=== PATIENT | female | born 1990 | race African-American/Black ===

== ENCOUNTER 2019-12-07 13:40 | Emergency (ER) | payer BC, SELFPAY ==
--- NOTE | ~2019-12-07 | US_ITS ---
EXAMINATION: US OB <= 14 weeks fetus DATE: 12/07/2019 14:40 INDICATION: Pelvic pain during first trimester TECHNIQUE: Real-time pelvic transabdominal and transvaginal ultrasound was performed. COMPARISON: None. FINDINGS: The uterus measures 11.8 x 8.4 x 8.6 cm. The placenta is fundal and 2.3 cm from the technical internship al cervical os. The fetus is in variable presentation. heart motion is identified measuring 159 beats per minute (bpm) by M-mode Doppler. The following biometric data were obtained: Biparietal diameter (BPD): 2.3 cm; head circumference (HC): 9.1 cm; abdominal circumference (AC): 7.5 cm; femur length (FL): 1.2 cm. These measurements are concordant. Estimated weight is 34 g +/- 12 g, which correlates with the 63rd percentile when 06/06/2020 is used as estimated date of delivery. As single measurements, these parameters are each equal to the following estimated gestational ages w ith ranges of +/- 2 standard deviations: BPD: 14 weeks 0 days +/- 1 weeks 1 days. HC: 14 weeks 1 days +/- 1 weeks 1 days. AC: 14 weeks 0 days +/- 1 weeks 5 days. FL: 13 weeks 4 days +/- 1 weeks 3 days. estimated gestational age based solely on measurements from this exam is 14 weeks 0 days +/- 1 weeks 0 days. IMPRESSION: 1. Single live intrauterine . 2. No sonographic correlate for the patient's symptoms. Reviewed, dictated and finalized at location A.
[2019-12-07 14:19] VITALS: BP 131/85; PULSE 96; RESP 20; TEMP 36.6; O2SAT 100
[2019-12-07] MEDS: PROCHLORPERAZINE EDISYLATE 10 MG/2 ML VIAL IV PUSH (14:48)
[2019-12-07] MEDS: FAMOTIDINE 20 MG/2 ML VIAL IV PUSH (14:48)
[2019-12-07] MEDS: DEXTROSE 5%/LACTATED RINGERS 1,000 ML 999 ML IV CONT ×2 (14:48→16:24)
--- NOTE | 2019-12-07 14:50 | ED.GENADULT ---
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 Bear. Patient has been having vomiting for the last 3 days has not taken anything for her symptoms notes multiple episodes of emesis. Patient notes aching pain of the abdomen from vomiting denies any vaginal bleeding or discharge. Patient denies sick contacts or recent URI symptoms. Patient notes G3, P2. Patient has had an ultrasound in this with no complications <Vince Beckham PA-C - Last Filed: 12/07/19 16:19> Related Data Allergies/adverse reactions: Allergies Allergy/AdvReac Type Severity Reaction Status Date / Time No Known Allergies Allergy Verified 12/07/19 14:21 <Vince Beckham PA-C - Last Filed: 12/07/19 16:19> Review of Systems Review of Systems: All systems reviewed & are unremarkable except as noted in HPI and below <Vince Beckham PA-C - Last Filed: 12/07/19 16:19> PMFSH Social History Social History: Social History (Updated 12/07/19 @ 15:08 by Vince Beckham PA-C) Smoking status: Never smoker <Vince Beckham PA-C - Last Filed: 12/07/19 16:19> Exam Narrative: Exam Narrative: GENERAL: Well-appearing, well-nourished, and in no acute distress. HEAD: Normocephalic, atraumatic. EYES: PERRLA and EOMI. ENT: Nares clear, no rhinorrhea or epistaxis. Mucous membranes moist. CHEST: Clear to auscultation. No respiratory distress. No wheezes rales or rhonchi HEART: Regular rate and rhythm. No murmur heard. Normal peripheral pulses. ABDOMEN: Soft, mild discomfort of the abdomen on palpation, distended EXTREMITIES: Normal range of motion. No edema. SKIN: Warm, dry, no rash. NEURO: No focal deficits. Alert and oriented x3. PSYCH: Normal mood and affect. <NIKI Jin Last Filed: 12/07/19 16:19> Course Course Emergency Course: Patient in the room in no distress aware of case findings treatment plan and diagnosis agreeing to follow-up with gynecology as instructed <Vince Beckham PA-C - Last Filed: 12/07/19 16:19> Vital Signs Vital signs: Vital Signs Temperature 36.6 C 12/07/19 14:19 Pulse Rate 96 12/07/19 14:19 Respiratory Rate 20 12/07/19 14:19 Blood Pressure 131/85 12/07/19 14:19 Pulse Oximetry 100 12/07/19 14:19 Temperature 36.6 C 12/07/19 14:19 Pulse Rate 80 12/07/19 16:25 Respiratory Rate 20 12/07/19 16:25 Blood Pressure 118/80 12/07/19 16:25 Pulse Oximetry 99 12/07/19 16:25 <Vince Beckham PA-C - Last Filed: 12/07/19 16:19> Vital Signs Temperature 36.6 C 12/07/19 14:19 Pulse Rate 96 12/07/19 14:19 Respiratory Rate 20 12/07/19 14:19 Blood Pressure 131/85 12/07/19 14:19 Pulse Oximetry 100 12/07/19 14:19 Temperature 36.6 C 12/07/19 14:19 Pulse Rate 80 12/07/19 16:25 Respiratory Rate 20 12/07/19 16:25 Blood Pressure 118/80 12/07/19 16:25 Pulse Oximetry 99 12/07/19 16:25 <Liset Taylor MD - Last Filed: 12/07/19 17:23> Medical Decision Making MDM Narrative Medical decision making narrative: Patient was hydrated in the emergency department with likely emesis secondary to her was given medications 2 L of fluid and is feeling much better at this time tolerating p.o. intake denying any current pain agreeing to follow-up as directed provided with reasons to return <NIKI Jin Last Filed: 12/07/19 16:19> Vital Signs Vital Signs: Vital Signs Temperature 36.6 C 12/07/19 14:19 Pulse Rate 96 12/07/19 14:19 Respiratory Rate 20
[2019-12-07 15:06] LABS: Add Urine Microscopic? YES; Appearance Urine Cloudy (Clear); Bacteria Urine Trace /hpf; Bilirubin Urine Negative (Negative); Blood Urine Negative (Negative); Color Urine Yellow (Yellow); Glucose Urine UA Negative (Negative); Ketones Urine 2+ mg/dL (Negative); Leukocyte Esterase Ur Negative LEU/UL (Negative); Mucus Urine Heavy /lpf; Nitrate Urine Negative (Negative); Protein Urine 1+ mg/dL (Negative); Specific Grav Ur 1.024 (1.001-1.035); Squamous Epithelial Cell Urine Many /hpf (Few)
[2019-12-07 15:10] LABS: Basophils Percent Auto 0.2 % (0.2-1.2); Eosinophils Percent Auto 0.4 % (0-4.4); Hematocrit 35.5 % (37.0-47.0); Hemoglobin 12.3 g/dL (12.0-15.0); Immature Granulocyte Absolute 0.03 K/mm3 (0.00-0.031); Immature Granulocyte Percent A 0.3 % (0-0.5); Lymphocytes Absolute Auto 1.85 K/mm3 (0.9-3.2); Lymphocytes Percent Auto 20.6 % (18.3-44.2); Mean Corpuscular HGB Conc 34.6 g/dl (32-36); Mean Corpuscular Hemoglobin 27.2 pg (26-34); Mean Corpuscular Volume 78.4 fl (80-100); Mean Platelet Volume 11.2 fl (7.4-10.4); Monocytes Absolute Auto 0.7 K/mm3 (0.1-0.6); Monocytes Percent Auto 7.9 % (2.6-8.5); Neutrophils Absolute Auto 6.3 K/mm3 (1.3-6.7); Neutrophils Percent Auto 70.6 % (45.5-73.1); Platelet Count Result 207 k/mm3 (150-375); Red Blood Count 4.53 M/mm3 (4.2-5.4); Red Cell Distribution Width 13.2 % (11.5-14.5)
[2019-12-07 15:21] LABS: Alanine Aminotransferase 9 U/L (4-35); Albumin Level 3.9 g/dL (3.5-5.1); Alkaline Phosphatase 43 U/L (38-126); Aspartate Amino Transferase 18 U/L (14-36); Bilirubin,Total 0.6 mg/dL (0.2-1.3); Blood Urea Nitrogen 3 mg/dL (7-17); Calcium 8.9 mg/dL (8.4-10.2); Carbon Dioxide 21 mmol/L (22-30); Chloride 106 mmol/L (98-107); Estimated Glomerular Filt Rate > 60; Glucose 94 mg/dL (65-105); Lipase 100 U/L (23-300); Potassium 3.7 mmol/L (3.4-5.0); Sodium 133 mmol/L (137-145)
[2019-12-07] MEDS: DEXTROSE 5%/LACTATED RINGERS 1,000 ML 1000 ML IV CONT (15:35)
[2019-12-07 16:25] VITALS: BP 118/80; PULSE 80; RESP 20; O2SAT 99
== END 2019-12-07 16:27 | disposition home or self-care (01) ==
PROVIDERS: Emergency Medicine Emergency Medical Services; Emergency Provider Emergency Medicine; PCP Obstetrics & Gynecology
DX: O21.9 Vomiting of pregnancy, unspecified (principal); Z3A.13 13 weeks gestation of pregnancy
CPT/HCPCS: 36415; 76801; 80053; 81001; 81025; 83690; 85025; 96361; 96374; 96375; 99284; J0780; J7121

== ENCOUNTER 2020-04-17 13:39 | Outpatient (CLI) | payer BC, SELFPAY ==
--- NOTE | ~2020-04-17 | US_ITS ---
EXAMINATION: US OB follow up DATE: 04/17/2020 14:15 INDICATION: Routine care during third trimester TECHNIQUE: Real-time ultrasound of the pelvis was performed. The interpreting radiologist was not pre sent for the study. COMPARISON: None. FINDINGS: There is a single living fetus in vertex presentation. The placenta is posterior. car diac activity and movement are noted. heart rate is 155 beats per minute (bpm). The amnio tic fluid index is 9.1 cm which is normal. The following biometric data were obtained: Biparietal diameter (BPD): 8.0 cm; head circumference (HC): 28.9 cm; abdominal circumference (AC): 27 .3 cm; femur length (FL): 6.2 cm. These measurements are concordant. Estimated weight is 1854 g +/- 278 g, which correlates with the 27th percentile when 06/10/2020 is used as estimated date of delivery. As single measurements, these parameters are each equal to the following estimated gestational ages w ith ranges of +/- 2 standard deviations: BPD: 32 weeks 2 days +/- 3 weeks 1 days. HC: 31 weeks 6 days +/- 3 weeks 0 days. AC: 31 weeks 3 days +/- 3 weeks 0 days. FL: 32 weeks 4 days +/- 3 weeks 0 days. estimated gestational age based solely on measurements from this exam is 32 weeks 0 days +/- 2 weeks 2 days. IMPRESSION: 1. Single living fetus in vertex presentation. 2. Normal amniotic fluid index. 3. Estimated weight is 1854 g +/- 278 g, which correlates with the 27th percentile when 020 is used as estimated date of delivery. Reviewed, dictated and finalized at location A. IMPRESSION: 1. Single living fetus in vertex presentation. 2. Normal amniotic fluid index. 3. Estimated weight is 1854 g +/- 278 g, which correlates with the 27th p ercentile when 06/10/2020 is used as estimated date of delivery.
== END 2020-04-17 13:40 | disposition home or self-care (01) ==
PROVIDERS: PCP Obstetrics & Gynecology; Visit Provider Obstetrics & Gynecology
DX: Z36.9 Encounter for antenatal screening, unspecified (principal)
CPT/HCPCS: 76816

== ENCOUNTER 2020-05-30 14:24 | Observation (INO) | payer BC, SELFPAY ==
[2020-05-30 15:00] VITALS: BP 113/68; PULSE 88
[2020-05-30 15:15] VITALS: BP 116/65; PULSE 89
[2020-05-30 15:30] VITALS: TEMP 36.6
[2020-05-30 15:31] VITALS: BP 119/73; PULSE 84
[2020-05-30 15:47] VITALS: BP 101/63; PULSE 125
[2020-05-30 16:00] VITALS: BP 93/65; PULSE 98
--- NOTE | 2020-05-30 17:10 | OBADM ---
This patient, Tasha Schmitt, admitted to the OB room Labor/Delivery/Recovery 119 for observation. Patient/family oriented to hospital policies and general routines including ID bracelet, bed and alarms, visiting hours, pain management, procedures, bathroom and other care routines, personal items, smoking policy, room service/diet, and visiting hours. Patient/Family are encouraged to report perceived risks to care and to ask questions if they do not understand what they are told or what they should do.
--- NOTE | 2020-05-31 06:56 | PM.OBTRLD ---
OB - Triage/Final Diagnosis Visit Information Date of evaluation: 05/29/20 Reason for evaluation: threatened labor Evaluation Variability: Average (6-10) monitor accelerations: Present monitor decelerations: None Cervical dilation (cm): 0 Cervical effacement (%): 0 station: -4 Final Diagnosis (1) Term : Code(s): Z34.90 - Encounter for supervision of normal , unspecified, unspecified trimester Status: Acute (2) False labor after 37 completed weeks of gestation: Code(s): O47.1 - False labor at or after 37 completed weeks of gestation Status: Acute
== END 2020-05-30 17:00 | disposition home or self-care (01) ==
PROVIDERS: Admitting Provider Obstetrics & Gynecology; Visit Provider Obstetrics & Gynecology
DX: O47.9 False labor, unspecified (principal); Z3A.00 Weeks of gestation of pregnancy not specified
CPT/HCPCS: G0378; G0379

== ENCOUNTER 2020-06-03 13:09 | Inpatient (IN) | payer BC, SELFPAY ==
[2020-05-30 16:25] VITALS: BMI 30.7
[2020-06-03] VITALS (43 sets, daily range): BP systolic 118–176; BP diastolic 65–132; PULSE 69–240; RESP 14–18; TEMP 36.3–37.1; O2SAT 95–100
--- NOTE | 2020-06-03 13:09 | LDADM ---
This patient, Tasha Schmitt, was admitted to OB Post 116 on 06/03/20 at 13:10. Plans for labor, pain management and were discussed with patient. Patient/family oriented to hospital policies and general routines including ID bracelet, bed and alarms, visiting hours, pain management, procedures, bathroom and other care routines, personal items, smoking policy, room service/diet and guest tray routines, security routines, and visiting hours. Patient/Family are encouraged to report perceived risks to care and to ask questions if they do not understand what they are told or what they should do. See OBIX for further documentation.
[2020-06-03] MEDS: LACTATED RINGERS 1,000 ML 999 ML IV CONT ×3 (15:05→18:25)
[2020-06-03 16:10] LABS: Basophils Percent Auto 0.2 % (0.2-1.2); Eosinophils Percent Auto 0.2 % (0-4.4); Hematocrit 32.4 % (37.0-47.0); Hemoglobin 10.7 g/dL (12.0-15.0); Immature Granulocyte Absolute 0.06 K/mm3 (0.00-0.031); Immature Granulocyte Percent A 0.7 % (0-0.5); Lymphocytes Absolute Auto 1.58 K/mm3 (0.9-3.2); Lymphocytes Percent Auto 17.2 % (18.3-44.2); Mean Corpuscular Hemoglobin 26.7 pg (26-34); Mean Corpuscular Volume 80.8 fl (80-100); Mean Platelet Volume 12.2 fl (7.4-10.4); Monocytes Absolute Auto 0.5 K/mm3 (0.1-0.6); Monocytes Percent Auto 5.8 % (2.6-8.5); Neutrophils Percent Auto 75.9 % (45.5-73.1); Platelet Count Result 181 k/mm3 (150-375); Red Blood Count 4.01 M/mm3 (4.2-5.4); Red Cell Distribution Width 14.2 % (11.5-14.5); White Blood Count 9.2 K/mm3 (4.5-10.0)
--- NOTE | 2020-06-03 17:12 | WPDANESEPPF ---
Anes - Initial Pre Proc Eval Procedure: Operation Date: 06/03/20 17:00 Proposed Procedures p Section - Francisco Bear MD Operation Date: 06/07/20 10:30 Proposed Procedures p Repeat Low Transverse Section - Francisco Bear MD Date/Time: 06/03/20 17:12 Surgeon: Francisco Bear MD Pre Op Diagnosis: contractions Patient Data Age: 29 Gender: F Height: 1.6 m Weight: 78.5 kg Last Vital Signs Temp 37.1 C 06/03/20 16:30 Allergies Allergy/AdvReac Type Severity Reaction Status Date / Time No Known Allergies Allergy Verified 12/07/19 14:21 Home Medications Medication Instructions Recorded Confirmed Type [id number] fumarate-FA 1 tablet PO DAILY 05/30/20 06/03/20 History [] acyclovir 800 mg PO DAILY 05/30/20 06/03/20 History ferrous gluconate 324 mg PO DAILY 05/30/20 06/03/20 History Laboratory Tests 06/03/20 06/03/20 06/03/20 15:59 15:59 15:59 WBC 9.2 K/mm3 K/mm3 (4.5-10.0) RBC 4.01 M/mm3 L M/mm3 (4.2-5.4) Hgb 10.7 g/dL L g/dL (12.0-15.0) Hct 32.4 % L % (37.0-47.0) MCV 80.8 fl fl (80-100) MCH 26.7 pg pg (26-34) MCHC 33.0 g/dl g/dl (32-36) RDW 14.2 % % (11.5-14.5) Plt Count 181 k/mm3 k/mm3 (150-375) MPV 12.2 fl H fl (7.4-10.4) Immature Gran % (Auto) 0.7 % H % (0-0.5) Neut % (Auto) 75.9 % H % (45.5-73.1) Lymph % (Auto) 17.2 % L % (18.3-44.2) [place] % (Auto) 5.8 % % (2.6-8.5) Eos % (Auto) 0.2 % % (0-4.4) Baso % (Auto) 0.2 % % (0.2-1.2) Lymph # (Auto) 1.58 K/mm3 K/mm3 (0.9-3.2) [place] # (Auto) 0.5 K/mm3 K/mm3 (0.1-0.6) Eos # (Auto) 0.0 K/mm3 K/mm3 (0-0.3) Baso # (Auto) 0.0 K/mm3 K/mm3 (0.0-0.1) Abs Immat Gran (auto) 0.06 K/mm3 H K/mm3 (0.00-0.031) Absolute Neuts (auto) 7.0 K/mm3 H K/mm3 (1.3-6.7) Absolute Nucleated RBC 0.0 K/mm3 K/mm3 (0.0-0.012) Nucleated RBC % 0.0 % % (0.0-0.2) RPR Pending Blood Type A Positive Antibody Screen Negative Patient hx anesthesia problems: none Family hx anesthesia problems: none PMFSH Past Medical History Medical History (Updated 06/03/20 @ 16:01 by Francisco Bear MD) Anemia affecting Delivered by delivery following previous delivery 01-22-2015, 39 wks 1. M, 6lbs 7oz, repeat Genital herpes GERD (gastroesophageal reflux disease) Group B streptococcal carriage complicating Sickle cell trait Surgical History Surgical History (Updated 06/03/20 @ 16:02 by Francisco Bear MD) Delivery by section 05-21-2013, 40 wks 1. F, 7lbs 1oz, Primary Delivery by section 01-22-2015, 39 wks 1. M, 6lbs 7oz, Family History Family History Grandparent Diabetes mellitus Congestive heart failure Social History Social History (Updated 06/03/20 @ 16:03 by Francisco Bear MD) Smoking status: Former smoker Second hand tobacco smoke exposure: No Alcohol intake: never Substance use: never Substance use type: does not use Last use: October 2019 Living arrangements: with family Occupation/Education: unemployed Gender identity (if verbalized by the patient): Female Sexual Orientation (if Verbalized by the Patient): Straight or Heterosexual Spiritual care concerns: No Agree to blood products: Yes Anes - Evdannielle Final PreProcedure Day of Procedure 06/03/20 17:12 Patient weight: overweight Heart: regular rate and rhythm Lungs: clear to auscultation and normal air movement Airway: Mallampati scale class II Neurological: alert and oriented Last oral intake: >/= 8 hours ASA classification: II Emergent: no Anesthetic plan: proceed Anesthesia
--- NOTE | 2020-06-03 17:23 | P.OP_ITS ---
Procedure Note - Detailed Date of procedure: 06/03/20 Pre-op diagnosis: contractions Term Previous desires repeat section GBS HSV Sickle cell trait Anemia GERD Post-op diagnosis: same (Delivered viable FEMALE infant and placenta) Procedure performed: Repeat low-transverse section with delivery of viable FEMALE infant and placenta Description of procedure: Informed consent was obtained the patient was taken to the operating room where spinal anesthetic was administered. Her abdomen was prepped and draped after a Choi catheter was inserted. A time-out was performed. An elliptical incision was made around the old scar and the old scar was excised using electrocautery. The fascia was entered with electrocautery and extended bilaterally then undermined inferior and superior after this the rectus muscles were in the midline and the peritoneum was entered with electrocautery and the omentum was freed up from the lower uterine segment. The lower in uterine segment appeared to be appearing occult dehiscence by the thin membrane protruding through the lower segment and then rupture of membranes revealed clear fluid. The incision was extended bilaterally the vertex was then delivered via the abdominal incision with nose and throat being bulb suction the cord was clamped and cut and the infant was handed to the nursery nurse in attendance. scores given were 8 and 9 at 1 and 5 minutes baby born at 5:45 p.m. weighing 6 lb 5 oz 18 in long taken to the nursery in stable condition had a normal transition. Cord gases and cord blood were then obtained from the placenta and the placenta was delivered intact with three- vessel cord a very short cord. The uterus contracted well with Pitocin given intravenously and 10 units into the myometrium with the uterus externalized blood clots and membranes removed from the intrauterine cavity and then the uterine incision was repaired in 2 layers with 0 Vicryl in a running interlocking fashion the 2nd being an imbricating stitch adhesiolysis of the omentum from the anterior abdominal wall was then followed by replacing the uterus to the anterior abdominal cavity and irrigation sponge needle and instrument counts were correct the anterior peritoneum and rectus muscles were then reapproximated in the midline in a running fashion with 0 Vicryl suture. Quill SIRS system 2. Was then used to close the fascia in a bilateral fashion. Subcutaneous tissues reapproximated with 3 0 plain suture interrupted fashion skin closed with absorbable staple device INSORB. DERMABOND APPLIED TO THE INCISION AND THEN A MEPILEX DRESSING APPLIED patient was taken to the recovery room stable condition tolerated the procedure well she is breast and bottle feeding blood loss 930 mL Anesthesia: spinal Surgeon: Francisco Bear MD Briquetter Operator: satellite dish technician x2 Estimated blood loss (mL): 930 IV fluids (mL): 2,000 Urine output (mL): 200 Drains: Yes (Choi) Packing: No Pathology: yes (Placenta, cord gases, cord blood) Complications: None Condition: stable Disposition: PACU Findings: Viable FEMALE infant (Jacob Vaz) delivered at 1745 scores 8 + 9 weight 6 lb 5 oz 2860 g length 19 inches SPONTANEOUS RESPIRATIONS AND CRY BULB SUCTION WITH DELIVERY normal exam taken to nursery stable condition normal transition breast and bottle feeding Placenta delivered intact three-vessel cord sent to pathology after cord gases and cord blood obtained very short cord Uterus tubes ovaries normal adhesions omentum anterior abdominal wall Counts correct Complications none Antibiotic prophylaxis Ancef 2 g VTE prevention SCDs To recovery room stable
--- NOTE | 2020-06-03 17:26 | P.PCNOB_ITS ---
OB - Delivery Note Procedure Delivery date: 06/03/20 Procedure: Procedures Operation Date: 06/03/20 17:00 Repeat low-transverse section with delivery of viable and placenta Operation Date: 06/07/20 10:30 None events: Previous Intrapartal events: None Induction method: none Delivery monitor: external FHT and external uterine Route of delivery: (Repeat low-transverse) Episiotomy description: None Laceration Description: None Specimen: Yes Anesthesia type: Spinal Disposition: floor Complications: None Narrative: See dictated report [place] Baby Date of : 06/03/20 Time of : 17:45 Weeks of gestation at delivery: 39 Infant gender: Female (Jacob Vaz) Weight (pounds): 6 Weight (ounces): 5 presentation: vertex position: Left Occiput Anterior Placenta delivery description: Manual Removal and Normal Configuration cord vessel description: 3 Vessels (Short cord) and Clamped/Cut score one minute: 8 score five minutes: 9
[2020-06-03] MEDS: ceFAZolin 2 GM/D5W 50 ML 2 GM/50 ML BAG IVPB (17:28)
[2020-06-03] MEDS: OXYTOCIN 10 UNITS/ML VIAL XX (17:47)
[2020-06-03] MEDS: LORATADINE 10 MG TABLET PO (18:48)
--- NOTE | 2020-06-03 19:25 | PM.OBDSVD ---
DS: Admitting Diagnosis Admitting Diagnosis Admitting Diagnosis: contractions Term Spontaneous onset of labor Previous desires repeat section HSV GBS Sickle cell trait Anemia GERD DS: Discharge Diagnosis Discharge Diagnosis (1) Term delivered: Code(s): O80 - Encounter for full-term uncomplicated delivery Status: Acute (2) S/P repeat low transverse : Code(s): Z98.891 - History of uterine scar from previous surgery Status: Acute (3) Sickle cell trait: Code(s): D57.3 - Sickle-cell trait Status: Acute (4) Group B streptococcal carriage complicating : Code(s): O99.820 - Streptococcus B carrier state complicating Status: Acute (5) Delivery by section: Status: Acute (6) Genital herpes: Code(s): A60.00 - Herpesviral infection of urogenital system, unspecified Status: Acute (7) Anemia affecting : Code(s): O99.019 - Anemia complicating , unspecified trimester Status: Acute OB - DS: Summary Hospital Course Time spent discussing smoking cessation with patient: 3 to 10 minutes OB Procedures : Ultrasound OB Procedures Intrapartum: (Repeat) low cervical, transverse OB Procedures: : None Peripartum Data Infant Delivery Method: Section (Repeat) Laceration Description: None Episiotomy description: None Procedures: Procedures Operation Date: 06/03/20 17:00 Actual Procedures Side Surgeon p Section Francisco Bear MD Operation Date: 06/07/20 10:30 <No data on this case meets the specified criteria> complications: none [place] 1: Gender: Female Disposition of : home Status at Discharge Functional status at discharge: independent ambulation Overall status at discharge: patient is back to baseline Time Spent with Patient Time attestation: Total time spent providing and/or coordinating discharge services: Time spent: Less than 30 minutes Exam Const: General: cooperative Nutritional Appearance: average body habitus Limitations: no limitations HENMT: Head: normal to inspection Eyes: General: appearance normal, both eyes and all related structures Neck: Neck: normal visual inspection and full ROM Chest: Chest palpation & inspection: normal inspection of the chest Breast/axilla inspection: normal inspection of the breasts Breast/axilla palpation: normal palpation of the breasts Resp: Effort & Inspection: normal respiratory effort Auscultation: clear to auscultation bilaterally Cardio: Rate: regular rate Rhythm: regular rhythm Heart sounds: S1 normal heart sound present and S2 normal heart sound present GI: Inspection: normal to inspection and incision (Clean dry intact dressing) GI Palp: Yes Soft to palpation Percussion: Yes normal to percussion Auscultation: normal bowel sounds : External Female Exam: normal external appearance Bimanual exam- vagina & uterus: non-tender Back/Spine/Pelvis: Back: no CVA tenderness Skin: General skin exam: normal color Neuro: General: patient oriented x3, gait normal, tone normal and moves all extremities Extrem: General: normal to inspection and full ROM Psych: Appearance: grossly normal Mental Status: mental status grossly normal Speech and movement: Normal speech and movement present Affect: normal affect Attitude: cooperative Thought process: Normal thought process present Thought content: Yes Normal thought content present Insight: Good insight present (Psych) Judgement: Good judgement present (Psych) DS: Data Data Completed and Pending Pending studies at discharge: Pending at discharge 06/03/20 17:47 Surgical [PTH] Routine Labs on day of discharge: Labs from last 24 hours 06/03/20 06/03/20 06/03/20 15:59 15:59 15:59 WBC 9.2 RBC 4.01 L Hgb 10.7 L Hct 32.4 L MCV 80.8 MCH
[2020-06-03] MEDS: KETOROLAC 30 MG/ML VIAL (*BKC) IV PUSH (20:23)
--- NOTE | 2020-06-03 20:42 | OBPPTRN ---
Patient transferred to post room #282 via stretcher. Support person present. Oriented to unit, room, information board, rooming in, admission packet and security measures. Patient verbalizes understanding.
[2020-06-03] MEDS: OXYTOCIN 30 UNITS/NS 500 ML 30 UNITS/500 ML BAG 125 UNITS IV CONT (20:54)
[2020-06-04] VITALS: BP 135/83; PULSE 75; RESP 16; TEMP 36.9; O2SAT 100
[2020-06-04] MEDS: DEXTROSE 5%/0.45% SOD CHL 1,000 ML 125 ML IV CONT (00:52)
[2020-06-04] MEDS: KETOROLAC 30 MG/ML VIAL (*BKC) IV PUSH (02:03)
[2020-06-04 04:00] VITALS: BP 113/75; PULSE 71; RESP 16; TEMP 36.7; O2SAT 100
[2020-06-04 05:30] LABS: Basophils Percent Auto 0.2 % (0.2-1.2); Eosinophils Absolute Auto 0.1 K/mm3 (0-0.3); Eosinophils Percent Auto 0.5 % (0-4.4); Hematocrit 31.2 % (37.0-47.0); Hemoglobin 10.3 g/dL (12.0-15.0); Immature Granulocyte Absolute 0.06 K/mm3 (0.00-0.031); Immature Granulocyte Percent A 0.5 % (0-0.5); Lymphocytes Absolute Auto 2.05 K/mm3 (0.9-3.2); Lymphocytes Percent Auto 16.6 % (18.3-44.2); Mean Corpuscular Hemoglobin 25.9 pg (26-34); Mean Corpuscular Volume 78.6 fl (80-100); Mean Platelet Volume 12.3 fl (7.4-10.4); Monocytes Percent Auto 8.1 % (2.6-8.5); Neutrophils Absolute Auto 9.1 K/mm3 (1.3-6.7); Neutrophils Percent Auto 74.1 % (45.5-73.1); Platelet Count Result 200 k/mm3 (150-375); Red Blood Count 3.97 M/mm3 (4.2-5.4); Red Cell Distribution Width 13.7 % (11.5-14.5); White Blood Count 12.3 K/mm3 (4.5-10.0)
[2020-06-04 07:50] VITALS: BP 126/88; PULSE 82; RESP 18; TEMP 37.7; O2SAT 100
--- NOTE | 2020-06-04 08:59 | PM.OBPNVD ---
OB - PN: Subj Subjective Date/time seen: 06/04/20 08:59 Patient comments: no complaints, pain well controlled, tolerating diet and flatus present baby status: doing well and bottle feeding well feeding status: exclusively bottle feeding OB - PN: Obj Data Labs CBC & Chem 7: 06/04/20 03:56 Labs: Laboratory Results - last 24 hr 06/03/20 06/03/20 06/04/20 15:59 15:59 03:56 WBC 9.2 12.3 H RBC 4.01 L 3.97 L Hgb 10.7 L 10.3 L Hct 32.4 L 31.2 L MCV 80.8 78.6 L MCH 26.7 25.9 L MCHC 33.0 33.0 RDW 14.2 13.7 Plt Count 181 200 MPV 12.2 H 12.3 H Immature Gran % (Auto) 0.7 H 0.5 Neut % (Auto) 75.9 H 74.1 H Lymph % (Auto) 17.2 L 16.6 L [place] % (Auto) 5.8 8.1 Eos % (Auto) 0.2 0.5 Baso % (Auto) 0.2 0.2 Lymph # (Auto) 1.58 2.05 [place] # (Auto) 0.5 1.0 H Eos # (Auto) 0.0 0.1 Baso # (Auto) 0.0 0.0 Abs Immat Gran (auto) 0.06 H 0.06 H Absolute Neuts (auto) 7.0 H 9.1 H Absolute Nucleated RBC 0.0 0.0 Nucleated RBC % 0.0 0.0 Blood Type A Positive Antibody Screen Negative OB - PN A/P Assessment and Plan (1) S/P repeat low transverse : Code(s): Z98.891 - History of uterine scar from previous surgery Status: Acute (2) Term delivered: Code(s): O80 - Encounter for full-term uncomplicated delivery Status: Acute (3) Sickle cell trait: Code(s): D57.3 - Sickle-cell trait Status: Acute (4) Anemia affecting : Code(s): O99.019 - Anemia complicating , unspecified trimester Status: Acute Plan day: 1 Plan: routine care, discharge home (Tomorrow) and follow up 6 weeks (3 weeks) Time Spent With Patient Time: Total time spent is greater than 50% in coordination of care (as documented) at patient's floor/unit and/or counseling patient: Time with patient: less than 15 minutes Review of Systems Review of Systems: All systems reviewed & are unremarkable except as noted in HPI and below Exam Const: General: cooperative, healthy appearing, comfortable, no acute distress, well developed, alert, awake and Physically active Nutritional Appearance: average body habitus and well nourished Orientation/consciousness: patient oriented x3 Limitations: no limitations HENMT: Head: normal to inspection Eyes: General: appearance normal, both eyes and all related structures Neck: Neck: normal visual inspection and full ROM Chest: Chest palpation & inspection: normal inspection of the chest Resp: Effort & Inspection: normal respiratory effort Cardio: Rate: regular rate Rhythm: regular rhythm GI: Inspection: normal to inspection GI Palp: Yes Soft to palpation Auscultation: normal bowel sounds : External Female Exam: normal external appearance Urinary Catheter: Urinary Catheter: patent and draining and urine clear Back/Spine/Pelvis: Back: no CVA tenderness Skin: General skin exam: normal color Neuro: General: patient oriented x3, tone normal and moves all extremities Extrem: General: normal to inspection, full ROM and no calf tenderness Psych: Appearance: grossly normal Mental Status: mental status grossly normal Speech and movement: Normal speech and movement present Affect: normal affect Attitude: cooperative Thought process: Normal thought process present Thought content: Yes Normal thought content present Insight: Good insight present (Psych) Judgement: Good judgement present (Psych)
--- NOTE | 2020-06-04 09:05 | PC.NURSE ---
consult with pt., mother reports is latching without issues. Mother chooses to breast and supplement, as she did with other children. Requested mother call out next feeding to review . Reviewed infant feeding cues, frequencies, duration of feedings, feeding elimination flow sheet, and signs of adequate intake.
[2020-06-04] MEDS: MULTIVIT/MIN/PREN/FOL AC/IRON TABLET 1 TAB PO (10:47)
[2020-06-04] MEDS: HYDROcodone/acetaminophen (*CRX) 10-325 MG TABLET 1 TAB PO ×3 (10:47→21:00)
[2020-06-04] MEDS: DOCUSATE SODIUM 100 MG CAPSULE PO ×2 (10:47→17:44)
[2020-06-04] MEDS: ACYCLOVIR 400 MG TABLET 800 MG PO (10:47)
[2020-06-04] MEDS: FERROUS GLUCONATE 324 MG TABLET PO (10:53)
[2020-06-04 11:01] LABS: Rapid Plasma Reagin Non-Reactive (NonReactive)
--- NOTE | 2020-06-04 11:04 | WPDANLDPN2 ---
Anes-Prog Note L&D Date/Time: 06/04/20 11:04 Comfortable throughout: section Neuraxial method: spinal Epidural/Spinal procedure site: clean & non-tender Neuro status: Neuro function grossly intact. Cardiovascular status: normal Respiratory status: normal Airway patency: baseline Mental status: baseline Post-Op hydration status: normal Vital Signs: Last Vital Signs Temp 37.7 C H 06/04/20 07:50 Pulse 82 06/04/20 07:50 Resp 18 06/04/20 07:50 BP 126/88 06/04/20 07:50 Pulse Ox 100 06/04/20 07:50 Pain score (VAS): 5 I/O: Intake & Output 06/03/20 06/04/20 06/04/20 23:59 07:59 15:59 Intake Total 3100 1590 Output Total 1430 1100 Balance 1670 490 Post-procedural complaints: none Patient feedback: Patient satisfied with anesthetic care.
--- NOTE | 2020-06-04 11:05 | WPDANLDNPN2 ---
Anes-Prog Note L&D-Neuraxial Date/Time: 06/04/20 11:05 Neuraxial medications: intrathecal PF morphine Opiod-related complaints: none Patient feedback: Patient satisfied with post-operative pain management.
[2020-06-04 11:35] VITALS: BP 131/87; PULSE 75; RESP 18; TEMP 37.4; O2SAT 100
[2020-06-04] MEDS: IBUPROFEN 600 MG TABLET PO (17:45)
[2020-06-04 20:00] VITALS: BP 132/94; PULSE 86; RESP 16; TEMP 36.7; O2SAT 100
[2020-06-04] MEDS: diphenhydrAMINE HCl CAP 25 MG CAPSULE 50 MG PO (22:00)
[2020-06-05] MEDS: HYDROcodone/acetaminophen (*CRX) 10-325 MG TABLET 1 TAB PO ×3 (02:20→15:23)
[2020-06-05] MEDS: IBUPROFEN 600 MG TABLET PO ×2 (02:20→15:24)
[2020-06-05] MEDS: MULTIVIT/MIN/PREN/FOL AC/IRON TABLET 1 TAB PO (06:49)
[2020-06-05] MEDS: DOCUSATE SODIUM 100 MG CAPSULE PO (06:49)
[2020-06-05 08:40] VITALS: BP 112/63; PULSE 92; RESP 18; TEMP 36.7; O2SAT 100
[2020-06-05] MEDS: HYDROcodone/acetaminophen (*CRX) 5-325 MG TABLET 1 TAB PO (11:36)
--- NOTE | 2020-06-05 14:27 | PC.NURSE ---
Attempt to consult 2 times this day, patient is sleeping requesting a later visit.
[2020-06-05] MEDS: SIMETHICONE 80 MG TAB.CHEW PO (15:23)
[2020-06-05 19:03] VITALS: BP 117/90; PULSE 81; RESP 16; TEMP 36.7; O2SAT 100
[2020-06-06] MEDS: IBUPROFEN 600 MG TABLET PO ×2 (04:39→13:44)
[2020-06-06] MEDS: HYDROcodone/acetaminophen (*CRX) 5-325 MG TABLET 1 TAB PO (04:39)
[2020-06-06 08:05] VITALS: BP 158/99; PULSE 81; RESP 16; TEMP 37.3; O2SAT 98
--- NOTE | 2020-06-06 08:30 | P.PNOB_ITS ---
OB - PN: Subj Subjective Date/time seen: 06/05/20 08:30 Interval history: s/p rcs pod2 stable Patient comments: no complaints, pain well controlled and tolerating diet baby status: doing well and bottle feeding well feeding status: exclusively bottle feeding OB - PN: Obj Data Labs CBC & Chem 7: 06/04/20 03:56 OB - PN A/P Assessment and Plan (1) S/P repeat low transverse : Code(s): Z98.891 - History of uterine scar from previous surgery Status: Acute Plan day: 2 Plan: routine care, discharge home (In the morning) and follow up 6 weeks (3 week) Time Spent With Patient Time: Total time spent is greater than 50% in coordination of care (as document ed) at patient's floor/unit and/or counseling patient: Time with patient: less than 15 minutes Review of Systems Review of Systems: All systems reviewed & are unremarkable except as noted in HPI and below Exam Const: General: cooperative, healthy appearing, comfortable, no acute distress, alert, awake and Physically active Nutritional Appearance: average body habitus and well nourished Orientation/consciousness: patient oriented x3 Limitations: no limitations HENMT: Head: normal to inspection Eyes: General: appearance normal, both eyes and all related structures Neck: Neck: normal visual inspection Chest: Chest palpation & inspection: normal inspection of the chest Resp: Effort & Inspection: normal respiratory effort Auscultation: clear to auscultation bilaterally Cardio: Rate: regular rate Rhythm: regular rhythm GI: Inspection: normal to inspection and incision (Dressing dry and intact) GI Palp: Yes Soft to palpation Auscultation: normal bowel sounds : External Female Exam: normal external appearance Bimanual exam- vagina & uterus: non-tender Back/Spine/Pelvis: Back: no CVA tenderness Skin: General skin exam: normal color Neuro: General: patient oriented x3, gait normal, tone normal and moves all extremities Extrem: General: normal to inspection, full ROM and no calf tenderness Psych: Appearance: grossly normal Mental Status: mental status grossly normal Speech and movement: Normal speech and movement present Affect: normal affect Attitude: cooperative Thought process: Normal thought process present Thought content: Yes Normal thought content present Insight: Good insight present (Psych) Judgement: Good judgement present (Psych)
[2020-06-06] MEDS: MULTIVIT/MIN/PREN/FOL AC/IRON TABLET 1 TAB PO (08:52)
[2020-06-06] MEDS: HYDROcodone/acetaminophen (*CRX) 10-325 MG TABLET 1 TAB PO ×2 (08:52→13:45)
[2020-06-06] MEDS: DOCUSATE SODIUM 100 MG CAPSULE PO (08:52)
[2020-06-06] MEDS: FERROUS GLUCONATE 324 MG TABLET PO (08:53)
[2020-06-06] MEDS: ACYCLOVIR 400 MG TABLET 800 MG PO (08:53)
[2020-06-06 11:00] VITALS: BP 125/68
== END 2020-06-06 14:46 | disposition home or self-care (01) | DRG 540 ==
LOC: ANHOBPP 19:33 → ANHOB2 20:48
PROVIDERS: Admitting Provider Obstetrics & Gynecology; Visit Provider Obstetrics & Gynecology
PROC: 10D00Z1 Extraction of Products of Conception, Low, Open Approach (ICD-10-PCS; CPT 59514; principal; 2020-06-03 17:00)
DX: O99.824 Streptococcus B carrier state complicating childbirth (principal); O69.3XX0 Labor and delivery complicated by short cord, not applicable or unspecified; O98.52 Other viral diseases complicating childbirth; B00.9 Herpesviral infection, unspecified; O99.02 Anemia complicating childbirth; D64.9 Anemia, unspecified; D57.3 Sickle-cell trait; O99.62 Diseases of the digestive system complicating childbirth; K66.0 Peritoneal adhesions (postprocedural) (postinfection); Z3A.39 39 weeks gestation of pregnancy; Z37.0 Single live birth; O34.211 Maternal care for low transverse scar from previous cesarean delivery
CPT/HCPCS: 36415; 85025; 86592; 86850; 86900; 86901; 88307; A9270; J0131; J0690; J1885; J2274; J2370; J2405; J2590; J3010; J7120

== ENCOUNTER 2021-12-15 09:13 | Emergency (ER) | payer OTHER, BC, SELFPAY ==
[2021-12-15] VITALS (24 sets, daily range): BP systolic 128–164; BP diastolic 87–111; PULSE 72–117; RESP 8–32; TEMP 37.2; O2SAT 96–100
--- NOTE | ~2021-12-15 | XR_ITS ---
EXAMINATION: XR chest 2V 12/15/2021 10:48 INDICATION: Chest pain PROCEDURE: 2 view chest COMPARISON: No prior studies for comparison. FINDINGS: The lungs are clear. The cardiomediastinal silhouette is within normal limits. There are no pleural effusions. There is no pneumothorax suspected. IMPRESSION: 1: NO ACUTE CARDIOPULMONARY DISEASE. Reviewed, dictated and finalized at location B.
--- NOTE | 2021-12-15 09:42 | ECG_ITS ---
Measurements Intervals [place] Rate: 97 P: 71 TX: 127 QRS: 68 QRSD: 91 T: 51 QT: 335 QTc: 426 Interpretive Statements SINUS RHYTHM NORMAL ECG NO PREVIOUS ECG AVAILABLE FOR COMPARISON Electronically Signed On 12-15-2021 10:27:59 CDT by Bobby Bryan M.D.
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
[2021-12-15] MEDS: HYDROmorphone HCL INJ (*CRX) 1 MG/ML SYR 0.5 MG IV PUSH (10:39)
[2021-12-15] MEDS: SODIUM CHLORIDE 0.9% IV 1,000 ML 999 ML IV CONT (10:39)
[2021-12-15 10:41] LABS: Basophils Percent Auto 0.3 % (0.2-1.2); Eosinophils Percent Auto 0.2 % (0-4.4); Hematocrit 37.7 % (37.0-47.0); Hemoglobin 12.8 g/dL (12.0-15.0); Immature Granulocyte Absolute 0.03 K/mm3 (0.00-0.031); Immature Granulocyte Percent A 0.3 % (0-0.5); Lymphocytes Absolute Auto 1.84 K/mm3 (0.9-3.2); Lymphocytes Percent Auto 17.8 % (18.3-44.2); Mean Corpuscular Hemoglobin 26.7 pg (26-34); Mean Corpuscular Volume 78.7 fl (80-100); Mean Platelet Volume 11.1 fl (7.4-10.4); Monocytes Absolute Auto 0.8 K/mm3 (0.1-0.6); Monocytes Percent Auto 7.7 % (2.6-8.5); Neutrophils Absolute Auto 7.6 K/mm3 (1.3-6.7); Neutrophils Percent Auto 73.7 % (45.5-73.1); Platelet Count Result 238 k/mm3 (150-375); Red Blood Count 4.79 M/mm3 (4.2-5.4); Red Cell Distribution Width 13.9 % (11.5-14.5); White Blood Count 10.3 K/mm3 (4.5-10.0)
[2021-12-15 10:44] LABS: Alanine Aminotransferase 17 U/L (6-35); Albumin Level 4.4 g/dL (3.5-5.1); Alkaline Phosphatase 61 U/L (38-126); Anion Gap 5 mmol/L (8-16); Aspartate Amino Transferase 25 U/L (14-36); Bilirubin,Total 0.2 mg/dL (0.2-1.3); Blood Urea Nitrogen 13 mg/dL (7-17); Calcium 8.9 mg/dL (8.4-10.2); Carbon Dioxide 27 mmol/L (22-30); Chloride 109 mmol/L (98-107); Estimated CRCL calculation 83 ml/min; Estimated Glomerular Filt Rate > 60; Glucose 97 mg/dL (65-110); Lactic Acid Reflex 0.9 mmol/L (0.7-2.0); Lipase 117 U/L (23-300); Sodium 141 mmol/L (137-145)
[2021-12-15 10:56] LABS: Troponin I < 0.012 ng/mL (0.000-0.034)
[2021-12-15 10:57] LABS: Atypical Lymphocytes Present; Hypochromasia 1+ (NORMAL); Platelet Estimate Adequate (Adequate)
--- NOTE | 2021-12-15 11:25 | PC.NURSE ---
vorb for zofran [address] sanchez d/t nausea/vomiting after Dilaudid
[2021-12-15] MEDS: ONDANSETRON INJ 4 MG/2 ML VIAL (11:26)
== END 2021-12-15 12:31 | disposition home or self-care (01) ==
PROVIDERS: Emergency Provider Emergency Medicine
DX: R07.9 Chest pain, unspecified (principal); R07.89 Other chest pain; K21.9 Gastro-esophageal reflux disease without esophagitis; V89.2XXA Person injured in unspecified motor-vehicle accident, traffic, initial encounter
CPT/HCPCS: 36415; 71046; 80053; 81025; 83605; 83690; 84484; 85025; 93005; 96361; 96374; 96375; 99284; J1170; J2405; J7030

== ENCOUNTER 2022-09-07 11:07 | Observation (INO) | payer BC, SELFPAY ==
[2022-09-07] VITALS (12 sets, daily range): BP systolic 122–157; BP diastolic 83–104; PULSE 67–130; RESP 16–20; TEMP 36.4–36.8; O2SAT 98–100; BMI 26.4
--- NOTE | ~2022-09-07 | XR_ITS ---
Clinical Indication: Chest pain PA and lateral views of the chest: Comparison: 12/15/2021 Findings: The lungs are clear, without evidence of focal consolidation or pleural effusion. Cardiome diastinal silhouette is within normal limits. Bones and soft tissues are unremarkable. Impression: Normal chest. Reviewed, dictated and finalized at [facility]. ERIZER Impression: Normal chest.
--- NOTE | ~2022-09-07 | XR_ITS ---
EXAMINATION: XR abdomen obstructive series DATE: 09/10/2022 12:55 INDICATION: Constipation. Abdomen pain. TECHNIQUE: Supine and upright views of the abdomen. FINDINGS: No prior studies for comparison. The visualized lung parenchyma is normal.. There is a nonobstructive bowel gas pattern. Gas and stool are seen throughout the colon to the level of the rectum. There is no free air. Prominent right nip ple shadow. IMPRESSION: 1. No acute abdominal abnormality. Reviewed, dictated and finalized at location L. H TENDER
--- NOTE | ~2022-09-07 | CT_ITS ---
EXAMINATION: CT abdomen pelvis w con DATE: 09/07/2022 14:48 INDICATION: Right lower quadrant pain TECHNIQUE: Computed tomography (CT) of the abdomen and pelvis was performed with 100 cc Omnipaque 350 intravenous contrast. The dose-length product was 310.18 mGy-cm. Automated exposure control and iterative reconstruction technique were employed. COMPARISON: None. FINDINGS: Lung bases are unremarkable. Heart size is normal. No significant pleural or pericardial ef fusion. Fatty infiltration of the liver. Gallbladder is present. The spleen, pancreas, adrenal glands and lef t kidney are unremarkable. There is hypoperfusion of the right renal cortex superiorly, suspicious fo r pyelonephritis. No hydronephrosis. There is endometrial thickening measuring 1.5 cm. There is a 2.1 cm right adnexal cyst, most likely ovarian. Trace free fluid in the pelvis. Nonobstructive bowel gas pattern. No significant vascular abnormality. Retroaortic left renal vein. No free air. Bladder wall is mildly prominent, likely due to underdistention. The appendix is not positively visualized. Ther e is no pericecal inflammatory change to suggest appendicitis. IMPRESSION: 1. Focal hypoperfusion of the right renal cortex of the upper pole laterally, suspicious for pyelonep hritis. Correlate clinically. 2: Endometrial thickening measuring 1.5 cm. 2: Right adnexal cyst measuring 2.1 cm, likely ovarian. Reviewed, dictated and finalized at location B. CING MANAGER IMPRESSION: 1. Focal hypoperfusion of the right renal cortex of the upper pole laterally, s uspicious for pyelonephritis. Correlate clinically. 2: Endometrial thickening measuring 1.5 cm. 2: Right adnexal cyst measuring 2.1 cm, likely ovarian.
--- NOTE | 2022-09-07 11:21 | ECG_ITS ---
Measurements Intervals [place] Rate: 104 P: 67 ND: 129 QRS: 64 QRSD: 90 T: 49 QT: 309 QTc: 407 Interpretive Statements SINUS TACHYCARDIA POSSIBLE LEFT ATRIAL ENLARGEMENT BORDERLINE ECG COMPARED TO ECG 12/15/2021 09:46:02 HEART RATE HAS INCREASED Electronically Signed On 09-07-2022 14:38:53 JEWELRY MECHANIC by Daniel Teixeira M.D.
--- NOTE | 2022-09-07 11:34 | PC.NURSE ---
Blood not drawn at triage because pt. wants blood and IV at same time; explained I would not be putting in IV and sending her to waiting room with it. Pt. replied that I was rude .
[2022-09-07 12:16] LABS: Basophils Percent Auto 0.3 % (0.2-1.2); Eosinophils Absolute Auto 0.1 K/mm3 (0-0.3); Eosinophils Percent Auto 0.6 % (0-4.4); Hematocrit 37.9 % (37.0-47.0); Hemoglobin 12.4 g/dL (12.0-15.0); Immature Granulocyte Absolute 0.03 K/mm3 (0.00-0.031); Immature Granulocyte Percent A 0.3 % (0-0.5); Lymphocytes Absolute Auto 1.53 K/mm3 (0.9-3.2); Lymphocytes Percent Auto 14.2 % (18.3-44.2); Mean Corpuscular HGB Conc 32.7 g/dl (32-36); Mean Corpuscular Hemoglobin 26.1 pg (26-34); Mean Corpuscular Volume 79.8 fl (80-100); Mean Platelet Volume 10.2 fl (7.4-10.4); Monocytes Absolute Auto 0.9 K/mm3 (0.1-0.6); Monocytes Percent Auto 8.5 % (2.6-8.5); Neutrophils Absolute Auto 8.2 K/mm3 (1.3-6.7); Neutrophils Percent Auto 76.1 % (45.5-73.1); Platelet Count Result 365 k/mm3 (150-375); Red Blood Count 4.75 M/mm3 (4.2-5.4); Red Cell Distribution Width 14.6 % (11.5-14.5); White Blood Count 10.8 K/mm3 (4.5-10.0)
[2022-09-07 12:26] LABS: INR 1.1; Partial Thromboplastin Time 28.9 SECONDS (22.3-36.8); Prothrombin Time 13.3 Seconds (11.1-14.7)
[2022-09-07 12:55] LABS: Alanine Aminotransferase 18 U/L (6-35); Albumin Level 4.5 g/dL (3.5-5.1); Alkaline Phosphatase 72 U/L (38-126); Anion Gap 6 mmol/L (8-16); Aspartate Amino Transferase 28 U/L (14-36); Bilirubin,Total 0.5 mg/dL (0.2-1.3); Blood Urea Nitrogen 7 mg/dL (7-17); Calcium 9.3 mg/dL (8.4-10.2); Carbon Dioxide 26 mmol/L (22-30); Chloride 104 mmol/L (98-107); Estimated CRCL calculation 90 ml/min; Estimated Glomerular Filt Rate > 60; Glucose 93 mg/dL (65-110); Lipase 62 U/L (23-300); Potassium 3.6 mmol/L (3.4-5.0); Sodium 136 mmol/L (137-145)
[2022-09-07 13:15] LABS: Troponin I < 0.012 ng/mL (0.000-0.034)
--- NOTE | 2022-09-07 14:11 | ED.ABDPAIN ---
HPI - Abdominal Pain General Chief Complaint: Abdominal Pain Stated Complaint: right side pain Time Seen by Provider: 09/07/22 13:40 History of Present Illness HPI narrative: Patient is a 32-year-old female presenting with abdominal pain. Patient states that for the last 2 days she has had right-sided abdominal pain that has been worsening. States that she took ibuprofen last night with minimal relief. States that she did have several episodes of vomiting when the pain started. She denies nausea or vomiting today. Reports constipation, no diarrhea. No dysuria or hematuria. LMP was approximately 6 days ago. States that the right-sided abdominal pain also goes into the right side of her chest. No fevers or chills, shortness of breath, cough, leg swelling. No vaginal discharge. Related Data Allergies Allergy/AdvReac Type Severity Reaction Status Date / Time No Known Allergies Allergy Verified 09/07/22 17:09 Review of Systems Review of Systems: All systems reviewed & are unremarkable except as noted in HPI and below PMFSH Past Medical History Medical History Anemia affecting Delivered by delivery following previous delivery 01-22-2015, 39 wks 1. M, 6lbs 7oz, repeat Genital herpes GERD (gastroesophageal reflux disease) Group B streptococcal carriage complicating Sickle cell trait Surgical History Surgical History Delivery by section 05-21-2013, 40 wks 1. F, 7lbs 1oz, Primary Delivery by section 01-22-2015, 39 wks 1. M, 6lbs 7oz, Family History Family History Grandparent No problems noted. Father Heart disease Sibling Diabetes mellitus Mother Liver cirrhosis Social History Social History Smoking status: Current every day smoker Smokeless tobacco user: other Second hand tobacco smoke exposure: No Alcohol intake: current Drinks per week: 10 Substance use: current Substance use type: marijuana Last use: October 2019 Lack of Transportation: No Lack of Food: Never True Current Housing: I Have Housing Concerned About Future Housing: No Difficulty Paying Gas/Electric Bills: No Difficulty Paying for Meds: No Currently Unemployed: YES Education: High School Diploma/GED Difficulty w/ Childcare or Family Care: No Living arrangements: with family Occupation/Education: unemployed Gender identity (if verbalized by the patient): Female Sexual Orientation (if Verbalized by the Patient): Straight or Heterosexual Spiritual care concerns: No Agree to blood products: Yes Exam Narrative: GENERAL: Uncomfortable appearing HEAD: Normocephalic, atraumatic. EYES: PERRLA and EOMI. ENT: Nares clear, no rhinorrhea or epistaxis. Mucous membranes moist. NECK: Supple. CHEST: Clear to auscultation. No respiratory distress. HEART: Regular rate and rhythm. No murmur heard. Normal peripheral pulses. ABDOMEN: + Right lower quadrant tenderness without guarding or rebound. EXTREMITIES: Normal range of motion. No edema. SKIN: Warm, dry, no rash. NEURO: No focal deficits. Alert and oriented x3. PSYCH: Normal mood and affect. Course Vital Signs Vital signs: Vital Signs Temperature 97.7 F 09/07/22 11:16 Pulse Rate 130 H 09/07/22 11:16 Respiratory Rate 18 09/07/22 11:16 Blood Pressure 141/94 H 09/07/22 11:16 Pulse Oximetry 100 09/07/22 11:16 Oxygen Delivery Room Air 09/07/22 11:16 Temperature 98.2 F 09/07/22 16:41 Pulse Rate 79 09/07/22 17:00 Respiratory Rate 16 09/07/22 17:00 Blood Pressure 145/89 H 09/07/22 17:00 Pulse Oximetry 98 09/07/22 17:00 Oxygen Delivery Room Air 09/07/22 16:45 MDM - Abdominal Pain MDM Narrative Medi
[2022-09-07] MEDS: HYDROmorphone HCL INJ (*CRX) 1 MG/ML SYR 0.5 MG IV PUSH (14:28)
[2022-09-07] MEDS: SODIUM CHLORIDE 0.9% IV 1,000 ML 999 ML IV CONT (14:29)
[2022-09-07 15:00] LABS: Appearance Urine Slightly Cloudy (Clear); Bilirubin Urine Negative (Negative); Blood Urine Trace-intact (Negative); Color Urine Yellow (Yellow); Glucose Urine UA Negative (Negative); Ketones Urine Negative (Negative); Leukocyte Esterase Ur 2+ LEU/UL (Negative); Nitrate Urine Negative (Negative); Protein Urine Trace mg/dL (Negative); Specific Grav Ur 1.015 (1.001-1.035); pH Urine 8.5 (5.0-9.0)
[2022-09-07 15:12] LABS: Bacteria Urine Trace /hpf; Mucus Urine Rare /lpf; Squamous Epithelial Cell Urine Rare /hpf (Few); WBC Urine >75 /hpf
[2022-09-07 15:16] LABS: Add Urine Microscopic? YES
[2022-09-07 15:17] LABS: Troponin I < 0.012 ng/mL (0.000-0.034)
--- NOTE | 2022-09-07 15:33 | PM.IMHP ---
H&P: HPI History of Present Illness Date/Time: 09/07/22 15:33 Chief Complaint: flank pain + dysuria Narrative: 32-year-old female with past medical history significant for GERD and sickle cell trait is presenting with right-sided flank pain, nausea and right-sided lower abdominal pain. She states she was recently on vacation to [place] and [place] and ate a lot of shellfish and drank a lot of alcohol. She thinks she is quite dehydrated as well as she did not drink much water. She denies any sick contacts. She states she had nausea and an episode of emesis 2 days ago. Since then, she has had progressively worsening flank and abdominal pain. She denies any dysuria, urinary urgency or frequency. No hematuria. No chest pain or shortness of breath. She has not had a UTI recently or been on antibiotics. She denies any vaginal discharge or suprapubic tenderness. She does admit to having sickle cell trait but has never had a sickle cell crisis. In the ER, she was noted to have abnormal urinalysis as well as focal hypoperfusion of the right renal cortex concerning for pyelonephritis on imaging. She was started on IV fluids and given a dose of Rocephin. Toradol and morphine were given for pain control. Review of Systems Review of Systems: 12 point review of systems was assessed and was negative except as noted in the HPI PMFSH Past Medical History Medical History Anemia affecting Delivered by delivery following previous delivery 01-22-2015, 39 wks 1. M, 6lbs 7oz, repeat Genital herpes GERD (gastroesophageal reflux disease) Group B streptococcal carriage complicating Sickle cell trait Surgical History Surgical History Delivery by section 05-21-2013, 40 wks 1. F, 7lbs 1oz, Primary Delivery by section 01-22-2015, 39 wks 1. M, 6lbs 7oz, Family History Family History Grandparent No problems noted. Father Heart disease Sibling Diabetes mellitus Mother Liver cirrhosis Social History Social History (Reviewed 09/07/22 @ 19:36 by RAUL Lux Smoking status: Current every day smoker Smokeless tobacco user: other Second hand tobacco smoke exposure: No Alcohol intake: current Drinks per week: 10 Substance use: current Substance use type: marijuana Last use: October 2019 Lack of Transportation: No Lack of Food: Never True Current Housing: I Have Housing Concerned About Future Housing: No Difficulty Paying Gas/Electric Bills: No Difficulty Paying for Meds: No Currently Unemployed: YES Education: High School Diploma/GED Difficulty w/ Childcare or Family Care: No Living arrangements: with family Occupation/Education: unemployed Gender identity (if verbalized by the patient): Female Sexual Orientation (if Verbalized by the Patient): Straight or Heterosexual Spiritual care concerns: No Agree to blood products: Yes Meds Home Medications and Allergies Home Medications Medication Instructions Recorded Confirmed Type ibuprofen 600 mg tablet 600 mg PO Q6H #100 tabs 06/03/20 09/07/22 Rx Allergies Allergy/AdvReac Type Severity Reaction Status Date / Time No Known Allergies Allergy Verified 09/07/22 17:09 Vital Signs Vital Signs - 24 hr 09/07/22 11:16 09/07/22 11:28 09/07/22 14:02 Temperature 97.7 F Pulse Rate 130 H 104 H 69 Respiratory Rate 18 18 Blood Pressure 141/94 H 147/102 H Pulse Oximetry 100 100 Oxygen Delivery Room Air 09/07/22 14:32 09/07/22 14:33 09/07/22 15:01 Temperature Pulse Rate 85 77 67 Respiratory Rate 20 18 18 Blood Pressure 157/104 H Pulse Oximetry 100 100 100 Oxygen Delivery Exam Narrative: General: Mild distress secondary to flank
--- NOTE | 2022-09-07 16:30 | PC.NURSE ---
This patient, Tasha Schmitt, was admitted to 3 [facility] Surg Room 312-01. Patient/family oriented to hospital policies and general routines including ID bracelet, bed and alarms, visiting hours, pain management, procedures, bathroom and other care routines, personal items, smoking policy, room service/diet, and visiting hours. Report received from Tonia HUANG Information on how to activate the Rapid Response Team has been discussed. Patient/Family are encouraged to report perceived risks to care and to ask questions if they do not understand what they are told or what they should do.
[2022-09-07] MEDS: SODIUM CHLORIDE 0.9% IV 1,000 ML 125 ML IV CONT (16:42)
[2022-09-07] MEDS: KETOROLAC 30 MG/ML VIAL (*BKC) IV PUSH (16:42)
[2022-09-07 16:44] LABS: Influenza A QL RT-PCR Negative (Negative); Influenza B QL RT-PCR Negative (Negative); SARS-CoV-2 RNA PCR Negative
[2022-09-07] MEDS: ACETAMINOPHEN 325 MG TABLET 650 MG PO (18:37)
[2022-09-07] MEDS: MORPHINE SULFATE (*CRX) 2 MG/ML INJ IV PUSH ×2 (18:55→22:49)
[2022-09-07 19:50] LABS: Troponin I < 0.012 ng/mL (0.000-0.034)
[2022-09-07 22:03] LABS: Pregnancy On Board Control Positive; Urine Pregnancy Test Negative
[2022-09-08] VITALS: BP 137/90; PULSE 84; RESP 20; TEMP 36.5; O2SAT 100
[2022-09-08] MEDS: SODIUM CHLORIDE 0.9% IV 1,000 ML 125 ML IV CONT ×3 (01:38→20:48)
[2022-09-08] MEDS: KETOROLAC 30 MG/ML VIAL (*BKC) IV PUSH ×4 (01:48→23:09)
[2022-09-08 04:00] VITALS: BP 135/99; PULSE 85; RESP 18; TEMP 36.4; O2SAT 100
[2022-09-08 06:30] LABS: Basophils Percent Auto 0.3 % (0.2-1.2); Eosinophils Absolute Auto 0.1 K/mm3 (0-0.3); Eosinophils Percent Auto 1.6 % (0-4.4); Hematocrit 33.1 % (37.0-47.0); Hemoglobin 10.6 g/dL (12.0-15.0); Immature Granulocyte Absolute 0.03 K/mm3 (0.00-0.031); Immature Granulocyte Percent A 0.3 % (0-0.5); Lymphocytes Absolute Auto 1.74 K/mm3 (0.9-3.2); Lymphocytes Percent Auto 19.7 % (18.3-44.2); Mean Corpuscular Hemoglobin 25.7 pg (26-34); Mean Corpuscular Volume 80.3 fl (80-100); Mean Platelet Volume 10.7 fl (7.4-10.4); Monocytes Percent Auto 10.8 % (2.6-8.5); Neutrophils Absolute Auto 5.9 K/mm3 (1.3-6.7); Neutrophils Percent Auto 67.3 % (45.5-73.1); Platelet Count Result 311 k/mm3 (150-375); Red Blood Count 4.12 M/mm3 (4.2-5.4); Red Cell Distribution Width 14.6 % (11.5-14.5); White Blood Count 8.8 K/mm3 (4.5-10.0)
[2022-09-08 06:42] LABS: Alanine Aminotransferase 16 U/L (6-35); Albumin Level 3.3 g/dL (3.5-5.1); Alkaline Phosphatase 54 U/L (38-126); Anion Gap 3 mmol/L (8-16); Aspartate Amino Transferase 21 U/L (14-36); Bilirubin,Total 0.6 mg/dL (0.2-1.3); Blood Urea Nitrogen 4 mg/dL (7-17); Calcium 7.7 mg/dL (8.4-10.2); Carbon Dioxide 21 mmol/L (22-30); Chloride 108 mmol/L (98-107); Estimated CRCL calculation 111 ml/min; Estimated Glomerular Filt Rate > 60; Glucose 96 mg/dL (65-110); Potassium 3.6 mmol/L (3.4-5.0); Sodium 132 mmol/L (137-145)
[2022-09-08] MEDS: MORPHINE SULFATE (*CRX) 2 MG/ML INJ IV PUSH ×2 (06:47→13:52)
[2022-09-08 07:54] VITALS: BP 123/89; PULSE 87; RESP 20; TEMP 36.8; O2SAT 100
--- NOTE | 2022-09-08 11:29 | PM.IMPN ---
Progress Note: A&P Assessment and Plan (1) Pyelonephritis: Code(s): N12 - Tubulo-interstitial nephritis, not specified as acute or chronic Status: Acute Assessment and Plan: IV fluids, Rocephin Toradol and morphine as needed for pain, Tylenol orally available as well Follow-up urine culture test negative (2) GERD (gastroesophageal reflux disease): Code(s): K21.9 - Gastro-esophageal reflux disease without esophagitis Status: Acute Assessment and Plan: Pepcid as needed (3) Sickle cell trait: Code(s): D57.3 - Sickle-cell trait Status: Acute Assessment and Plan: Stable, monitor (4) Fatty liver: Code(s): K76.0 - Fatty (change of) liver, not elsewhere classified Status: Acute Assessment and Plan: Noted on CT scan, appreciate GI consultation, follow-up testing for autoimmune hepatitis (5) Right upper quadrant pain: Code(s): R10.11 - Right upper quadrant pain Status: Acute Assessment and Plan: Unsure of etiology, could be combination of constipation, pyelonephritis, fatty liver disease, follow-up pain after enema given and bowel movement and reassess Plan DVT prophylaxis with SCDs GI prophylaxis with Pepcid Code status full code Subjective Date/time seen: 09/08/22 11:29 Interval history: No overnight events noted. No chest pain or shortness of breath. No nausea, vomiting or diarrhea. No fevers or chills. Patient still with significant abdominal pain. She thinks it is from constipation. Review of Systems Review of Systems: 12 point review of systems was assessed and was negative except as noted in the HPI Exam Narrative: General: Significant distress secondary to abdominal pain, alert and oriented per baseline HEENT: Atraumatic, normocephalic, mucous membranes moist CV: Regular rate and rhythm, S1, S2 Lungs: Clear to auscultation bilaterally, no rales or crackles noted, no wheezes, good air entry Abdomen: Distended abdomen, exquisitely tender to palpation diffusely, especially in the right upper and lower quadrant, no rebounding, no guarding Extremities: Normal to inspection Skin: No rashes noted, no lesions or wounds seen Psych: Euthymic, normal affect Objective Data Vital Signs Vital Signs: Vital Signs - 24 hr 09/07/22 14:02 09/07/22 14:32 09/07/22 14:33 Temperature Pulse Rate 69 85 77 Respiratory Rate 18 20 18 Blood Pressure 147/102 H 157/104 H Pulse Oximetry 100 100 100 Oxygen Delivery 09/07/22 15:01 09/07/22 15:55 09/07/22 16:15 Temperature Pulse Rate 67 84 75 Respiratory Rate 18 18 16 Blood Pressure 124/83 Pulse Oximetry 100 100 99 Oxygen Delivery 09/07/22 16:22 09/07/22 16:41 09/07/22 16:45 Temperature 98.2 F Pulse Rate 84 73 Respiratory Rate 18 18 Blood Pressure 122/83 145/98 H Pulse Oximetry 100 100 Oxygen Delivery Room Air 09/07/22 17:00 09/07/22 20:00 09/07/22 20:00 Temperature 97.6 F Pulse Rate 79 79 71 Respiratory Rate 16 16 18 Blood Pressure 145/89 H 130/88 Pulse Oximetry 98 98 100 Oxygen Delivery Room Air 09/08/22 00:00 09/08/22 04:00 09/08/22 07:54 Temperature 97.7 F 97.6 F 98.2 F Pulse Rate 84 85 87 Respiratory Rate 20 18 20 Blood Pressure 137/90 135/99 H 123/89 Pulse Oximetry 100 100 100 Oxygen Delivery 09/08/22 08:00 Temperature Pulse Rate Respiratory Rate Blood Pressure Pulse Oximetry Oxygen Delivery Room Air Intake/Output Intake/Output: Intake & Output 09/05/22 09/06/22 09/07/22 09/08/22 23:59 23:59 23:59 23:59 Intake Total 1700 2250 Output Total 950 Balance 1700 1300 Meds/Results Medications: Active Medications Generic Name Dose Route Start Last Admin Trade Name Freq PRN Reason Stop Dose Admin Acetaminophen 650 mg 09/07/22 15:38 09/07/22 18:37 Acetaminophen 325 Mg Tablet PO 650 mg Q4H PRN Administration Mild Pain (
[2022-09-08 11:47] VITALS: BP 127/85; PULSE 90; RESP 20; TEMP 36.4; O2SAT 100
[2022-09-08 12:48] VITALS: BMI 26.4
[2022-09-08 15:46] VITALS: BP 123/90; PULSE 85; RESP 20; TEMP 36.5; O2SAT 100
--- NOTE | 2022-09-08 16:27 | WPDGICN ---
Assessment and Plan Assessment and plan (1) Acute right flank pain: Code(s): R10.9 - Unspecified abdominal pain Status: Acute Assessment and Plan: She is felt to have pyelonephritis. She has been started on antibiotics. (2) Pyelonephritis: Code(s): N12 - Tubulo-interstitial nephritis, not specified as acute or chronic Status: Acute Assessment and Plan: Receiving ceftriaxone 1 g Q 24 hours (3) Right upper quadrant pain: Code(s): R10.11 - Right upper quadrant pain Status: Acute Assessment and Plan: She grabs her right upper quadrant with her fingers stating that she hurts there although is not tender on palpation. The discomfort she describes as being deep. There is no tenderness of the liver on palpation (4) Fatty liver: Code(s): K76.0 - Fatty (change of) liver, not elsewhere classified Status: Acute Assessment and Plan: This was seen on CT scan. She has never had liver disease before. Her liver enzymes are okay. She was drinking heavily recently. I am concerned however that her mother develop cirrhosis at age 44 and she was neither diabetic nor alcoholic. I will check for possible autoimmune liver disease. (5) Sickle cell trait: Code(s): D57.3 - Sickle-cell trait Status: Acute GI Consult Note Consult date/time: 09/08/22 16:27 HPI: Tasha Schmitt is a 32 year old female admitted yesterday with severe pain in her right flank, right upper quadrant and pain radiating down the back. He has had no vomiting or nausea. She states that she has not had a bowel movement for couple days and feels that she would feel much better if she could only have a bowel movement. She has requested an enema that has not yet been administered. She has never had anything quite like this before but it is a bit reminiscent of the pain she had when she was in labor. She has no history of liver or gallbladder or pancreatic problems. She has never had ulcer. Her appetite has been good until the last day or so. Last week she was in [place] celebrating a siblings birthday. She admits that she was drinking and eating more than she should. She was at a casino where they were providing free alcohol and she had quite a bit. CT scan findings are: Fatty infiltration of the liver. Gallbladder is present. The spleen, pancreas, adrenal glands and left kidney are unremarkable. There is hypoperfusion of the right renal cortex superiorly, suspicious for pyelonephritis. No hydronephrosis. There is endometrial thickening measuring 1.5 cm. There is a 2.1 cm right adnexal cyst, most likely ovarian. Trace free fluid in the pelvis. Nonobstructive bowel gas pattern. No significant vascular abnormality. Retroaortic left renal vein. No free air. Bladder wall is mildly prominent, likely due to underdistention. The appendix is not positively visualized.? There is no pericecal inflammatory change to suggest appendicitis. Review of Systems Review of Systems: All systems reviewed & are unremarkable except as noted in HPI and below PMFSH Past Medical History Medical History Anemia affecting Delivered by delivery following previous delivery 01-22-2015, 39 wks 1. M, 6lbs 7oz, repeat Genital herpes GERD (gastroesophageal reflux disease) Group B streptococcal carriage complicating Sickle cell trait Surgical History Surgical History Delivery by section 05-21-2013, 40 wks 1. F, 7lbs 1oz, Primary Delivery by section 01-22-2015, 39 wks 1. M, 6lbs 7oz, Family History Family History Grandparent No problems noted. Father Heart disease Sibling Diabetes mellitus Mother Liver cirrhosis Social History Social History (Reviewed 0
[2022-09-08] MEDS: SENNA/DOCUSATE SODIUM TABLET 2 TAB PO (17:46)
[2022-09-08 17:50] LABS: CRP 5.4 mg/dL (<1.0)
[2022-09-08 20:00] VITALS: BP 131/78; PULSE 74; RESP 13; TEMP 36.3; O2SAT 100
[2022-09-08] MEDS: polyethylene glycoL 3350 17 GM POWD.PACK PO (20:48)
[2022-09-09] VITALS: BP 134/92; PULSE 75; RESP 13; TEMP 36.7; O2SAT 100
[2022-09-09 04:00] VITALS: BP 120/89; PULSE 90; RESP 14; TEMP 36.1; O2SAT 100
[2022-09-09] MEDS: IBUPROFEN 400 MG TABLET PO ×2 (04:28→12:00)
[2022-09-09] MEDS: SODIUM CHLORIDE 0.9% IV 1,000 ML 125 ML IV CONT ×2 (04:28→12:00)
[2022-09-09 06:09] LABS: Basophils Percent Auto 0.3 % (0.2-1.2); Eosinophils Absolute Auto 0.2 K/mm3 (0-0.3); Eosinophils Percent Auto 2.9 % (0-4.4); Hematocrit 34.2 % (37.0-47.0); Hemoglobin 11.1 g/dL (12.0-15.0); Immature Granulocyte Absolute 0.01 K/mm3 (0.00-0.031); Immature Granulocyte Percent A 0.2 % (0-0.5); Lymphocytes Absolute Auto 1.77 K/mm3 (0.9-3.2); Lymphocytes Percent Auto 26.9 % (18.3-44.2); Mean Corpuscular HGB Conc 32.5 g/dl (32-36); Mean Corpuscular Hemoglobin 26.3 pg (26-34); Mean Platelet Volume 10.8 fl (7.4-10.4); Monocytes Absolute Auto 0.8 K/mm3 (0.1-0.6); Monocytes Percent Auto 12.6 % (2.6-8.5); Neutrophils Absolute Auto 3.8 K/mm3 (1.3-6.7); Neutrophils Percent Auto 57.1 % (45.5-73.1); Platelet Count Result 328 k/mm3 (150-375); Red Blood Count 4.22 M/mm3 (4.2-5.4); Red Cell Distribution Width 14.6 % (11.5-14.5); White Blood Count 6.6 K/mm3 (4.5-10.0)
[2022-09-09 06:17] LABS: Alanine Aminotransferase 18 U/L (6-35); Albumin Level 3.3 g/dL (3.5-5.1); Alkaline Phosphatase 66 U/L (38-126); Anion Gap 6 mmol/L (8-16); Aspartate Amino Transferase 22 U/L (14-36); Bilirubin,Total 0.4 mg/dL (0.2-1.3); Blood Urea Nitrogen 3 mg/dL (7-17); Calcium 8.1 mg/dL (8.4-10.2); Carbon Dioxide 23 mmol/L (22-30); Chloride 108 mmol/L (98-107); Estimated CRCL calculation 95 ml/min; Estimated Glomerular Filt Rate > 60; Glucose 88 mg/dL (65-110); Potassium 3.8 mmol/L (3.4-5.0); Sodium 137 mmol/L (137-145)
[2022-09-09] MEDS: ACETAMINOPHEN 325 MG TABLET 650 MG PO (07:56)
[2022-09-09 08:00] VITALS: BP 139/94; PULSE 89; RESP 16; TEMP 36.5; O2SAT 100
[2022-09-09] MEDS: SENNA/DOCUSATE SODIUM TABLET 2 TAB PO ×2 (08:42→17:18)
[2022-09-09 11:46] VITALS: BP 138/97; PULSE 71; RESP 14; TEMP 36.2; O2SAT 100
--- NOTE | 2022-09-09 12:43 | PM.IMPN ---
Progress Note: A&P Assessment and Plan (1) Pyelonephritis: Code(s): N12 - Tubulo-interstitial nephritis, not specified as acute or chronic Status: Acute Assessment and Plan: UA noted. UCx growing GNB. CT scan showing focal hypoperfusion of the right renal cortex suspicious for pyelonephritis. UPT negative. Continue Rocephin given that her symptoms have improved. Will stop IV fluids. Follow-up on culture results. Probably home tomorrow with oral antibiotics. (2) Migraine: Code(s): G43.909 - Migraine, unspecified, not intractable, without status migrainosus Status: Acute Assessment and Plan: Patient with complaints of posterior headache which is not uncommon for her. She has pain medciations available. Follow to ensure improvement (3) Fatty liver: Code(s): K76.0 - Fatty (change of) liver, not elsewhere classified Status: Acute Assessment and Plan: Noted on CT scan, appreciate GI consultation, follow-up testing for autoimmune hepatitis underway. (4) Right upper quadrant pain: Code(s): R10.11 - Right upper quadrant pain Status: Acute Assessment and Plan: Unsure of etiology but pain has resolved. Could be combination of constipation, pyelonephritis, and/or fatty liver disease. No BMs listed. follow. (5) Sickle cell trait: Code(s): D57.3 - Sickle-cell trait Status: Acute Assessment and Plan: Stable, monitor (6) GERD (gastroesophageal reflux disease): Code(s): K21.9 - Gastro-esophageal reflux disease without esophagitis Status: Acute Assessment and Plan: Pepcid as needed Plan DVT prophylaxis with SCDs Code status full code Subjective Date/time seen: 09/09/22 12:43 Interval history: 32yo female with sickle cell trait here for dysuria and flank pain. Assuming care. Chart reviewed. Patient is complain of a headache this morning. She has a history of migraines. She normally takes ibuprofen at home with benefit.. She also feels nauseous. She denies any abdominal pain or back pain at this time. Exam Narrative: AF 138/97 71 14 100% ra Gen - NARD Chest - CTA bilaterally, nml RR CV - RRR S1/S2 Abd - Soft, NT/ND, Positive BS back - no CVA tenderness Ext - No pedal edema Psych - Nml mood and affect. Skin - Warm and dry Objective Data Vital Signs Vital Signs: Vital Signs - 24 hr 09/08/22 15:46 09/08/22 20:00 09/09/22 00:00 Temperature 97.7 F 97.4 F L 98.0 F Pulse Rate 85 74 75 Respiratory Rate 20 13 13 Blood Pressure 123/90 131/78 134/92 H Pulse Oximetry 100 100 100 Oxygen Delivery 09/08/22 20:00 09/09/22 04:00 09/09/22 08:00 Temperature 96.9 F L 97.7 F Pulse Rate 90 89 Respiratory Rate 14 16 Blood Pressure 120/89 139/94 H Pulse Oximetry 100 100 Oxygen Delivery Room Air 09/09/22 11:46 Temperature 97.1 F L Pulse Rate 71 Respiratory Rate 14 Blood Pressure 138/97 H Pulse Oximetry 100 Oxygen Delivery Intake/Output Intake/Output: Intake & Output 09/06/22 09/07/22 09/08/22 09/09/22 23:59 23:59 23:59 23:59 Intake Total 1700 3536 2868 Output Total 3050 1100 Balance 3893 710 1236 Meds/Results Medications: Active Medications Generic Name Dose Route Start Last Admin Trade Name Freq PRN Reason Stop Dose Admin Acetaminophen 650 mg 09/07/22 15:38 09/09/22 07:56 Acetaminophen 325 Mg Tablet PO 650 mg Q4H PRN Administration Mild Pain (1-3) or Fever Ceftriaxone Sodium/Dextrose 1 gm in 50 mls @ 100 mls/hr 09/08/22 15:00 09/08/22 15:39 Rocephin 1 Gm/D5w 50 Ml IVPB Infused Q24H MARSHA Infusion Sodium Chloride 1,000 mls @ 125 mls/hr 09/07/22 15:40 09/09/22 12:00 Normal Saline Iv IV CONT 125 mls/hr .Q8H MARSHA Administration Ibuprofen 400 mg 09/07/22 15:38 09/09/22 12:00 Ibuprofen 400 Mg Tablet PO 400 mg Q6H PRN Administration Mild Pain (1-3) or Fever Ketorolac Tromethamine 3
[2022-09-09 16:00] VITALS: BP 142/93; PULSE 103; RESP 24; TEMP 36.6; O2SAT 100
[2022-09-09] MEDS: polyethylene glycoL 3350 17 GM POWD.PACK PO (20:44)
[2022-09-09] MEDS: ONDANSETRON INJ 4 MG/2 ML VIAL IV PUSH (21:26)
[2022-09-09 21:33] VITALS: BP 150/94; PULSE 74; RESP 16; TEMP 36.2; O2SAT 100
[2022-09-10] MEDS: MELATONIN 5 MG TABLET PO (00:10)
[2022-09-10 00:43] VITALS: BP 142/79; PULSE 83; RESP 16; TEMP 36.3; O2SAT 100
[2022-09-10 04:00] VITALS: BP 125/76; PULSE 97; RESP 16; TEMP 36.1; O2SAT 100
[2022-09-10 08:00] VITALS: BP 138/85; PULSE 62; RESP 14; TEMP 36.6; O2SAT 100
[2022-09-10] MEDS: SENNA/DOCUSATE SODIUM TABLET 2 TAB PO (09:30)
[2022-09-10] MEDS: MORPHINE SULFATE (*CRX) 2 MG/ML INJ IV PUSH (11:47)
[2022-09-10 12:00] VITALS: BP 143/103; PULSE 68; RESP 14; TEMP 36.5; O2SAT 100
[2022-09-10 13:21] VITALS: BP 138/100
[2022-09-10 16:00] VITALS: BP 140/97; PULSE 73; RESP 14; TEMP 35.9; O2SAT 100
--- NOTE | 2022-09-10 16:03 | PM.DS ---
DS: Admitting Diagnosis Discharge Date 09/10/22 Admitting Diagnosis Flank pain DS: Discharge Diagnosis Discharge Diagnosis (1) Pyelonephritis: Code(s): N12 - Tubulo-interstitial nephritis, not specified as acute or chronic Status: Acute (2) Migraine: Code(s): G43.909 - Migraine, unspecified, not intractable, without status migrainosus Status: Acute (3) Fatty liver: Code(s): K76.0 - Fatty (change of) liver, not elsewhere classified Status: Acute (4) Right upper quadrant pain: Code(s): R10.11 - Right upper quadrant pain Status: Acute (5) Sickle cell trait: Code(s): D57.3 - Sickle-cell trait Status: Acute (6) GERD (gastroesophageal reflux disease): Code(s): K21.9 - Gastro-esophageal reflux disease without esophagitis Status: Acute DS: Summary Hospital Course Reason for hospitalization: 32yo female with sickle cell trait here for dysuria and flank pain. Please see H&P for details. Hospital Course: CXR was clear. UA concerning for UTI. CT scan showing focal hypoperfusion of the right renal cortex suspicious for pyelonephritis. UPT negative.? Rocephin started. UCx growing relatively downey-sensitive EColi. Her symptoms have improved.? CT scan also showing fatty liver. GI consultation. Concern for autoimmune hepatitis given her age and family history. Testing ordered. She had right upper quadrant pain that improved. She does feel constipated. KUB does not show obstruction but shows gas and stool t/o the colon. Miralax started. She feels much better. She overall did well and was able to be discharged home on 09/10/22. Status at Discharge Cognitive/behavioral status at discharge: Stable Time Spent with Patient Time attestation: Total time spent providing and/or coordinating discharge services:34 minutes Time spent: Greater than 30 minutes Exam Narrative: AF 138/100 68 14 100% ra Gen - NARD Chest - CTA bilaterally, nml RR CV - RRR S1/S2 Abd - Soft, NT/ND, Positive BS Back - no CVA tenderness Ext - No pedal edema Psych - Nml mood and affect. Skin - Warm and dry Discharge Plan Discharge Attending physician on discharge: Russell Sparrow Consulting providers: Amauri Jacinto Discharging Clinician: Russell Sparrow Anticipated Discharge Date/Time: 09/10/22 16:10 Patient Disposition: Home, Self-Care Activity: as tolerated Diet: regular and high fiber Discharge Instructions: Please complete your antibiotic course even if you are starting to feel well. Contact your doctor or call 911 and come to the Emergency Room if you have increasing abdominal pain, fever or other worrisome symptoms. Avoid NSAIDs (ibuprofen, naproxen, Aleve). Tylenol is safe to take. You are going home with Senokot and Miralax. Continue both until bowels return to normal then you can just use the Senokot only. You can resume Miralax as needed for recurrent constipation symptoms. Follow-up with your primary care provider in 1-2 weeks. Please call for appointment. Follow-up with the [facility] in 4-6 weeks. Please call for an appointment. Thank you for using [facility] for your health care needs. Patient Instructions: Antibiotic Form Stand Alone Forms: General Discharge Information Follow-up/Referrals: Amauri Jacinto MD [Physician] - Call for Appointment PHYSICIAN NOT ON STAFF,NONSTAFF [Primary Care Provider] - Call for Appointment Discharge Medications: New polyethylene glycol 3350 [Miralax] 17 gram Powder In Packet 17 g PO QHS Qty: 30 1RF sennosides-docusate sodium [Senokot-S] 8.6-50 mg Tablet 1 tab-cap PO HS Qty: 30 0RF ciprofloxacin HCl [Cipro] 500 mg tablet 500 mg PO Q12H Qty: 6 0RF Discontinued ibuprofen 600 mg Tablet 600 mg PO Q6H Qty: 100 2RF Date of admission: 09/07/22 15:42 Primary Care Provider: PHYSICIAN NOT ON STAFF,NONSTAFF Admitting Provider: Lulu Goodrich
[2022-09-10 21:37] LABS: LKM 1 Antibody <=20.0 U (<=20.0)
== END 2022-09-10 16:50 | disposition home or self-care (01) ==
LOC: ANHED 16:36 → ANH3MEDSUR 09-09 14:23
PROVIDERS: Internal Medicine Gastroenterology; Preventive Medicine Aerospace Medicine; Admitting Provider Student in an Organized Health Care Education/Training Program; Emergency Provider Emergency Medicine; Visit Provider Internal Medicine
DX: N12 Tubulo-interstitial nephritis, not specified as acute or chronic (principal); G43.909 Migraine, unspecified, not intractable, without status migrainosus; K76.0 Fatty (change of) liver, not elsewhere classified; D57.3 Sickle-cell trait; K21.9 Gastro-esophageal reflux disease without esophagitis; Z20.822 Contact with and (suspected) exposure to COVID-19; K59.00 Constipation, unspecified; F10.90 Alcohol use, unspecified, uncomplicated; R00.1 Bradycardia, unspecified; D72.829 Elevated white blood cell count, unspecified; N83.201 Unspecified ovarian cyst, right side; F12.90 Cannabis use, unspecified, uncomplicated; F17.210 Nicotine dependence, cigarettes, uncomplicated; Z79.1 Long term (current) use of non-steroidal anti-inflammatories (NSAID)
CPT/HCPCS: 36415; 71046; 74019; 74177; 80053; 81001; 81025; 83690; 84484; 85025; 85610; 85730; 86140; 86376; 87077; 87086; 87186; 87636; 93005; 96361; 96365; 96367; 96375; 96376; 99285; A9270; G0378; G0379; J0131; J0696; J1170; J1885; J2270; J2405; J7030; Q9967

== ENCOUNTER 2023-12-04 11:50 | Emergency (ER) | payer BC, SELFPAY ==
[2023-12-04 12:06] VITALS: BP 154/102; PULSE 70; RESP 18; TEMP 36.6; O2SAT 100
[2023-12-04 13:09] VITALS: BP 174/100; PULSE 70; RESP 15; O2SAT 100
[2023-12-04 13:47] VITALS: BP 131/88; PULSE 96; RESP 15; O2SAT 100
[2023-12-04 13:47] LABS: Appearance Urine Clear (Clear); Bacteria Urine None Seen /hpf; Bilirubin Urine Negative (Negative); Blood Urine 3+ (Negative); Color Urine Yellow (Yellow); Glucose Urine UA Negative (Negative); Ketones Urine Negative (Negative); Leukocyte Esterase Ur Negative LEU/UL (Negative); Nitrate Urine Negative (Negative); Non Pathogenic Casts 0-2; Protein Urine Negative (Negative); RBC Urine 0-2 /hpf (0-2); Specific Grav Ur 1.009 (1.001-1.035); Squamous Epithelial Cell Urine None Seen /hpf (Few); WBC Urine 0-5 /hpf (0-3)
[2023-12-04 13:48] LABS: Add Urine Microscopic? YES
[2023-12-04 14:23] LABS: Basophils Percent Auto 0.4 % (0.2-1.2); Eosinophils Absolute Auto 0.1 K/mm3 (0-0.3); Eosinophils Percent Auto 2.7 % (0-4.4); Hematocrit 35.2 % (37.0-47.0); Hemoglobin 11.5 g/dL (12.0-15.0); Immature Granulocyte Absolute 0.02 K/mm3 (0.00-0.031); Immature Granulocyte Percent A 0.4 % (0-0.5); Lymphocytes Absolute Auto 1.64 K/mm3 (0.9-3.2); Lymphocytes Percent Auto 34.2 % (18.3-44.2); Mean Corpuscular HGB Conc 32.7 g/dl (32-36); Mean Corpuscular Hemoglobin 26.9 pg (26-34); Mean Corpuscular Volume 82.4 fl (80-100); Monocytes Absolute Auto 0.5 K/mm3 (0.1-0.6); Monocytes Percent Auto 11.3 % (2.6-8.5); Neutrophils Absolute Auto 2.5 K/mm3 (1.3-6.7); Platelet Count Result 328 k/mm3 (150-375); Red Blood Count 4.27 M/mm3 (4.2-5.4); Red Cell Distribution Width 14.3 % (11.5-14.5); White Blood Count 4.8 K/mm3 (4.5-10.0)
[2023-12-04 14:31] LABS: Alanine Aminotransferase 14 U/L (6-35); Albumin Level 3.5 g/dL (3.5-5.1); Alkaline Phosphatase 85 U/L (38-126); Anion Gap 6 mmol/L (4-12); Aspartate Amino Transferase 21 U/L (14-36); Bilirubin,Total 0.4 mg/dL (0.2-1.3); Blood Urea Nitrogen 7 mg/dL (7-17); Calcium 8.6 mg/dL (8.4-10.2); Carbon Dioxide 23 mmol/L (22-30); Chloride 108 mmol/L (98-107); Estimated CRCL calculation 109 ml/min; Estimated Glomerular Filt Rate > 60; Glucose 95 mg/dL (65-110); Lactate Dehydrogenase 210 U/L (120-246); Potassium 4.1 mmol/L (3.4-5.0); Sodium 137 mmol/L (137-145)
[2023-12-04 14:34] LABS: Prothrombin Time 13.1 Seconds (11.1-14.7)
[2023-12-04 14:35] LABS: Partial Thromboplastin Time 29.9 Seconds (22.3-36.8)
[2023-12-04 14:36] LABS: Fibrinogen 394 mg/dl (215-510)
--- NOTE | 2023-12-04 15:32 | ED.RECABL ---
HPI - Recheck/Abnormal Lab/Rx General Chief Complaint: Recheck/Abnormal Lab/Rx Stated Complaint: HTN Time Seen by Provider: 12/04/23 13:56 Source: patient Mode of arrival: ambulatory Limitations: no limitations History of Present Illness HPI narrative: Patient is a 33-year-old female who presents the ED of elevated blood pressures. Patient reports she is 1 week status post . She reports she had issues with her blood pressure being elevated during the , but was not placed on medication for this. Never developed preeclampsia. She has had intermittent elevated blood pressures since her delivery. She denies any other issues with the or delivery. States her blood pressures today have been elevated into the 150s over 100s consistently. She does report intermittent dizziness, intermittent headaches. Denies symptoms currently. Denies upper abdominal pain, swelling, vision changes, nausea, vomiting, chest pain, shortness of breath. Patient was seen at [facility] for her , was involved with several OBGYNs. Related Data Allergies Allergy/AdvReac Type Severity Reaction Status Date / Time No Known Allergies Allergy Verified 12/04/23 12:09 Review of Systems Review of Systems: CONSTITUTIONAL: Denies fever, chills, or sweats. ENT: Denies vision changes. CARDIOVASCULAR: Denies chest pain. RESPIRATORY: Denies dyspnea. GASTROINTESTINAL: Denies abdominal pain, nausea, vomiting. NEUROLOGIC: See HPI. All systems reviewed & are unremarkable except as noted in HPI and below PMFSH Past Medical History Medical History Anemia affecting Delivered by delivery following previous delivery 01-22-2015, 39 wks 1. M, 6lbs 7oz, repeat Genital herpes GERD (gastroesophageal reflux disease) Group B streptococcal carriage complicating Migraine Sickle cell trait Surgical History Surgical History Delivery by section 05-21-2013, 40 wks 1. F, 7lbs 1oz, Primary Delivery by section 01-22-2015, 39 wks 1. M, 6lbs 7oz, Family History Family History Grandparent No problems noted. Father Heart disease Sibling Diabetes mellitus Mother Liver cirrhosis Social History Social History Smoking status: Current every day smoker Smokeless tobacco user: other Second hand tobacco smoke exposure: No Alcohol intake: current Drinks per week: 10 Substance use: current Substance use type: marijuana Last use: October 2019 Lack of Transportation: No Lack of Food: Never True Current Housing: I Have Housing Concerned About Future Housing: No Difficulty Paying Gas/Electric Bills: No Difficulty Paying for Meds: No Currently Unemployed: YES Education: High School Diploma/GED Difficulty w/ Childcare or Family Care: No Living arrangements: with family Occupation/Education: unemployed Gender identity (if verbalized by the patient): Female Sexual Orientation (if Verbalized by the Patient): Straight or Heterosexual Spiritual care concerns: No Agree to blood products: Yes Exam Narrative: GENERAL: Well appearing, well-nourished, non-toxic, in no acute distress. HEAD: Normocephalic, atraumatic. EYES: PERRL/EOMI, conjunctiva clear. No nystagmus. RESPIRATORY: Airway patent, respirations nonlabored. Clear to auscultation bilaterally, no rales, rhonchi, wheezing. CARDIOVASCULAR: Regular rate and rhythm without murmurs, rubs, or gallops. ABDOMINAL: Soft, no significant tenderness, nondistended. Normoactive BS. MUSCULOSKELETAL: Moves all extremities. No gross deformities. SKIN: Warm, dry, normal color. NEURO: A&O X3. Speech clear. Cranial nerves II-XI
[2023-12-04 15:52] VITALS: BP 138/96; PULSE 65; RESP 20; O2SAT 98
[2023-12-04] MEDS: NIFEdipine 30 MG TAB.ER.24 PO (16:08)
[2023-12-04 16:09] VITALS: BP 147/99; PULSE 79; RESP 15; O2SAT 97
== END 2023-12-04 16:10 | disposition home or self-care (01) ==
PROVIDERS: Emergency Medicine; Emergency Provider Physician Assistant
DX: R03.0 Elevated blood-pressure reading, without diagnosis of hypertension (principal); K21.9 Gastro-esophageal reflux disease without esophagitis
CPT/HCPCS: 36415; 80053; 81001; 83615; 85025; 85384; 85610; 85730; 99283; A9270

== ENCOUNTER 2025-03-15 05:02 | Emergency (ER) | payer BC, SELFPAY ==
--- NOTE | ~2025-03-15 | XR_ITS ---
EXAMINATION: XR ankle RT min 3V DATE: 03/15/2025 05:48 INDICATION: Bimalleolar pain at the right ankle TECHNIQUE: Anteroposterior, oblique, mortise, and lateral views of the right ankle were obtained. COMPARISON: None. FINDINGS: Alignment is normal. No fracture. Joint spaces are well maintained. No ankle joint effusion. The soft tissues are unremarkable. IMPRESSION: 1. Negative right ankle radiographs. Reviewed, dictated and finalized at location A.
[2025-03-15 05:14] VITALS: BP 131/89; PULSE 109; RESP 16; TEMP 36.1; O2SAT 100
--- NOTE | 2025-03-15 05:19 | ED.LOWEXIN ---
HPI - Extremity Injury (Lower) General Chief Complaint: Extremity Injury, Lower Stated Complaint: ankle pain Time Seen by Provider: 03/15/25 05:05 History of Present Illness HPI Narrative: 34-year-old female approximately 30 weeks gestation presents to the ED for ankle pain. Patient states that she was walking in her yd yesterday when she stepped in a hole and twisted her right ankle. She was able ambulate after that. She woke up this morning and tried to walk on it but was having significant here to come to the ED. has been otherwise uncomplicated. Related Data Allergies Allergy/AdvReac Type Severity Reaction Status Date / Time No Known Allergies Allergy Verified 12/04/23 12:09 Review of Systems Review of Systems: Gen.: Denies fevers or chills Eyes: Denies eye pain or visual change ENT: Denies congestion Respiratory: Denies shortness of breath or cough CV: Denies chest pain or palpitations GI: Denies abdominal pain nausea, emesis or diarrhea denies burning, urgency, frequency or hematuria Musculoskeletal: Denies back pain or muscle pain Neuro: Denies numbness, tingling, weakness or focal weakness Skin: Denies rash Except as documented, all other systems reviewed and negative PMF Past Medical History Medical History Migraine Delivered by delivery following previous delivery 01-22-2015, 39 wks 1. M, 6lbs 7oz, repeat GERD (gastroesophageal reflux disease) Anemia affecting Sickle cell trait Group B streptococcal carriage complicating Genital herpes Surgical History Surgical History Delivery by section 01-22-2015, 39 wks 1. M, 6lbs 7oz, Delivery by section 05-21-2013, 40 wks 1. F, 7lbs 1oz, Primary Family History Family History Grandparent No problems noted. Father Heart disease Sibling Diabetes mellitus Mother Liver cirrhosis Social History Social History Smoking status: Current every day smoker Smokeless tobacco user: other Second hand tobacco smoke exposure: No Alcohol intake: current Drinks per week: 10 Substance use: current Substance use type: marijuana Last use: October 2019 Lack of Transportation: No Lack of Food: Never True Current Housing: I Have Housing Concerned About Future Housing: No Difficulty Paying Gas/Electric Bills: No Difficulty Paying for Meds: No Currently Unemployed: YES Education: High School Diploma/GED Difficulty w/ Childcare or Family Care: No Living arrangements: with family Occupation/Education: unemployed Gender identity (if verbalized by the patient): Female Sexual Orientation (if Verbalized by the Patient): Straight or Heterosexual Spiritual care concerns: No Agree to blood products: Yes Exam Narrative: APPEARANCE: No acute distress, nontoxic, resting in bed HEENT: Normocephalic, atraumatic, OMM RESPIRATORY: No respiratory distress CARDIOVASCULAR: Appears well perfused ABDOMINAL: Nondistended MUSCULOSKELETAL: Tenderness palpation to the posterior aspect of the bilateral malleoli of the right ankle, no tenderness over the 5th metatarsal. NEURO: Awake and alert. SKIN:: Warm, dry. No rashes lesions or abrasions PSYCHIATRIC: Normal affect/mood, Course Vital Signs Vital signs: Vital Signs Temperature 97 F L 03/15/25 05:14 Pulse Rate 109 H 03/15/25 05:14 Respiratory Rate 16 03/15/25 05:14 Blood Pressure 131/89 03/15/25 05:14 Pulse Oximetry 100 03/15/25 05:14 Oxygen Delivery Room Air 03/15/25 05:14 Temperature 97 F L 03/15/25 05:14 Pulse Rate 88 03/15/25 06:00 Respiratory Rate 16 03/15/25 06:00 Blood Pressure 133/79 03/15/25 06:00 Pulse Oximetry 100 03/15/25 06:00 Oxygen Delivery Room Air 03/15/25 05:14 MDM - Extremity Injury (Lower) MDM Narrative Medical decision making narrative: 34-year-old female that presented to the ED for right ankle pain twisting ankle yesterday. Initial evaluation, additional medications, afebrile, hemodynamically stable. She did have tenderness over the thigh malleoli the right ankle. X-ray right ankle showed no evidence of fractures on my read. The patient was placed in Babatunde wrap and was offered crutches but she politely declined. patient was educated Tylenol use as well as rice therapy. Advised follow-up with her PCP next week for evaluation. Patient agreeable to this plan. Given strict return precautions. Differential Diagnosis Differential diagnosis: Likely ankle sprain and strain and ankle fracture Medical Records Attestation: I reviewed the patient's medical records. Discharge Plan Discharge Clinical Impression: Ankle sprain and strain Patient Disposition: Home Condition: Stable Instructions: Antibiotic Form, Ankle Sprain (ED) Additional Instructions: Apply ice to ankle 50 minutes on 15 minutes off for the swelling. He may take Tylenol for the pain. Follow up with the PCP in the next week for re-evaluation. Return to ED for any new or worsening symptoms. Patient Language: Slovak Prescriptions: No Action nifedipine 30 mg tablet extended release 30 mg PO DAILY Qty: 30 0RF polyethylene glycol 3350 [Miralax] 17 gram Powder In Packet 17 g PO QHS Qty: 30 1RF sennosides-docusate sodium [Senokot-S] 8.6-50 mg Tablet 1 tab-cap PO HS Qty: 30 0RF ciprofloxacin HCl [Cipro] 500 mg tablet 500 mg PO Q12H Qty: 6 0RF Follow-up/Referrals: PHYSICIAN,[facility]IC[facility] DEPARTMENT MANAGER [Primary Care Provider, Internal Medicine]
[2025-03-15 06:00] VITALS: BP 133/79; PULSE 88; RESP 16; O2SAT 100
[2025-03-15] MEDS: ACETAMINOPHEN 500 MG TABLET 1000 MG PO (06:08)
== END 2025-03-15 06:09 | disposition home or self-care (01) ==
PROVIDERS: Emergency Provider Student in an Organized Health Care Education/Training Program
DX: O26.893 Other specified pregnancy related conditions, third trimester (principal); S93.401A Sprain of unspecified ligament of right ankle, initial encounter; X50.0XXA Overexertion from strenuous movement or load, initial encounter; O99.323 Drug use complicating pregnancy, third trimester; F12.90 Cannabis use, unspecified, uncomplicated; Z3A.30 30 weeks gestation of pregnancy
CPT/HCPCS: 73610; 99283; A9270

== ENCOUNTER 2025-05-16 18:03 | Emergency (ER) | payer BC, SELFPAY ==
[2025-05-16 18:08] VITALS: BP 162/107; PULSE 86; RESP 16; TEMP 36.5; O2SAT 100
--- OUTSIDE RECORDS SUMMARY | 2025-05-16 18:52 | XMS_ITS | Encounter Summary ---
Author Organization [facility] Address [address] [place] [address] Care Team Providers Care Academic Services Professional Name Role Phone Tong Emanuel Unavailable [phone] Tong Emanuel Primary Care Provider Reason for Visit * Reason Comments Blood Pressure Headache * Auth/Cert Specialty Diagnoses / Procedures Referred By Ramiro rubalcava Referred To Contact Referral ID Status Reason Start Date Expiration Date Visits Re quested Visits Authorized [id number] 1 1 Encounter Details Date Type Department Care Team (Late st Contact Info) Description 05/16/2025 6:52 PM COLD STORAGE WORKER - Present Hospital Encounter HC 5E ANTEPARTUM/MOTHER BABY [address] [place] [address] Saadia Lanier MD [address] [facility] [address] [place] [address] Social History Tobacco Use Types Packs/Day Years Used Date Smoking Tobacco: Never Smokeless Tobacco: Never Alcohol Use Standard Drinks/Week Comments Not Currently 2 (1 standard drink = 0.6 oz pur e alcohol) AUDIT-C Answer Date Recorded Q1: How often do you have a drink containing alcohol? Never 11/23/2023 Q2: How many drinks containi ng alcohol do you have on a typical day when you are drinking? Patient does not drink Q3: How often do you have si x or more drinks on one occasion? Never 11/23/2023 PRAPARE - Transportation Answer Date Re corded In the past 12 months, has l ack of transportation kept you from medical appointments or from getting medications? No 07/2024 In the past 12 months, has l ack of transportation kept you from meetings, work, or from getting things needed for daily living? No 04/11/2025 Housing Stability Vital Sign Answer Herbie e Recorded In the last 12 months, was t here a time when you were not able to pay the mortgage or rent on time? No 01/03/2024 In the last 12 months, how many places have you lived? 1 01/03/2024 In the last 12 months, was t here a time when you did not have a steady place to sleep or slept in a custodial (including now)? No 01/03/2024 [place] Depression Scale Answer Date Recorded [place] Depression Scale Total 0 05/11/2025 The thought of harming myself has occurred to me . Never 05/11/2025 Housing Stability Vital Sign Answer Herbie e Recorded In the last 12 months, was t here a time when you were not able to pay the mortgage or rent on time? No 04/11/2025 In the past 12 months, how m any times have you moved where you were living? 0 04/11/2025 At any time in the past 12 m ont, were you homeless or living in a custodial (including now)? No 04/11/2025 Overall Financial Resource Strain (CARDIA) Answe r Date Recorded How hard is it for you to pa y for the very basics like food, housing, medical care, and heating? Not hard at all 05/16/2025 [facility] [place] [facility] - Occupational Stress Questionnaire Answer Date Recorded Do you feel stress - tense, restless, nervous, or anxious, or unable to sleep at night because your mind is troubled all the time - these days? Not at all 05/16/2025 Hunger Vital Sign Answer Date Recorded Within the past 12 months, y ou worried that your food would run out before you got the money to buy more. Never true 05/16/20 25 Within the past 12 months, t he food you bought just didn't last and you didn't have money to get more. Never true 05/16/2025 PRAPARE - Transportation Answer Date Re corded In the past 12 months, has l ack of transportation kept you from medical appointments or from getting medications? No 11/2024 In the past 12 months, has l ack of transportation kept you from meetings, work, or from getting things needed for daily living? No 05/16/2025 Housing Stability Vital Sign Answer Herbie e Recorded In the last 12 months, was t here a time when you were not able to pay the mortgage or rent on time? No 05/16/2025 In the past 12 months, how m any times have you moved where you were living? 0 05/16/2025 At any time in the [facility], were you homeless or living in a custodial (including now)? No 05/16/2025 Comments No Sex and Gender Information Value Date Recorded Sex Assigned at Female 05/16/2025 7:10 PM COLD STORAGE WORKER Legal Sex Female 5:34 AM COLD STORAGE WORKER Gender Identity Not on file Sexual Orientation Not on file documented as of this encounter Last Filed Vital Signs Vital Sign Reading Time Taken Comments Blood Pressure 147/96 05/17/2025 2:35 PM COLD STORAGE WORKER Pulse 109 05/17/2025 2:47 PM COLD STORAGE WORKER Temperature 37 C (98.6 F) 05/17/2025 1:05 PM COLD STORAGE WORKER Respiratory Rate 18 05/17/2025 1:05 PM COLD STORAGE WORKER Oxygen Saturation 100% 05/17/2025 2:47 PM COLD STORAGE WORKER Inhaled Oxygen Concentration - - Weight 79.4 kg (175 lb) 05/16/2025 10:55 PM COLD STORAGE WORKER Height 160 cm (5' 3) 05/16/2025 10:55 PM COLD STORAGE WORKER Body Mass Index 31 05/16/2025 10:55 PM COLD STORAGE WORKER documented in this encounter Functional Status * Functional and Cognitive Status Question Answer Date of Assessment Author Is person deaf or have sergio us hearing difficulty? No 05/16/2025 10:45 PM COLD STORAGE WORKER Christin Stiles RN Is person blind or have seri ous difficulty seeing? No 05/16/2025 10:45 PM COLD STORAGE WORKER Christin Stiles RN Does person have serious difficulty walking/climbing stairs? No 05/16/2025 10:45 PM COLD STORAGE WORKER Christin Stiles RN Does person have difficulty dressing/bathing? No 05/16/2025 10:45 PM COLD STORAGE WORKER Christin Stiles RN Does person have difficulty doing errands alone? No 05/16/2025 10:45 PM Christin More RN Does person have difficulty concentrating/remembering/making decisions? No 05/16/2025 10:45 PM Christin More RN * Is person deaf or have serious hearing difficulty? Answer Date of Assessment Author No 05/16/2025 10:45 PM Christin More RN * Is person blind or have serious difficulty seeing? Answer Date of Assessment Author No 05/16/2025 10:45 PM Christin More RN * Does person have serious difficulty walking/climbing stairs? Answer Date of Assessment Author No 05/16/2025 10:45 PM Christin More RN * Does person have difficulty dressing/bathing? Answer Date of Assessment Author No 05/16/2025 10:45 PM Christin More RN * Does person have difficulty doing errands alone? Answer Date of Assessment Author No 05/16/2025 10:45 PM Christin More RN documented as of this encounter Mental Status * Does person have difficulty concentrating/remembering/making decisions? Answer Entry Date Author No 05/16/2025 10:45 PM Christin More RN documented in this encounter Progress Notes * Abby Robbins RN - 05/17/2025 2:52 PM CST C/o chest discomfort vitals taken, EKG done, and Dr Foy will see her. STORAGE WORKER Vince Rapp - 05/17/2025 11:57 AM CST Health Education Specialist met with Patient in room for initial visit. Patient shared update with Health Education Specialist since previous hospital stay. She shared hope to go home soon and be with her children. Patient denied other concerns but thanked Health Education Specialist for coming. This Health Education Specialist offered support through listening presence byengaging in conversation and understanding. 05/17/25 1100 Visit Type Assessment Date 05/17/25 Health Education Specialist Visiting Patient G Pastoral Care Reason for Visit Initial Visit Pastoral Care Visit Type(s) Initial Visit Encounter Type Patient Spiritual History Community Family and Friends Support Spiritual Assessment Spiritual Assessment Exploring Ann/Health Issues Interventions Pastoral Care Conversation;Reflective Listening Plan/Outcome Plan Follow-up Available by Request Outcomes Awareness of Health Education Specialist Availability;Gratitude Expressed Vince Trinidad, Board Certified Health Education Specialist Ascom [phone] Outside: [phone] For more urgent needs, please page at the appropriate pager number below. [place] Pastoral Care pager - Call [phone] (Mon-Fri: 7AM - 4PM and Sun 7AM - 3PM). Pastoral Care hospital admissions officer pager - Call [phone] (outside of the times listed above) and enter a 10 digit call back number. Please allow the hospital admissions officer er medical technician 30 minutes to arrive to the hospital. STORAGE WORKER * Abby Robbins RN - 05/17/2025 8:21 AM CST Problem: Pain/Discomfort Goal: Patient exhibits reduced pain/discomfort as evidenced by pain scores Outcome: Progressing Tasha c/o castaneda more towards frontal region. She reports throbbing sensation. No nausea or visual difficulty reported. Castaneda worse with standing up. She holds her head with ambulation to bathroom. STORAGE WORKER STORAGE WORKER STORAGE WORKER * Coral Coffman MD - 05/17/2025 6:15 AM CST PGY-2 OB Post- Note 05/17/2025, 6:15 AM Subjective: No acute events overnight. Patient noting headache somewhat improved to 4/10. No fevers, chills, nausea, vomiting, chest pain, shortness of breath, or changes in vision. Pain is well controlled. Lochia is tapering appropriately. She reports she is tolerating a normal diet. She has ambulated and denies lightheadedness. Patient is voiding without difficulty. She is passing gas. Objective: Temp (36hrs) Max:99 ??F (37.2 ??C) Vitals: 05/17/25 0240 05/17/25 0335 05/17/25 0435 05/17/25 0535 BP: 105/76 109/60 117/63 103/57 Pulse: 84 77 78 82 Resp: 18 16 16 16 Temp: SpO2: Weight: Height: Intake/Output Summary (Last 24 hours) at 05/17/2025 0615 Last data filed at 05/17/2025 0202 Gross per 24 hour Intake -- Output 1250 ml Net -1250 ml No data found. PE: General: Alert, cooperative in no acute distress Lungs: Non-labored respirations Heart: Regular rate Abdomen: Abdomen soft, appropriately tender; fundus firm below umbilicus Incision: Clean, dry, intact Extremities: No calf tenderness Data: Recent Labs Component Name 05/16/25 1926 05/09/25 0319 05/08/25 0937 WBC 7.2 16.8* 6.5 HGB 10.4* 10.6* 10.7* HCT 31.2* 31.6* 31.5* PLTCOUNT 348 250 221 Recent Labs Component Name 05/08/25 0937 ABORH A POS Assessment/Plan: 34 year old , s/p rCS #5, PPD# 9 complicated by: Pre-Eclampsia with severe features Presentation - Hx of gestational hypertension in G5 and G7 (most recent) - Met criteria for preeclampsia with severe features in triage via sustained severe range blood pressures requiring acute treatment with Labetalol 20 - Symptoms: CASTANEDA: 5/10, minimal improvement after given tylenol. Otherwise asymptomatic - (05/16) PIH Labs: Plt: 348, Cr 0.62, AST/ALT 02/28, wnl Interval History - Patient reporting headache mildly improved to 4/10 - BP range since Nifedipine started: 103-153/57-94 (4/14 mild range, normotensive since midnight) - Repeat PIH labs pending this AM PLAN - Mg - Nifed 30 QHS Constipation - LBM: 06/10 - Has been using miralax 1x daily Plan: - Bowel regimen ordered while inpatient H/o depression - Unsure if formal dx, reports mainly situational. Recently lost both parents so has been grieving - EPDS 3 @ new OB - (05/16) Reports mood is good, denies thoughts of self harm, no SI/HI. Plan: - CTM mood State - Incision: Dressing removed in triage, incision clean dry and intact, healing well, without concern for wound dehiscence. - Lochia: None - Pain: Well controlled - Void: Spontaneous without difficulty - Diet: Tolerating without N/V - Feeding: Formula and without diffuculty - Mood: Stable, no thoughts of self harm, SI/HI Coral Coffman MD Obstetrics and Gynecology, PGY-2 05/17/2025 6:15 AM Cosigned by Farhan Lawson MD at 05/17/2025 9:25 AM COLD STORAGE WORKER STORAGE WORKER STORAGE WORKER Associated attestation - Farhan Lawson MD - 05/17/2025 9:25 AM COLD STORAGE WORKER OB Progress Note Patient personally seen and evaluated by me. I agree with the findings and plan of care as documented by the resident. Subjective: Patient resting in bed. CASTANEDA still present. Somewhat better. No abd pain, no RUQ pain. Objective: Temp (36hrs) Max:99 ??F (37.2 ??C) Vitals: 05/17/25 0535 05/17/25 0635 05/17/25 0750 05/17/25 0835 BP: 103/57 107/67 127/81 Pulse: 82 78 94 Resp: 16 16 17 Temp: 98.1 ??F (36.7 ??C) SpO2: 100% Weight: Height: Intake/Output Summary (Last 24 hours) at 05/17/2025 0921 Last data filed at 05/17/2025 0846 Gross per 24 hour Intake 240 ml Output 3650 ml Net -3410 ml Body mass index is 31 kg/m??. Exam: Abdomen: soft and appropriate post-op tenderness with palpation noted incision clean, dry and intact Extremities: legs non-tender, no erythema or swelling, 2/4 DTRs Lab: Recent Labs Component Name 05/17/25 0710 05/16/25 1926 05/09/25 0319 WBC 8.3 7.2 16.8* HGB 10.6* 10.4* 10.6* HCT 31.7* 31.2* 31.6* PLTCOUNT 338 348 250 Assessment/Plan: PP PreE w/SF: BP stable after treatment overnight. On Nifed 30 mg daily. S/p IV labetalol. On magnesium for sz prophylaxis. CASTANEDA present. Labs stable. Cont with Magnesium and BP control. Continue to work on CASTANEDA. documented in this encounter H&P Notes * Sharona Betancourt MD - 05/16/2025 6:56 PM CST PGY 1 Obstetric H&P Note 05/16/2025, 8:12 PM CC: Elevated blood pressure HPI: 34 year old at gestation PPD 8 MOD: section care: is with low risk [facility] Patient's is complicated by: Patient Active Problem List Diagnosis Date Noted Elevated blood pressure reading 05/16/2025 Priority: Not Prioritized Gestational hypertension, antepartum (HCC) 05/16/2025 Priority: Not Prioritized Nausea and vomiting, unspecified vomiting type 04/11/2025 Priority: Not Prioritized Encounter for supervision of low-risk in third trimester (HCC) 03/30/2025 Priority: Not Prioritized Gestational hypertension affecting fifth (HCC) Priority: Not Prioritized Depression Priority: Not Prioritized History of section 07/22/2023 Hx CS x 4 - G1 for arrest dilation at [facility] per pt but no records in careeverwhere - G2 repeat in [place], [place] - G3 repeat at [facility] > op note requested - G5 scheduled repeat [facility]: Op note on 11/23/23 reviewed. Dense adhesions noted. No uterine window Patient presents with a complaint of elevated blood pressures. She reports that she had an appointment at the [facility] center today and her BP check there was 151/107 > 163/106 >170/110, 15 min check intervals. She went home following that visit and later checked her blood pressure again and notedthe following readings: 177/121 > 157/100, 163/107, which prompted her to come in for an evaluation. +CASTANEDA, present since yesterday, located over bitemporal regions and is currently 5-6/10. She also endorses having +blurry vision, she wears prescription lenses, has not worn it all year. She denies having spotty vision or floaters. She also reports no CP, SOB, palpitations, orthopnea, No RUQ/epigastric pain, no swelling in extremities or face. Review of Symptoms: A comprehensive review of systems was negative except as stated above Obstetrical History: OB History Para Term AB Living 6 5 5 1 5 SAB IAB Ectopic Multiple Live Births 0 0 5 # Outcome Date GA Lbr Erasmo/2nd Weight Sex Type Anes PTL Lv 6 Term 05/08/25 39w0d 3500 g (7 lb 11.5 oz) F Spinal N CHELSEY 5 Term 11/23/23 38w4d 3220 g (7 lb 1.6 oz) M CS-LTranv Spinal N CHELSEY Complications: Gestational hypertension (HCC) 4 AB 2020 TAB 3 Term 06/03/20 39w0d 2863 g (6 lb 5 oz) F CHELSEY 2 Term 01/22/15 39w0d 2920 g (6 lb 7 oz) M 1 Term 05/21/13 40w2d 3090 g (6 lb 13 oz) M CS-LTranv Complications: Failure to Progress in First Stage, Chorioamnionitis (HCC) Gynecologic History: History of abnormal pap smear: 03/03/22 NILM/ HPV (+), 12/21/24 NILM, HPV (-) History of procedure on cervix: Denies STI History: Denies history of chlamydia, trichomonas, herpes, HIV, syphilis +remote h/o gonorrhea ~20 years ago, treated Medical History: Past Medical History[1] She denies history of diabetes, asthma or bleeding disorders. +Hx of gestational hypertension Psych History: Depression: Yes, not on medications Anxiety: No Bipolar disorder: No Schizophrenia: No Surgeries: Past Surgical History: Procedure Laterality Date Section Section N/A 11/23/2023 N/A; SECTION (EMERGENCY) Section N/A 05/08/2025 N/A; SECTION (REPEAT) Current Medications: Prior to Admission medications Medication Sig Start Date End Date Taking? Authorizing Provider acetaminophen (Tylenol) 500 MG tablet Take 2 (two) tablets by mouth every 6 hours as needed for Fever or Pain 05/11/25 Coral Coffman MD acetaminophen-caffeine 500-65 MG tablet Take 2 (two) tablets by mouth every 6 hours as needed for Headache Do not exceed 4 tablets in 24 hours. Do not exceed 4g Acetaminophen/24 hours 04/18/25 Kathy Morin APRN-CNP aspirin EC (Ecotrin) 81 MG tablet Take 1 (one) tablet by mouth once daily Reasons: preeclampsia prevention 12/21/24 Annetta Parmar APRN-BRICE docusate sodium (Colace) 100 MG capsule Take 1 (one) capsule by mouth once daily 05/11/25 Coral Coffman MD ferrous sulfate 325 (65 FE) MG tablet Take 1 (one) tablet by mouth once daily 05/11/25 Coral Coffman MD ferrous sulfate 325 (65 FE) MG tablet Take 1 (one) tablet by mouth once daily Reasons: Anemia From Inadequate Iron in the Body 04/30/25 Shellie Dawkins APRN-CNP fluconazole (Diflucan) 150 MG tablet Take 1 (one) tablet by mouth once daily 04/18/25 Kathy Morin APRN-CNP ibuprofen (Motrin) 600 MG tablet Take 1 (one) tablet by mouth every 6 hours as needed for Pain 05/11/25 Coral Coffman MD naloxone HCl (Narcan) 4 MG/0.1ML nasal spray Miller 1 (one) spray into the nose as needed (May repeat every 2 min in alternating nostrils until emergency medical help arrives for overdose) 05/11/25 Coral Coffman MD norethindrone 0.35 MG tablet Take 1 (one) tablet by mouth once daily 05/11/25 Abby Smalls MD ondansetron, disintegrating, (Zofran ODT) 4 MG tablet Take 1 (one) tablet by mouth every 6 hours asneeded for Nausea/Vomiting Allow tablet to dissolve on the tongue 04/18/25 Kathy Morin APRN-BRICE oxyCODONE, immediate release, (Roxicodone) 5 MG tablet Take 1 (one) tablet by mouth every 4 hours as needed for Pain 05/11/25 Coral Coffman MD polyethylene glycol 3350 (Miralax) 17 GM/SCOOP powder Mix 17 grams of powder in liquid and drink once daily 05/11/25 Coral Coffman MD plus iron (Natatab) 29-1 MG tablet Take 1 (one) tablet by mouth once daily 05/11/25 Coral Coffman MD Vit-Fe Fumarate-FA ( vitamin) 27-0.8 MG tablet 06/08/23 ProviderNakul MD Allergies: Allergies[2] Social History: Social History Smoking status: Never Smokeless tobacco: Never Alcohol use: Not Current* Drug use: Not Current* Sexual activity: Not on file Family History: Family History[3] No history of infants born with defects No history of family members with bleeding disorders or history of blood clots. No history of breast, ovarian, or uterine cancer Objective: Patient Vitals for the past 24 hrs: Temp Pulse Resp BP 05/16/25 1917 -- 80 -- 136/82 05/16/25 1902 98 ??F (36.7 ??C) 81 18 146/90 Physical Exam General: no acute distress, alert and oriented x3 Heart: regular rate, no rubs/murmurs/gallops Lungs: clear to auscultation bilaterally, no wheezing/crackles Abdomen: soft, non-tender, normoactive bowel sounds Extremities: non-tender bilaterally, no edema bilaterally Psych: appropriate affect Current Lab Review: Hospital Encounter on 05/16/25 CBC W AUTO DIFFERENTIAL Result Value Ref Range WBC 7.2 4.0 - 10.7 x10E9/L RBC Count 3.93 3.90 - 5.20 x10E12/L Hemoglobin 10.4 (L) 11.9 - 15.8 g/dL Hematocrit 31.2 (L) 34.8 - 46.1 % MCV 79.4 (L) 80.0 - 98.0 fL MCH 26.5 (L) 26.7 - 33.6 pg MCHC 33.3 31.7 - 36.3 g/dL RDW-CV 14.0 11.3 - 14.8 % Platelet Count 348 150 - 420 x10E9/L MPV 11.1 7.8 - 11.4 fL Neutrophil % 62.3 41.0 - 74.0 % Lymphocyte % 27.4 17.0 - 47.0 % Monocyte % 7.5 3.0 - 11.0 % Eosinophil % 1.9 0.0 - 7.0 % Basophil % 0.3 0.0 - 1.6 % Immature Granulocytes % 0.6 0.0 - 1.0 % Neutrophil Absolute 4.49 1.60 - 7.50 x10E9/L Lymphocyte Absolute 1.97 1.00 - 4.40 x10E9/L Monocyte Absolute 0.54 0.15 - 1.00 x10E9/L Eosinophil Absolute 0.14 0.00 - 0.60 x10E9/L Basophil Absolute 0.02 0.00 - 0.13 x10E9/L COMPREHENSIVE METABOLIC PANEL Result Value Ref Range Glucose 110 (H) 70 - 99 mg/dL Sodium 141 136 - 145 mmol/L Potassium 3.7 3.5 - 5.1 mmol/L Chloride 112 (H) 98 - 107 mmol/L CO2 21 (L) 22 - 29 mmol/L Calcium 8.8 8.4 - 10.4 mg/dL Anion Gap 8 6 - 16 mmol/L BUN 12 5.3 - 18.7 mg/dL Creatinine 0.62 0.50 - 1.00 mg/dL Alkaline Phosphatase 81 40 - 150 U/L ALT 8 6 - 57 U/L AST 20 10 - 48 U/L Protein Total 6.5 6.4 - 8.3 gm/dL Albumin 3.0 (L) 3.1 - 4.5 gm/dL Bilirubin Total 0.2 0.2 - 1.2 mg/dL eGFR by CKD-EPI >90 >=90 mL/min/1.73 m2 Assessment/Plan: 34 year old at gestation Pre-Eclampsia with severe features - Hx of gestational hypertension in G5 and G7 - 12/21 Baseline labs Plt 191, Cr 0.57, AST/ALT 26/04, P:C TLTC - (05/16) PIH Labs: Plt: 348, Cr 0.62, AST/ALT 02/28, wnl - BP range while in triage: 126-181/82-106, 7 MR, 09/23 SR BP - Required acute treatment with Labetalol 20 - Symptoms: CASTANEDA: 11/18, minimal improvement after given tylenol. Otherwise asymptomatic Plan: - Will admit to PSCU, mag bolus (4g) and 2g/hr infusion - Nifed 30qhs, will up titrate BP regimen as indicated - CTM BP - Tylenol, Reglan + Benadryl for CASTANEDA Constipation - LBM: 06/10 - Has been using miralax 1x daily Plan: - Bowel regimen ordered while inpatient H/o depression - Unsure if formal dx, reports mainly situational. Recently lost both parents so has been grieving - EPDS 3 @ new OB - (05/16) Reports mood is good, denies thoughts of self harm, no SI/HI. Plan: - CTM mood Sickle-cell trait - Outside records rev'd, hemoglobinopathy - 2T: neg - 3T neg State - Incision: Dressing removed today in triage, incision looked clean dry and intact, healing well, without concern for wound dehiscence. - Lochia: None - Pain: Well controlled - Void: Spontaneous without difficulty - Diet: Tolerating without N/V - Feeding: Formula and without diffuculty - Mood: Stable, no thoughts of self harm, SI/HI Dispo: Admit patient to PSCU. Continue routine care. Discussed with Mary Beth Chinchilla, and Ky Hernadez MD 05/16/2025 8:12 PM PGY4 addendum Briefly the patient is a 34yr who is POD #9 s/p rCS#5. She presented today for headache at home andelevated blood pressure. CASTANEDA improved after compazine. While in triage, BP originally mild range butthen she had severe range blood pressures requiring acute treatment with Lab 20. She was started onNifed 30 and mg was initiated. CBC/CMP were unremarkable. Will admit for BP observation, up titratio n of BP meds as needed. Incision check was performed. Incision well healing. Elly Clinton, 05/17/2025 4:00 AM [1] Past Medical History: Diagnosis Date Bacterial vaginosis in (HCC) 11/08/2023 - [11/07]Exam consistent with BV. Rx for Flagyl 500 mg BID x 7 days sent to pharmacy on file - [place] care guidelines reviewed. Depression Elevated blood pressure affecting in third trimester, antepartum (HCC) 11/23/2023 New finding of elevated blood pressures today at 38.4 weeks Gestational hypertension affecting fifth (HCC) hypertension (HCC) 12/07/2023 Sickle cell trait Uterine size-date discrepancy in third trimester (HCC) 10/11/2023 10/11/23: measuring 37 cm at 32 weeks Add-On Growth u/s: EFW 1969 40%, AC 55%, PETER 21.0 11/04: EFW: 2694g (29%), AC 55%, PETER 19.4cm, cephalic F/U as clinically indicated [2] No Known Allergies [3] Family History Problem Relation Name Age of Onset Other - Defects Neg Hx Cosigned by Jeny Mcpherson MD at 05/17/2025 7:18 AM COLD STORAGE WORKER STORAGE WORKER STORAGE WORKER Associated attestation - Jeny Mcpherson MD - 05/17/2025 7:18 AM COLD STORAGE WORKER [employer] TEACHER DANCING ATTENDING I have seen and evaluated the patient and discussed the patient's history and physical as well as the assessment and plan with the resident team and I agree with the above documentation. Jeny Mcpherson MD documented in this encounter Plan of Treatment Not on file documented as of this encounter Procedures * The patient is currently admitted. The information in this section might not be complete until the patient is discharged. Procedure Name Priority Date/Time Associated Diagnosis Comments CBC W/O DIFFERENTIAL Routine 05/17/2025 7:10 AM COLD STORAGE WORKER COMPREHENSIVE METABOLIC PANEL Routine 05/17/2025 7:10 AM COLD STORAGE WORKER CBC W AUTO DIFFERENTIAL STAT 05/16/2025 7:26 PM [employer] Gestational hypertension, antepartum (HCC) COMPREHENSIVE METABOLIC PANEL STAT 05/16/2025 7:26 PM [employer] Gestational hypertension, antepartum (HCC) documented in this encounter Results * (ABNORMAL) COMPREHENSIVE METABOLIC PANEL (05/17/2025 7:10 AM [employer] WORK[employer]) [facility] Glucose 93 70 - 99 mg/dL 05/17/2025 7:[address] [facility] Sodium 139 136 - 145 mmol/L 05/17/2025 7:[address] [facility] Potassium 3.9 3.5 - 5.1 mmol/L 05/17/2025 7:[address] [facility] Chloride 111(H) 98 - 107 mmol/L 05/17/2025 7:[address] [facility] CO2 21(L) 22 - 29 mmol/L 05/17/2025 7:[address] [facility] Calcium 7.9(L) 8.4 - 10.4 mg/dL 05/17/2025 7:[address] [facility] Anion Gap 7 6 - 16 mmol/L 05/17/2025 7:[address] [facility] BUN 8 5.3 - 18.7 mg/dL 05/17/2025 7:[address] [facility] Creatinine 0.59 0.50 - 1.00 mg/dL 05/17/2025 7:[address] [facility] Alkaline Phosphatase 78 40 - 150 U/L 05/17/2025 7:[address] [facility] ALT 9 6 - 57 U/L 05/17/2025 7:[address] [facility] AST 17 10 - 48 U/L 05/17/2025 7:[address] [facility] Protein Total 6.3(L) 6.4 - 8.3 gm/dL 05/17/2025 7:[address] [facility] Albumin 2.9(L) 3.1 - 4.5 gm/dL 05/17/2025 7:[address] [facility] Bilirubin Total 0.2 0.2 - 1.2 mg/dL 05/17/2025 7:[address] [facility] eGFR by CKD-EPI >90 >=90 mL/min/1.7 3 m2 05/17/2025 7:[address] [facility] Comment:Estimated Glomerular Filtration Rate (eGFR) calculated using the CKD-EPI Creatinine Equation (2020), per the National [employer] and [place] [employer] recommendations. Blood BLOOD SPECIMEN / Unknown Lab Venipuncture / Unknown 05/17/2025 7:10 AM [employer] 05/17/2025 7:16 AM [employer] WORK[employer] us Saadia Lanier MD LAB - CHEMISTRY ORDERABLES Final Result Performing Organization Address City/[facility]/ZIP Co de Phone Number [facility] [address] [place] [address] [phone] * (ABNORMAL) CBC W/O DIFFERENTIAL (05/17/2025 7:10 AM C[employer] ST[employer] WORK[employer]) [facility] WBC 8.3 4.0 - 10.7 x10E9/L 05/17/2025 7:[address] [facility] RBC Count 4.03 3.90 - 5.20 x10E12/L 05/17/2025 7:[address] [facility] Hemoglobin 10.6(L) 11.9 - 15.8 g/dL 05/17/2025 7:[address] [facility] Hematocrit 31.7(L) 34.8 - 46.1 % 05/17/2025 7:[address] [facility] MCV 78.7(L) 80.0 - 98.0 fL 05/17/2025 7:[address] [facility] MCH 26.3(L) 26.7 - 33.6 pg 05/17/2025 7:[address] [facility] MCHC 33.4 31.7 - 36.3 g/dL 05/17/2025 7:[address] [facility] RDW-CV 14.1 11.3 - 14.8 % 05/17/2025 7:[address] [facility] Platelet Count 338 150 - 420 x10E9/L 05/17/2025 7:[address] [facility] MPV 10.7 7.8 - 11.4 fL 05/17/2025 7:[address] [facility] Blood BLOOD SPECIMEN / Unknown Lab Venipuncture / Unknown 05/17/2025 7:10 AM [employer] 05/17/2025 7:16 AM [employer] WORK[employer] us Saadia Lanier MD LAB - HEMATOLOGY ORDERABLES Lorrie l Result Performing Organization Address City/[facility]/ZIP Co de Phone Number [facility] [address] [place] [phone] * (ABNORMAL) COMPREHENSIVE METABOLIC PANEL (05/16/2025 7:26 PM [facility]) Glucose 110(H) 70 - 99 mg/dL 05/16/2025 8:[address] [facility] Sodium 141 136 - 145 mmol/L 05/16/2025 8:[address] [facility] Potassium 3.7 3.5 - 5.1 mmol/L 05/16/2025 8:[address] [facility] Chloride 112(H) 98 - 107 mmol/L 05/16/2025 8:[address] [facility] CO2 21(L) 22 - 29 mmol/L 05/16/2025 8:[address] [facility] Calcium 8.8 8.4 - 10.4 mg/dL 05/16/2025 8:[address] [facility] Anion Gap 8 6 - 16 mmol/L 05/16/2025 8:[address] [facility] BUN 12 5.3 - 18.7 mg/dL 05/16/2025 8:[address] [facility] Creatinine 0.62 0.50 - 1.00 mg/dL 05/16/2025 8:[address] [facility] Alkaline Phosphatase 81 40 - 150 U/L 05/16/2025 8:[address] [facility] ALT 8 6 - 57 U/L 05/16/2025 8:[address] [facility] AST 20 10 - 48 U/L 05/16/2025 8:[address] [facility] Protein Total 6.5 6.4 - 8.3 gm/dL 05/16/2025 8:[address] [facility] Albumin 3.0(L) 3.1 - 4.5 gm/dL 05/16/2025 8:[address] [facility] Bilirubin Total 0.2 0.2 - 1.2 mg/dL 05/16/2025 8:[address] [facility] eGFR by CKD-EPI >90 >=90 mL/min/1.7 3 m2 05/16/2025 8:[address] [facility] Comment:Estimated Glomerular Filtration Rate (eGFR) calculated using the CKD-EPI Creatinine Equation (2020), per the National Kid[employer] and [place] [employer]ph[employer] recommendations. Blood BLOOD SPECIMEN / Unknown Venipuncture / Unknown 05/16/2025 7:26 PM [employer] 05/16/2025 7:41 PM [employer] WORK[employer] us Saadia Lanier MD LAB - CHEMISTRY ORDERABLES Final Result [facility] [address] [place] [address] * (ABNORMAL) CBC W AUTO DIFFERENTIAL (05/16/2025 7:26 PM [employer] WORK[employer]) WBC 7.2 4.0 - 10.7 x10E9/L 05/16/2025 7:[address] [facility] RBC Count 3.93 3.90 - 5.20 x10E12/L 05/16/2025 7:[address] [facility] Hemoglobin 10.4(L) 11.9 - 15.8 g/dL 05/16/2025 7:[address] [facility] Hematocrit 31.2(L) 34.8 - 46.1 % 05/16/2025 7:[address] [facility] MCV 79.4(L) 80.0 - 98.0 fL 05/16/2025 7:[address] [facility] MCH 26.5(L) 26.7 - 33.6 pg 05/16/2025 7:[address] [facility] MCHC 33.3 31.7 - 36.3 g/dL 05/16/2025 7:[address] [facility] RDW-CV 14.0 11.3 - 14.8 % 05/16/2025 7:[address] [facility] Platelet Count 348 150 - 420 x10E9/L 05/16/2025 7:[address] [facility] MPV 11.1 7.8 - 11.4 fL 05/16/2025 7:[address] [facility] Neutrophil % 62.3 41.0 - 74.0 % 05/16/2025 7:[address] [facility] Lymphocyte % 27.4 17.0 - 47.0 % 05/16/2025 7:[address] [facility] Monocyte % 7.5 3.0 - 11.0 % 05/16/2025 7:[address] [facility] Eosinophil % 1.9 0.0 - 7.0 % 05/16/2025 7:45 PM [employer] [facility] Basophil % 0.3 0.0 - 1.6 % 05/16/2025 7:45 PM [employer] [facility] Immature Granulocytes % 0.6 0.0 - 1.0 % 05/16/2025 7:45 PM [employer] [facility] Neutrophil Absolute 4.49 1.60 - 7.50 x10E9/L 05/16/2025 7:45 PM [employer] [facility] Lymphocyte Absolute 1.97 1.00 - 4.40 x10E9/L 05/16/2025 7:45 PM C[employer] [facility] Monocyte Absolute 0.54 0.15 - 1.00 x10E9/L 05/16/2025 7:45 PM [employer] [facility] Eosinophil Absolute 0.14 0.00 - 0.60 x10E9/L 05/16/2025 7:45 PM C[employer] WORK[employer] [facility] Basophil Absolute 0.02 0.00 - 0.13 x10E9/L 05/16/2025 7:[address] [facility] Blood BLOOD SPECIMEN / Unknown Venipuncture / Unknown 05/16/2025 7:26 PM [employer] WORK[employer] 05/16/2025 7:42 PM [employer] WORK[employer] Saadia Lanier MD LAB - HEMATOLOGY ORDERABLES Lorrie larose Result Performing Organization Address City/State/[facility] Co de Phone Number [facility] [address] [place] [phone] documented in this encounter Visit Diagnoses Diagnosis Elevated blood pressure reading- Primary Elevated blood pressure reading without diagnosis of hypertension Elevated blood pressure reading Elevated blood pressure reading without diagnosis of hypertension Gestational hypertension, antepartum (HCC) Gestational hypertension, antepartum (HCC) documented in this encounter Administered Medications Active Administered Medications - up to 3 most recent administrations Medication Order MAR Action Action Date Dose Rate Site 0.9% NaCl injection 1-10 mL 1-10 mL, Intracatheter, PRN, Other, peripheral line flush, Starting on Wed05/16/25 at 2217, Until Discontinued, Flush peripheral IV catheter with 1-10 mL of normal saline before and after medications and prn to clear blood from the line or to verify patency. 0.9% NaCl injection 3 mL 3 mL, Intracatheter, EVERY 8 HOURS, First dose on Wed05/16/25 at 2300, Until Discontinued, Flush peripheral IV catheter with 3 mL of normal saline every 8 hours. $ Given 05/16/2025 11:06 PM [employer] 3 mL acetaminophen (Tylenol) tablet 1,000 mg 1,000 mg, Oral, EVERY 6 HOURS PRN, Mild Pain, Moderate Pain, Starting on Wed05/16/25 at 2349, Until Discontinued, Patient preference for lesser PRN pain meds may be honored when the patient requests a less strong medication, a lower dose, or a less intrusive route of administration when the lesser drug, dose and route have been ordered for the patient. This patient request must be documented in the MAR. If both oral and IV options are ordered for the same pain severity, give oral first unless patient cannot tolerate oral intake. $ Given 05/17/2025 2:01 AM [employer] 1,000 mg calcium carbonate (Tums) chew tablet 2 tablet 2 tablet, Oral, EVERY 6 HOURS PRN, Heartburn, Starting on Wed05/17/25 at 1323, Until Discontinued $ Given 05/17/2025 1:34 PM [employer] 2 tablets docusate sodium (Colace) capsule 100 mg 100 mg, Oral, 2 TIMES DAILY, First dose on Wed05/16/25 at 2315, Until Discontinued $ Given 05/17/2025 8:42 AM [employer] 100 mg $ Given 05/16/2025 11:10 PM [employer] 100 mg ferrous sulfate tablet 325 mg 325 mg, Oral, DAILY AFTER LUNCH, First dose on Wed05/17/25 at 1300, Until Discontinued, Take with food. $ Given 05/17/2025 1:07 PM [employer] 325 mg ibuprofen (Motrin) tablet 600 mg 600 mg, Oral, EVERY 6 HOURS PRN, Mild Pain, Moderate Pain, Starting on Wed05/16/25 at 2348, Until Discontinued, Maximum allowable amount = 3200 mg / 24 hours. Patient preference for lesser PRN pain meds may be honored when the patient requests a less strong medication, a lower dose, or a less intrusive route of administration when the lesser drug, dose and route have been ordered for the patient. This patient request must be documented in the MAR. If both oral and IV options are ordered for the same pain severity, give oral first unless patient cannot tolerate oral intake. $ Given 05/17/2025 2:40 PM [employer] 600 mg $ Given 05/17/2025 2:42 AM [employer] 600 mg lactated ringers infusion at 75 mL/hr, Intravenous, CONTINUOUS, Starting on Wed05/16/25 at 2330, Until Discontinued $ New Bag/Syringe 05/17/2025 1:35 PM [employer] 75 mL/hr Rate Change 05/16/2025 11:41 PM [employer] 75 mL/hr $ New Bag/Syringe 05/16/2025 11:04 PM [employer] 50 mL /hr magnesium sulfate 20 g in 500 mL infusion 2 g/hr (50 mL/hr), Intravenous, CONTINUOUS, Starting on Wed05/16/25 at 2300, Until Discontinued $ New Bag/Syringe 05/17/2025 8:46 AM [employer] 2 g/hr 50 mL/hr $ New Bag/Syringe 05/16/2025 11:08 PM [employer] 2 g/hr 50 mL /hr NIFEdipine CR osmotic 24hr (Procardia-XL) tablet 30 mg 30 mg, Oral, AT BEDTIME, First dose on Wed05/16/25 at 2230, Until Discontinued, Do not crush, chew, or cut in half. $ Given 05/16/2025 10:38 PM [employer] 30 mg oxyCODONE (immediate release) (Roxicodone) tablet 5 mg 5 mg, Oral, EVERY 4 HOURS PRN, Severe Pain, Starting on Wed05/16/25 at 2349, Until Discontinued, Patient preference for lesser PRN pain meds may be honored when the patient requests a less strong medication, a lower dose, or a less intrusive route of administration when the lesser drug, dose and route have been ordered for the patient. This patient request must be documented in the MAR. If both oral and IV options are ordered for the same pain severity, give oral first unless patient cannot tolerate oral intake. $ Given 05/17/2025 2:[address] 5 mg $ Given 05/17/2025 8:13 AM [employer] WORKER 5 mg polyethylene glycol 3350 (Miralax) packet 17 g 17 g, Oral, 2 TIMES DAILY, First dose on Wed05/16/25 at 2315, Until Discontinued, 17 g dose: mix in 8 ounces of water, juice, soda, coffee or tea prior to administration. For bowel prep check for other instructions. $ Given 05/17/2025 8:42 AM [employer] 17 g $ Given 05/16/2025 11:10 PM [employer] 17 g vitamin with iron tablet 1 tablet 1 tablet, Oral, DAILY, First dose on Wed05/17/25 at 0900, Until Discontinued $ Given 05/17/2025 8:42 AM [employer] 1 tablet Inactive Administered Medications - up to 3 most recent administrations Medication Order MAR Action Action Date Dose Rate Site acetaminophen (Tylenol) tablet 1,000 mg 1,000 mg, Oral, Once, 1 dose, On Wed05/16/25 at 1945, Patient preference for lesser PRN pain meds may be honored when the patient requests a less strong medication, a lower dose, or a less intrusive route of administration when the lesser drug, dose and route have been ordered for the patient. This patient request must be documented in the MAR. If both oral and IV options are ordered for the same pain severity, give oral first unless patient cannot tolerate oral intake. $ Given 05/16/2025 7:45 PM [employer] 1,000 mg diphenhydrAMINE (Benadryl) capsule 25 mg 25 mg, Oral, ONCE, 1 dose, On Wed05/17/25 at 0215 $ Given 05/17/2025 2:01 AM [employer] 25 mg diphenhydrAMINE (Benadryl) capsule 25 mg 25 mg, Oral, ONCE, 1 dose, On Wed05/17/25 at 0615 $ Given 05/17/2025 5:51 AM [employer] 25 mg ibuprofen (Motrin) tablet 800 mg 800 mg, Oral, NOW, 1 dose, On Wed05/16/25 at 2130, Maximum allowable amount = 3200 mg / 24 hours. Patient preference for lesser PRN pain meds may be honored when the patient requests a less strong medication, a lower dose, or a less intrusive route of administration when the lesser drug, dose and route have been ordered for the patient. This patient request must be documented in the MAR. If both oral and IV options are ordered for the same pain severity, give oral first unless patient cannot tolerate oral intake. $ Given 05/16/2025 9:31 PM [employer] 800 mg labetalol (Normodyne; Trandate) injection 20 mg 20 mg, Intravenous, ONCE PRN, Hypertension, see admin instructions, Starting on Wed05/16/25 at 2240, Until Brandi 05/17/25 at 0239, Initial Dose If systolic BP greater than or equal to 160 mmHg or diastolic BP greater than or equal to 110 mmHg for 15 minutes or more, administer labetalol 20 mg IV over 2 minutes. Repeat BP in 10 minutes. If BP remains elevated, see order for second labetalol dose. $ Given 05/16/2025 10:42 PM [employer] 20 mg lactated ringers infusion ADS Med 1 dose, Starting on Wed05/16/25 at 2256, Until Wed05/16/25 at 2304, Created by cabinet override magnesium sulfate bolus from bag 4 g 4 g, Intravenous, BOLUS FROM BAG ONCE, 1 dose, On Wed05/16/25 at 2230, Maximum rate 2gm/10 minutes. 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 Depression: level of alertness - Chest Pain - Palpitations - Flushing - Nausea - Vomiting - Headache - Blurred Vision - Respiratory Depression (respirations less than 12 per minute) - Pulmonary Edema (crackles identified with breath sounds) Bolus From Bag 05/16/2025 11:08 PM [employer] 4 g metoclopramide (Reglan) tablet 10 mg 10 mg, Oral, ONCE, 1 dose, On Brandi 05/17/25 at 0615 $ Given 05/17/2025 5:51 AM [employer] 10 mg prochlorperazine (Compazine) tablet 10 mg 10 mg, Oral, ONCE, 1 dose, On Wed05/16/25 at 2100 $ Given 05/16/2025 8:44 PM [employer] 10 mg documented in this encounter Active and Recently Administered Medications Times are shown in [employer]. Scheduled Medication Order 05/15/2025 05/16/2025 05/17/2025 0.9% NaCl injection 3 mL(Linked Group 1) 3 mL, Intracatheter, EVERY 8 HOURS, First dose on Wed05/16/25 at 2300, Until Discontinued, Flush peripheral IV catheter with 3 mL of normal saline every 8 hours. 2306 ($ Given - Provider: Christin Stiles RN) 0406 (Not Administered - Provider: Delores Bocanegra RN - Reason: IV Currently Infusing)2200 (Due) acetaminophen (Tylenol) tablet 1,000 mg (COMPLETED) 1,000 mg, Oral, Once, 1 dose, On Wed05/16/25 at 1945, Patient preference for lesser PRN pain meds may be honored when the patient requests a less strong medication, a lower dose, or a less intrusive route of administration when the lesser drug, dose and route have been ordered for the patient. This patient request must be documented in the MAR. If both oral and IV options are ordered for the same pain severity, give oral first unless patient cannot tolerate oral intake. 194 ($ Given - Provider: Stefani Mark RN) phbyaeuetu-akpcsotpycsvt-bx ffeine (Fioricet) 50-325-40 MG tablet 1 tablet 1 tablet, Oral, Once, 1 dose, On Wed05/17/25 at 1500, Do not exceed 6 tablets in 24 hours 1500 (Due) diphenhydrAMINE (Benadryl) capsule 25 mg (COMPLETED) 25 mg, Oral, ONCE, 1 dose, On Wed05/17/25 at 0215 0201 ($ Given - Provider: Delores Bocanegra RN) diphenhydrAMINE (Benadryl) capsule 25 mg (COMPLETED) 25 mg, Oral, ONCE, 1 dose, On Wed05/17/25 at 0615 0551 ($ Given - Provider: Delores Bocanegra RN) docusate sodium (Colace) capsule 100 mg 100 mg, Oral, 2 TIMES DAILY, First dose on Wed05/16/25 at 2315, Until Discontinued 2310 ($ Given - Provider: Christin Stiles RN) 0842 ($ Given - Provider: Abby Robbins RN)2100 (Due) ferrous sulfate tablet 325 mg 325 mg, Oral, DAILY AFTER LUNCH, First dose on Wed05/17/25 at 1300, Until Discontinued, Take with food. 1307 ($ Given - Provider: Abby Robbins RN) ibuprofen (Motrin) tablet 800 mg (COMPLETED) 800 mg, Oral, NOW, 1 dose, On Wed05/16/25 at 2130, Maximum allowable amount = 3200 mg / 24 hours. Patient preference for lesser PRN pain meds may be honored when the patient requests a less strong medication, a lower dose, or a less intrusive route of administration when the lesser drug, dose and route have been ordered for the patient. This patient request must be documented in the MAR. If both oral and IV options are ordered for the same pain severity, give oral first unless patient cannot tolerate oral intake. 2130 ($ Given - Provider: Stefani Mark RN) magnesium sulfate bolus from bag 4 g (COMPLETED) 4 g, Intravenous, BOLUS FROM BAG ONCE, 1 dose, On Wed05/16/25 at 2230, Maximum rate 2gm/10 minutes. 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 Depression: level of alertness - Chest Pain - Palpitations - Flushing - Nausea - Vomiting - Headache - Blurred Vision - Respiratory Depression (respirations less than 12 per minute) - Pulmonary Edema (crackles identified with breath sounds) 2307 (Bolus From Bag - Provider: Christin Stiles RN) metoclopramide (Reglan) tablet 10 mg (COMPLETED) 10 mg, Oral, ONCE, 1 dose, On Wed05/17/25 at 0615 0551 ($ Given - Provider: Delores Bocanegra RN) NIFEdipine CR osmotic 24hr (Procardia-XL) tablet 30 mg 30 mg, Oral, AT BEDTIME, First dose on Wed05/16/25 at 2230, Until Discontinued, Do not crush, chew, or cut in half. 2237 ($ Given - Provider: Belle Foreman RN) 2099 (Due) polyethylene glycol 3350 (Miralax) packet 17 g 17 g, Oral, 2 TIMES DAILY, First dose on Wed05/16/25 at 2315, Until Discontinued, 17 g dose: mix in 8 ounces of water, juice, soda, coffee or tea prior to administration. For bowel prep check for other instructions. 2309 ($ Given - Provider: Christin Stiles RN) 08 ($ Given - Provider: Abby Robbins RN)2099 (Due) vitamin with iron tablet 1 tablet 1 tablet, Oral, DAILY, First dose on Wed05/17/25 at 0900, Until Discontinued 08 ($ Given - Provider: Abby Robbins RN) prochlorperazine (Compazine) tablet 10 mg (COMPLETED) 10 mg, Oral, ONCE, 1 dose, On Wed05/16/25 at 2100 2044 ($ Given - Provider: Stefani Mark RN) Continuous Medication Order 05/15/2025 05/16/2025 05/17/2025 lactated ringers infusion at 75 mL/hr, Intravenous, CONTINUOUS, Starting on Wed05/16/25 at 2330, Until Discontinued 2304 ($ New Bag/Syringe - Provider: Christin Stiles RN)2341 (Rate Change - Provider: Delores Bocanegra RN) 1335 ($ New Bag/Syringe - Provider: Abby Robbins RN) magnesium sulfate 20 g in 500 mL infusion 2 g/hr (50 mL/hr), Intravenous, CONTINUOUS, Starting on Wed05/16/25 at 2300, Until Discontinued 2308 ($ New Bag/Syringe - Provider: Christin Stiles RN) 0846 ($ New Bag/Syringe - Provider: Abby Robbins RN) PRN Medication Order 05/15/2025 05/16/2025 05/17/2025 0.9% NaCl injection 1-10 mL(Linked Group 1) 1-10 mL, Intracatheter, PRN, Other, peripheral line flush, Starting on Wed05/16/25 at 2217, Until Discontinued, Flush peripheral IV catheter with 1-10 mL of normal saline before and after medications and prn to clear blood from the line or to verify patency. acetaminophen (Tylenol) tablet 1,000 mg 1,000 mg, Oral, EVERY 6 HOURS PRN, Mild Pain, Moderate Pain, Starting on Wed05/16/25 at 2349, Until Discontinued, Patient preference for lesser PRN pain meds may be honored when the patient requests a less strong medication, a lower dose, or a less intrusive route of administration when the lesser drug, dose and route have been ordered for the patient. This patient request must be documented in the MAR. If both oral and IV options are ordered for the same pain severity, give oral first unless patient cannot tolerate oral intake. 0201 ($ Given - Provider: Delores Bocanegra RN) calcium carbonate (Tums) chew tablet 2 tablet 2 tablet, Oral, EVERY 6 HOURS PRN, Heartburn, Starting on Brandi 05/17/25 at 1323, Until Discontinued 1334 ($ Given - Provider: Abby Robbins RN) calcium gluconate 10 % injection 1 g 1 g, Intravenous, PRN, Magnesium overdose - 1g Intravenous Push over 3 minutes, PRN, Starting on Wed05/16/25 at 2219, Until Discontinued, Magnesium overdose - 1g Intravenous Push over 3 minutes, PRN Watch for signs and symptoms of Magnesium Sulfate toxicity: A) Magnesium Sulfate level greater than 7. B) Absence of reflexes. C) Respirations less than 12 per minute. ibuprofen (Motrin) tablet 600 mg 600 mg, Oral, EVERY 6 HOURS PRN, Mild Pain, Moderate Pain, Starting on Wed05/16/25 at 2348, Until Discontinued, Maximum allowable amount = 3200 mg / 24 hours. Patient preference for lesser PRN pain meds may be honored when the patient requests a less strong medication, a lower dose, or a less intrusive route of administration when the lesser drug, dose and route have been ordered for the patient. This patient request must be documented in the MAR. If both oral and IV options are ordered for the same pain severity, give oral first unless patient cannot tolerate oral intake. 0242 ($ Given - Provider: Delores Bocanegra RN)1440 ($ Given - Provider: Rhonda Jerry RN) labetalol (Normodyne; Trandate) injection 20 mg ()(Linked Group 2) 20 mg, Intravenous, ONCE PRN, Hypertension, see admin instructions, Starting on Wed05/16/25 at 2240, Until Brandi 05/17/25 at 0239, Initial Dose If systolic BP greater than or equal to 160 mmHg or diastolic BP greater than or equal to 110 mmHg for 15 minutes or more, administer labetalol 20 mg IV over 2 minutes. Repeat BP in 10 minutes. If BP remains elevated, see order for second labetalol dose. 2242 ($ Given - Provider: Belle Foreman RN) oxyCODONE (immediate release) (Roxicodone) tablet 5 mg 5 mg, Oral, EVERY 4 HOURS PRN, Severe Pain, Starting on Wed05/16/25 at 2349, Until Discontinued, Patient preference for lesser PRN pain meds may be honored when the patient requests a less strong medication, a lower dose, or a less intrusive route of administration when the lesser drug, dose and route have been ordered for the patient. This patient request must be documented in the MAR. If both oral and IV options are ordered for the same pain severity, give oral first unless patient cannot tolerate oral intake. 0853 ($ Given - Provider: Abby Robbins, SAL)1443 ($ Given - Provider: Abby Robbins, SAL) Linked Groups Order Group 1: SALINE LOCK, INSERT AND MAINTAIN Routine, CONTINUOUS, Starting on Wed05/16/25 at 2230, Until Specified, New collection And 0.9% NaCl injection 3 mLJump to med 3 mL, Intracatheter, EVERY 8 HOURS, First dose on Wed05/16/25 at 2300, Until Discontinued, Flush peripheral IV catheter with 3 mL of normal saline every 8 hours. And 0.9% NaCl injection 1-10 mLJump to med 1-10 mL, Intracatheter, PRN, Other, peripheral line flush, Starting on Wed05/16/25 at 2217, Until Discontinued, Flush peripheral IV catheter with 1-10 mL of normal saline before and after medications and prn to clear blood from the line or to verify patency. Group 2: labetalol (Normodyne; Trandate) injection 20 mg ()Jump to med 20 mg, Intravenous, ONCE PRN, Hypertension, see admin instructions, Starting on Wed05/16/25 at 2240, Until Brandi 05/17/25 at 0239, Initial Dose If systolic BP greater than or equal to 160 mmHg or diastolic BP greater than or equal to 110 mmHg for 15 minutes or more, administer labetalol 20 mg IV over 2 minutes. Repeat BP in 10 minutes. If BP remains elevated, see order for second labetalol dose. And labetalol (Normodyne; Trandate) injection 40 mg () 40 mg, Intravenous, ONCE PRN, Hypertension, see admin instructions, Starting on Wed05/16/25 at 2240, Until Brandi 05/17/25 at 0239, Second Dose If systolic BP greater than or equal to 160 mmHg or diastolic BP greater than or equal to 110 mmHg for 10 minutes after initial labetalol dose, administer labetalol 40 mg IV over 2 minutes. Repeat BP in 10 minutes. If BP remains elevated, see order for third labetalol dose. And labetalol (Normodyne; Trandate) injection 80 mg () 80 mg, Intravenous, ONCE PRN, Hypertension, see admin instructions, Starting on Wed05/16/25 at 2240, Until Brandi 05/17/25 at 0239, Third Dose If systolic BP greater than or equal to 160 mmHg or diastolic BP greater than or equal to 110 mmHg for 10 minutes after second labetalol dose, administer labetalol 80 mg IV over 2 minutes. Repeat BP in 10 minutes. If BP remains elevated, see order for hydralazine. And hydrALAZINE (Apresoline) injection 10 mg () 10 mg, Intravenous, ONCE PRN, Hypertension, see admin instructions, Starting on Wed05/16/25 at 2240, Until Brandi 05/17/25 at 0239, After Labetalol Completed. If systolic BP greater than or equal to 160 mmHg or diastolic BP greater than or equal to 110 mmHg 10 minutes after third labetalol dose, hydralazine 10 mg IV over 2 minutes. Repeat BP in 20 minutes. If BP remains elevated, contact provider urgently to obtain new orders documented in this encounter Care Teams Academic Services Professional Relationship Specialty Start Date End Date Tong Emanuel APRN-CNP [address] [place] [id number] PCP - Attributed-[employer] [place] 08/12/19 Tong Emanuel APRN-CNP [facility] [place] [id number] PCP - General Nurse Practitioner 04/11/25 documented as of this encounter
--- OUTSIDE RECORDS SUMMARY | 2025-05-17 15:31 | XMS_ITS | Clinical Summary ---
Author Organization [facility] [employer] Address [address] [place] [address] Care Team Providers Care Events Director Name Role Phone Tong Emanuel Unavailable [phone] Tong Emanuel Primary Care Provider Source Comments [facility] [employer],non-owned Affiliates and Associated Physician Practices is amultiple site organization consisting of ambulatory clinics and hospital sitesin [place], [place], [place] and [place]. This disclosure is being madepursuant to the Care Everywhere program and may not contain all information available regarding this patient. Last updated 18.[facility] [employer] Allergies No known active allergies Medications * Be aware that medications may not be up to date on this document. Alwaysverify current medications with the patient. Vit-Fe Fumarate-FA ( vitamin) 27-0.8 MG tablet 06/08/20 23 Suspended aspirin EC (Ecotrin) 81 MG tabletIndicat ions:preeclam psia prevention Take 1 (one) tablet by mouth once daily Reasons: preeclampsia prevention 90 tablet 3 12/22/19 25 Suspended Additional Information Patient not taking.Reason: Other, Informant: Other, Reported on 05/16/2025 ondansetron, disintegratin g, (Zofran ODT) 4 MG tablet Take 1 (one) tablet by mouth every 6 hours as needed for Nausea/Vomiting Allow tablet to dissolve on the tongue 30 tablet 1 04/11/20 25 025 Discontinued(R eorder) fluconazole (Diflucan) 150 MG tablet Take 1 (one) tablet by mouth once daily 1 tablet 04/18/20 Suspended ondansetron, disintegratin g, (Zofran ODT) 4 MG tablet Take 1 (one) tablet by mouth every 6 hours as needed for Nausea/Vomiting Allow tablet to dissolve on the tongue 30 tablet 1 04/18/20 Suspended acetaminophen -caffeine 500-65 MG tablet Take 2 (two) tablets by mouth every 6 hours as needed for Headache Do not exceed 4 tablets in 24 hours. Do not exceed 4g Acetaminophen/2 4 hours 30 tablet 1 04/18/20 Suspended ferrous sulfate 325 (65 FE) MG tabletIndicat ions:Iron Deficiency Anemia Take 1 (one) tablet by mouth once daily Reasons: Anemia From Inadequate Iron in the Body 100 tablet 2 04/30/20 Suspended docusate sodium (Colace) 100 MG capsule Take 1 (one) capsule by mouth once daily 50 capsule 1 5 11:35 AM CDT 05/11/20 25 025 Discontinued ferrous sulfate 325 (65 FE) MG tablet Take 1 (one) tablet by mouth once daily 60 tablet 2 11:35 AM CDT 05/11/20 025 Discontinued polyethylene glycol 3350 (Miralax) 17 GM/SCOOP powder Mix 17 grams of powder in liquid and drink once daily 238 g 5 11:35 AM CDT 05/11/20 025 Discontinued ibuprofen (Motrin) 600 MG tablet Take 1 (one) tablet by mouth every 6 hours as needed for Pain 50 tablet 1 5 11:35 AM CDT 05/11/20 25 025 Discontinued naloxone HCl (Narcan) 4 MG/0.1ML nasal spray Rogerson 1 (one) spray into the nose as needed (May repeat every 2 min in alternating nostrils until emergency medical help arrives for overdose) 05/11/20 025 Discontinued plus iron (Natatab) 29-1 MG tablet Take 1 (one) tablet by mouth once daily 100 tablet 1 5 11:35 AM CDT 05/11/20 25 025 Discontinued acetaminophen (Tylenol) 500 MG tablet Take 2 (two) tablets by mouth every 6 hours as needed for Fever or Pain 60 tablet 1 5 11:35 AM CDT 05/11/20 25 025 Discontinued norethindrone 0.35 MG tablet Take 1 (one) tablet by mouth once daily 28 tablet 2 5 11:35 AM CDT 05/11/20 25 Suspended oxyCODONE, immediate release, (Roxicodone) 5 MG tabletIndicat ions:History of section Take 1 (one) tablet by mouth every 4 hours as needed for Pain 12 tablet 05/11/20 25 025 Discontinued oxyCODONE, immediate release, (Roxicodone) 5 MG tabletIndicat ions:History of section Take 1 (one) tablet by mouth every 4 hours as needed for Pain 12 tablet 5 3:23 PM CDT 05/11/20 25 Suspended acetaminophen (Tylenol) 500 MG tablet Take 2 (two) tablets by mouth every 6 hours as needed for Fever or Pain 05/11/20 25 Suspended ibuprofen (Motrin) 600 MG tablet Take 1 (one) tablet by mouth every 6 hours as needed for Pain 50 tablet 1 05/11/20 25 Suspended naloxone HCl (Narcan) 4 MG/0.1ML nasal spray Rogerson 1 (one) spray into the nose as needed (May repeat every 2 min in alternating nostrils until emergency medical help arrives for overdose) 1 device 05/11/20 25 Suspended ferrous sulfate 325 (65 FE) MG tablet Take 1 (one) tablet by mouth once daily 60 tablet 2 05/11/20 25 Suspended docusate sodium (Colace) 100 MG capsule Take 1 (one) capsule by mouth once daily 50 capsule 1 05/11/20 25 Suspended polyethylene glycol 3350 (Miralax) 17 GM/SCOOP powder Mix 17 grams of powder in liquid and drink once daily 05/11/20 25 Suspended plus iron (Natatab) 29-1 MG tablet Take 1 (one) tablet by mouth once daily 100 tablet 1 05/11/20 25 Suspended Active Problems Patient Care Coordination No te Formatting of this note migh t be different from the original. [employer] form completed. Diapers given. 08/30/2023; 09/17/23; 10/11/23, 11/16/2023, 12/02/23PP, 01/03/2024, 02/16/25, 03/30/2025, 04/27/25 Problem Noted Date Diagnosed Date Elevated blood pressure reading 05/16/2025 Gestational hypertension, antepartum 05/16/2025 Nausea and vomiting, unspecified vomiting type 1 Encounter for supervision of low-risk in third trimester 03/30/2025 History of section 07/22/2023 Overview (03/07/2025): Hx CS x 4 - G1 for arrest dilation at [facility] per pt but no records in careeverywhere - G2 repeat in [place], [place] - G3 repeat at [facility] > op note requested - G5 scheduled repeat [facility]: Op note on 11/23/23 reviewed. Dense adhesions noted. No uterine window Assessment & Plan (11/16/2023 9:10 AM CDT): Rpt C/S scheduled for 11/29/23 Assessment & Plan (11/08/2023 2:40 PM CDT): - rCS scheduled 11/28 @ 0730. Preop instructions reviewed. Given Hibiclens and ERAS drink Assessment & Plan (08/30/2023 11:03 AM CYCLE COUNTER): Op note requested last visit, have not yet received Placenta eval and PAS assessment today via US Prelim: anterior placenta without previa Gestational hypertension affecting fifth pregnan cy Depression Resolved Problems Problem Noted Date Diagnosed Date Resolved Date hypertension 12/07/202312/10 Elevated blood pressure affe cting in third trimester, antepartum 11/23/2023 Overview (11/23/2023): New finding of elevated blood pressures today at 38.4 weeks Assessment & Plan (11/23/2023 8:44 AM CDT): New finding of elevated blood pressures today at 38.4 weeks. Discussed Plan of Care with Dr. Browning and her recommendation is delivery today. Pt sent to L&D for repeat c/s. Charge nurse made aware. Bacterial vaginosis in 11/08/2023 12/21/2024 Overview (11/08/2023): - [11/07]Exam consistent with BV. Rx for Flagyl 500 mg BID x 7 days sent to pharmacy on file - [facility] care guidelines reviewed. Assessment & Plan (11/16/2023 9:09 AM CDT): Still taking Flagyl Assessment & Plan (11/08/2023 2:44 PM CDT): - Exam consistent with BV. Rx for Flagyl 500 mg BID x 7 days sent to pharmacy on file - [facility] care guidelines reviewed. Uterine size-date discrepanc y in third trimester 10/11/2023 12/21/2024 Overview (11/08/2023): 10/11/23: measuring 37 cm at 32 weeks Add-On Growth u/s: EFW 1969 40%, AC 55%, PETER 21.0 11/04: EFW: 2694g (29%), AC 55%, PETER 19.4cm, cephalic F/U as clinically indicated Assessment & Plan (11/08/2023 2:42 PM CDT): US today: EFW: 2694g (29%), AC 55%, PETER 19.4cm, cephalic Assessment & Plan (10/11/2023 1:59 PM CDT): 10/11/23: measuring 37 cm at 32 weeks Add-On Growth u/s: EFW 1969 40%, AC 55%, PETER 21.0 F/U as clinically indicated Supervision of low-risk 07/22/2023 12/21/2024 Overview (11/12/2023): 1. Dating: L=11 2. PNL: A+/I/-/-, NR 3. Gc/Chl/trich: neg 4. Urine culture: +ecoli 5. UDS: not indicated 6. Hgb Elec: normal 7. Cystic Fibrosis: neg 8. NIPT: LR 9. Pap: NILM 02/2023 10. MOF: breast and bottle 11. MOC: IUD 12. MOD: rCS 13. EPDS: 2 14. PNVs: taking 15. Influenza vaccine: reports had with [facility] 16. COVID vaccine: reports had with [facility] 17. GCT: 86 18. T3 labs: NRx2/12.0 19. Tdap: given 20. GBS: neg 21. Anatomy US: complete, f/u as clinically indicated Assessment & Plan (11/08/2023 2:41 PM CDT): - PNC up to date - CC: pelvic pressure. Cervix , WEU return precautions reviewed. Assessment & Plan (09/17/2023 9:17 AM CYCLE COUNTER): Tdap given PNC up to date Assessment & Plan (08/30/2023 9:11 AM CYCLE COUNTER): Third trimester labs today Offer t-dap at follow up Anatomy completed, repeat growth AGA today CC: Vaginal odor, itching, discharge. GC/CT/Trich/BV/Yeast collected. Reviewed vaginal hygiene today CC: Round ligament pain: recommended maternity support belt, UTI (urinary tract infection) 07/22/2023 10/01/2023 Overview (09/17/2023): +Ecoli in first trimester s/p treatment per pt LORI negative 07/21 Encounters Date Type Department Care Team Description 05/16/2025 6:52 PM CYCLE COUNTER - Present Hospital Encounter [facility] 5E ANTEPARTUM/MOTHER BABY [address] [place] [address] Saadia Lanier MD 05/11/2025 Telephone [facility] at [address], [address] [place] [address] Annetta Reeves APRN-NEUROSURGERY RESEARCH DIRECTOR Coordination Of Care; Future Appointment 05/08/2025 11:59 PM CDT Anesthesia Event [facility] [address] [place] [address] Ashley Witt APRN-CRNA 05/08/2025 12:23 PM CDT Anesthesia Event [facility] [address] [place] [address] Vicente Fulton MD Dalske Gail Bhavin 05/08/2025 10:20 AM CDT - 05/08/2025 12:13 PM CDT Surgery [facility] [address] [place] [address] Arvind Lemons MD SECTION (REPEAT) 05/08/2025 9:10 AM CDT - 05/11/2025 4:37 PM CDT Hospital Encounter [facility] 6W MOTHER/BABY [address] [place] [address] Arvind Lemons MD Obstetrics Discharge Disposition: Home or Self Care 05/08/2025 Travel 04/30/2025 Orders Only [facility] MATERNAL/ EVALUATION UNIT [facility] [address] [place] [address] Shellie Dawkins APRN-NEUROSURGERY RESEARCH DIRECTOR 04/27/2025 11:32 AM CDT - 04/27/2025 11:59 PM CDT Hospital Encounter [facility] MATERNAL/ EVALUATION UNIT [facility] [address] [place] [address] Santiago Buitrago DO Serini, Megan L, APRN-NEUROSURGERY RESEARCH DIRECTOR Discharge Disposition: Home or Self Care 04/27/2025 11:15 AM CDT - 04/27/2025 11:31 AM CDT Hospital Encounter [facility] MATERNAL/ EVALUATION UNIT [facility] [address] [place] [address] Santiago Buitrago DO BUSINESS SYSTEMS ANALYST Discharge Disposition: Home or Self Care 04/27/2025 Travel 04/18/2025 1:30 PM CDT - 04/18/2025 11:59 PM CDT Hospital Encounter [facility] MATERNAL/ EVALUATION UNIT [facility] [place] [address] Abby Hendrix APRN-NEUROSURGERY RESEARCH DIRECTOR Discharge Disposition: Home or Self Care 04/18/2025 Travel 04/11/2025 9:01 AM CDT - 04/11/2025 2:11 PM CDT Hospital Encounter [facility] [address] [place] [address] Saadia Lanier MD Discharge Disposition: Home or Self Care 04/10/2025 Telephone [facility] MATERNAL/ EVALUATION UNIT [address] [place] [address] KevenisaacMary Lou owens Appointment 03/30/2025 10:03 AM CDT - 03/30/2025 11:59 PM CDT Hospital Encounter [facility] MATERNAL/ EVALUATION UNIT [address] [place] [address] Latosha Lemus MD Serini, Megan L, CITY LETTER CARRIER-NEUROSURGERY RESEARCH DIRECTOR Discharge Disposition: Home or Self Care 03/30/2025 10:03 AM CDT - 03/30/2025 11:59 PM CDT Hospital Encounter [facility] MATERNAL/ EVALUATION UNIT [facility] [address] [place] [address] Latosha Lemus MD Discharge Disposition: Home or Self Care 03/30/2025 Travel 03/20/2025 Telephone [facility] MATERNAL/ EVALUATION UNIT [facility] [place] [address] Jurgen Gege Scheduling 03/07/2025 10:30 AM CDT - 03/07/2025 11:59 PM CDT Hospital Encounter [facility] MATERNAL/ EVALUATION UNIT [facility] [place] [address] Arvind Lemons MD Discharge Disposition: Home or Self Care 03/07/2025 Travel 02/16/2025 9:05 AM CDT - 02/16/2025 11:59 PM CDT Hospital Encounter [facility] MATERNAL/ EVALUATION UNIT [facility] [place] [address] Arvind Lemons MD Mitchell, Melissa R, CITY LETTER CARRIER-NEUROSURGERY RESEARCH DIRECTOR Discharge Disposition: Home or Self Care 02/16/2025 9:00 AM CDT - 02/16/2025 9:04 AM CDT Hospital Encounter [facility] MATERNAL/ EVALUATION UNIT [address] [place] [address] Arvind Lemons MD Polcaro, Joseph, DO Wendel, Michael, MD Discharge Disposition: Home or Self Care 02/16/2025 Travel from Last 3 Months Immunizations Immunization Administration Dates Next Due MMR 11/24/2023() TDAP (7yrs+) 02/16/2025,11/24/2023(),09/17/19 Family History Medical History Relation Name Comments Other - Defects Neg Hx Social History Tobacco Use Types Packs/Day Years Used Date Smoking Tobacco: Never Smokeless Tobacco: Never Tobacco Cessation:Counseling Given: Not Answered Alcohol Use Standard Drinks/Week Comments Not Currently [...] place to sleep or slept in a prison (including now)? No 01/03/2024 [place] Depression Scale Answer Date Recorded [place] Depression Scale Total 0 05/11/2025 The thought [...] any time in the past 12 m [facility], were you homeless or living in a prison (including now)? No 04/11/2025 Overall Financial Resource Strain (CARDIA) Answe r Date Recorded How hard is it for you to pa y for the very basics like food, housing, medical care, and heating? Not hard at all 05/16/2025 [facility] [place] [facility] - Occupational Stress [...] any time in the past 12 m [facility], were you homeless or living in a prison (including now)? No 05/16/2025 Comments No Sex and Gender Information Value Date Recorded Sex Assigned at Female 05/16/2025 7:10 PM CYCLE COUNTER Legal Sex Female 5:34 AM CYCLE COUNTER Gender Identity Not on file Sexual Orientation Not on file Last Filed Vital Signs Vital Sign Reading Time Taken Comments Blood Pressure 147/96 05/17/2025 2:35 PM CYCLE COUNTER Pulse 109 05/17/2025 2:47 PM CYCLE COUNTER Temperature 37 C (98.6 F) 05/17/2025 1:05 PM CYCLE COUNTER Respiratory Rate 18 05/17/2025 1:05 PM CYCLE COUNTER Oxygen Saturation 100% 05/17/2025 2:47 PM CYCLE COUNTER Inhaled Oxygen Concentration - - Weight 79.4 kg (175 lb) 05/16/2025 10:55 PM CYCLE COUNTER Height 160 cm (5' 3) 05/16/2025 10:55 PM CYCLE COUNTER Body Mass Index 31 05/16/2025 10:55 PM CYCLE COUNTER Plan of Treatment Health Maintenance Due Date Last Done Comments HEPATITIS B VACCINE (1 of 3 - 19+ 3-dose series) 2009 HPV VACCINE (1 - 3-dose SCDM series) 2017 DIABETES RETINOPATHY SCREENING 06/30/2023 DIABETES-FOOT EXAM WITH MONOFILAMENT 06/30/2023 DIABETES-HGB A1C 06/30/2023 DEPRESSION SCREENING 07/12/2024 COVID-19 VACCINE ( season) 2025 INFLUENZA VACCINE (#1) 2025 05/07/2016, 2014 DIABETES - URINE PROTEIN SCREENING 04/27/2026 04/27/2025, 04/18/2025, 12/21/2024, Additional history exists DIABETES-SERUM CREATININE 05/17/20262024, 05/16/2025, 05/09/2025, Additional history exists PAP with HPV 12/21/2029 12/21/2024 DTAP/TDAP/TD VACCINES (3 - Td or Tdap) 02/16/2035 02/16/2025, 09/17/2023 ZOSTER VACCINE (1 of 2) 2040 HEPATITIS C SCREENING Completed 12/21/2024 HIV SCREENING Completed 02/16/2025, 12/10, 08/30/2023 HIB VACCINE Aged Out No longer eligi ble based on patient's age to complete this topic MENINGOCOCCAL (Group B) VACCINE SHARED DECISION-MAKING Aged Out No longer eligible based on patient's age to complete this topic MENINGOCOCCAL GROUPS A/C/Y/W VACCINE Aged Out No longer eligible based on patient's age to complete this topic PNEUMOCOCCAL VACCINE Aged Out No long er eligible based on patient's age to complete this topic Procedures * The patient is currently admitted. The information in this section might not be complete until the patient is discharged. Procedure Name Priority Date/Time Associated Diagnosis Comments COMPREHENSIVE METABOLIC PANEL Routine 05/17/2025 7:10 AM CYCLE COUNTER CBC W/O DIFFERENTIAL Routine 05/17/2025 7:10 AM CYCLE COUNTER COMPREHENSIVE METABOLIC PANEL STAT 05/16/2025 7:26 PM CYCLE COUNTER Gestational hypertension, antepartum (HCC) CBC W AUTO DIFFERENTIAL STAT 05/16/2025 7:26 PM CYCLE COUNTER Gestational hypertension, antepartum (HCC) IMAGING/RADIOLOGY/XRAY RESULTS ORDER 05/14/2025 9:54 PM CYCLE COUNTER CBC W/O DIFFERENTIAL AM Draw 05/09/2025 3:19 AM CDT COMPREHENSIVE METABOLIC PANEL Routine 05/09/2025 3:19 AM CDT BLOOD GASES CORD LUCIANA (ISTAT) Routine 05/08/2025 1:26 PM CDT BLOOD GASES CORD ART (ISTAT) Routine 05/08/2025 1:21 PM CDT NEURAXIAL BLOCK Routine 05/08/2025 12:46 PM CDT SECTION (REPEAT) 05/08/2025 12:13 PM CDT Delivery with history of (HCC) COMPREHENSIVE METABOLIC PANEL STAT 05/08/2025 9:38 AM CDT PREPARE RBC LEUKOREDUCED UNIT Routine 05/08/2025 9:37 AM CDT ANTIBODY IDENTIFICATION Routine 05/08/2025 9:37 AM CDT TYPE + SCREEN PANEL STAT 05/08/2025 9:37 AM CDT SYPHILIS ANTIBODY CASCADING REFLEX STAT 05/08/2025 9:37 AM CDT CBC W AUTO DIFFERENTIAL STAT 05/08/2025 9:37 AM CDT PROTEIN CREATININE RATIO URINE RANDOM PNL Routine 04/27/2025 12:22 PM CDT Encounter for supervision of low-risk in third trimester ([facility]) CBC W AUTO DIFFERENTIAL STAT 04/27/2025 12:22 PM CDT Encounter for supervision of low-risk in third trimester ([facility]) COMPREHENSIVE METABOLIC PANEL Routine 04/27/2025 12:22 PM CDT Encounter for supervision of low-risk in third trimester ([facility]) CULTURE URINE Routine 04/27/2025 12:22 PM CDT Encounter for supervision of low-risk in third trimester ([facility]) SONOGRAM - COMPLETE Routine 04/27/2025 1 1:45 AM CDT Gestational hypertension affecting fifth (HCC) Encounter for supervision of low-risk in third trimester ([facility]) WET PREP SMEAR - POINT OF CARE (IP) Routine 04/18/2025 2:45 PM CDT Vaginal candidiasis PROTEIN CREATININE RATIO URINE RANDOM PNL Routine 04/18/2025 2:26 PM CDT Encounter for supervision of low-risk in third trimester ([facility]) URINALYSIS REFLEX TO MICROSCOPIC NO CULTURE Routine 04/18/2025 2:26 PM CDT Encounter for supervision of low-risk in third trimester ([facility]) COMPREHENSIVE METABOLIC PANEL Routine 04/18/2025 2:26 PM CDT Encounter for supervision of low-risk in third trimester ([facility]) CBC W AUTO DIFFERENTIAL Routine 04/18/2025 2:26 PM CDT Encounter for supervision of low-risk in third trimester ([facility]) TRICHOMONAS VAGINALIS TEO Routine 04/18/2025 2:26 PM CDT Encounter for supervision of low-risk in third trimester ([facility]) CHLAMYDIA AND N. GONORRHOEAE TEO Routine 04/18/2025 2:26 PM CDT Encounter for supervision of low-risk in third trimester ([facility]) CULTURE URINE Routine 04/18/2025 2:26 PM CDT Encounter for supervision of low-risk in third trimester ([facility]) CULTURE STREP B Routine 04/18/2025 2:26 PM CDT Encounter for supervision of low-risk in third trimester ([facility]) PHOSPHORUS BLOOD STAT 04/11/2025 1:08 PM CDT Nausea and vomiting, unspecified vomiting type MAGNESIUM BLOOD STAT 04/11/2025 1:08 PM CDT Nausea and vomiting, unspecified vomiting type COMPREHENSIVE METABOLIC PANEL STAT 04/11/2025 1:08 PM CDT Nausea and vomiting, unspecified vomiting type URINALYSIS REFLEX MICROSCOPIC REFLEX CULTURE Routine 04/11/2025 10:03 AM CDT Nausea and vomiting, unspecified vomiting type CULTURE URINE Routine 04/11/2025 10:03 AM CDT Nausea and vomiting, unspecified vomiting type NONSTRESS TEST Routine 04/11/2025 9:55 AM CDT SONOGRAM - COMPLETE Routine 03/30/2025 1 1:00 AM CDT Encounter for ultrasound to assess growth ([facility]) CULTURE URINE Routine 03/07/2025 10:58 AM CDT Sickle cell trait GLUCOSE CHALLENGE Routine 02/16/2025 10: 20 AM CDT Supervision of normal intrauterine in multigravida in second trimester ([facility]) FERRITIN Routine 02/16/2025 10:20 AM CDT Supervision of normal intrauterine in multigravida in second trimester ([facility]) SYPHILIS ANTIBODY CASCADING REFLEX Routine 02/16/2025 9:51 AM CDT Supervision of normal intrauterine in multigravida in second trimester ([facility]) HIV-1 HIV-2 ANTIBODY + HIV P24 AG PANEL Routine 02/16/2025 9:51 AM CDT Supervision of normal intrauterine in multigravida in second trimester ([facility]) CBC W AUTO DIFFERENTIAL Routine 02/16/2025 9:51 AM CDT Supervision of normal intrauterine in multigravida in second trimester ([facility]) SONOGRAM - COMPLETE Routine 02/16/2025 9 :04 AM CDT Encounter for ultrasound to assess growth ([facility]) PAP IG LB+HPV APTIMA Routine 12/21/2024 11:36 AM CDT Normal in multigravida in second trimester ([facility]) HEPATITIS C ANTIBODY Routine 12/21/2024 11:35 AM CDT Normal in multigravida in second trimester ([facility]) from Last 3 Months or Most Recently Relevant to Health Maintenance Results * (ABNORMAL) CBC W/O DIFFERENTIAL (05/17/2025 7:10 AM CYCLE COUNTER) Only the most recent of2 resultswithin the time period is included. WBC 8.3 4.0 - 10.7 x10E9/L 05/17/2025 7:20 AM CYCLE COUNTER [facility] RBC Count 4.03 3.90 - 5.20 x10E12/L 05/17/2025 7:20 AM CYCLE COUNTER [facility] Hemoglobin 10.6(L) 11.9 - 15.8 g/dL 05/17/2025 7:20 AM CYCLE COUNTER [facility] Hematocrit 31.7(L) 34.8 - 46.1 % 05/17/2025 7:20 AM CYCLE COUNTER [facility] MCV 78.7(L) 80.0 - 98.0 fL 05/17/2025 7:20 AM [facility] MCH 26.3(L) 26.7 - 33.6 pg 05/17/2025 7:20 AM [facility] MCHC 33.4 31.7 - 36.3 g/dL 05/17/2025 7:20 AM [facility] RDW-CV 14.1 11.3 - 14.8 % 05/17/2025 7:20 AM [facility] Platelet Count 338 150 - 420 x10E9/L 05/17/2025 7:20 AM [facility] MPV 10.7 7.8 - 11.4 fL 05/17/2025 7:20 AM [facility] Blood BLOOD SPECIMEN / Unknown Lab Venipuncture / Unknown 05/17/2025 7:10 AM CYCLE COUNTER 05/17/2025 7:16 AM [facility] Saadia Lanier MD LAB - HEMATOLOGY ORDERABLES Lorrie larose Result [facility] [address] [place] [address] * (ABNORMAL) COMPREHENSIVE METABOLIC PANEL (05/17/2025 7:10 AM [facility]) Only the most recent of7 resultswithin the time period is included. [facility] Signature Glucose 93 70 - 99 mg/dL 05/17/2025 7:39 AM [facility] Sodium 139 136 - 145 mmol/L 05/17/2025 7:39 AM [facility] Potassium 3.9 3.5 - 5.1 mmol/L 05/17/2025 7:39 AM [facility] Chloride 111(H) 98 - 107 mmol/L 05/17/2025 7:39 AM [facility] CO2 21(L) 22 - 29 mmol/L 05/17/2025 7:39 AM [facility] Calcium 7.9(L) 8.4 - 10.4 mg/dL 05/17/2025 7:39 AM [facility] Anion Gap 7 6 - 16 mmol/L 05/17/2025 7:39 AM [facility] BUN 8 5.3 - 18.7 mg/dL 05/17/2025 7:39 AM [facility] Creatinine 0.59 0.50 - 1.00 mg/dL 05/17/2025 7:39 AM [facility] Alkaline Phosphatase 78 40 - 150 U/L 05/17/2025 7:39 AM [facility] ALT 9 6 - 57 U/L 05/17/2025 7:39 AM [facility] AST 17 10 - 48 U/L 05/17/2025 7:39 AM [facility] Protein Total 6.3(L) 6.4 - 8.3 gm/dL 05/17/2025 7:39 AM [facility] Albumin 2.9(L) 3.1 - 4.5 gm/dL 05/17/2025 7:39 AM [facility] Bilirubin Total 0.2 0.2 - 1.2 mg/dL 05/17/2025 7:39 AM [facility] eGFR by CKD-EPI >90 >=90 mL/min/1.7 3 m2 05/17/2025 7:39 AM [facility] Comment:Estimated Glomerular Filtration Rate (eGFR) calculated using the CKD-EPI Creatinine Equation (2020), per the National Kidney Foundation and [place] [employer]ph[employer] recommendations. Blood BLOOD SPECIMEN / Unknown Lab Venipuncture / Unknown 05/17/2025 7:10 AM CYCLE COUNTER 05/17/2025 7:16 AM CYCLE COUNTER us Saadia Lanier MD LAB - CHEMISTRY ORDERABLES Final Result Performing Organization Address City/State/[facility] Co de Phone Number [facility] [address], [place] [id number] * (ABNORMAL) CBC W AUTO DIFFERENTIAL (05/16/2025 7:26 PM CYCLE COUNTER) Only the most recent of5 resultswithin the time period is included. WBC 7.2 4.0 - 10.7 x10E9/L 05/16/2025 7:45 PM [facility] RBC Count 3.93 3.90 - 5.20 x10E12/L 05/16/2025 7:45 PM [facility] Hemoglobin 10.4(L) 11.9 - 15.8 g/dL 05/16/2025 7:45 PM [facility] Hematocrit 31.2(L) 34.8 - 46.1 % 05/16/2025 7:45 PM [facility] MCV 79.4(L) 80.0 - 98.0 fL 05/16/2025 7:45 PM [facility] MCH 26.5(L) 26.7 - 33.6 pg 05/16/2025 7:45 PM [facility] MCHC 33.3 31.7 - 36.3 g/dL 05/16/2025 7:45 PM [facility] RDW-CV 14.0 11.3 - 14.8 % 05/16/2025 7:45 PM [facility] Platelet Count 348 150 - 420 x10E9/L 05/16/2025 7:45 PM [facility] MPV 11.1 7.8 - 11.4 fL 05/16/2025 7:45 PM [facility] Neutrophil % 62.3 41.0 - 74.0 % 05/16/2025 7:45 PM [facility] Lymphocyte % 27.4 17.0 - 47.0 % 05/16/2025 7:45 PM [facility] Monocyte % 7.5 3.0 - 11.0 % 05/16/2025 7:45 PM [facility] Eosinophil % 1.9 0.0 - 7.0 % 05/16/2025 7:45 PM [facility] Basophil % 0.3 0.0 - 1.6 % 05/16/2025 7:45 PM [facility] Immature Granulocytes % 0.6 0.0 - 1.0 % 05/16/2025 7:45 PM [facility] Neutrophil Absolute 4.49 1.60 - 7.50 x10E9/L 05/16/2025 7:45 PM [facility] Lymphocyte Absolute 1.97 1.00 - 4.40 x10E9/L 05/16/2025 7:45 PM [facility] Monocyte Absolute 0.54 0.15 - 1.00 x10E9/L 05/16/2025 7:45 PM [facility] Eosinophil Absolute 0.14 0.00 - 0.60 x10E9/L 05/16/2025 7:45 PM CYCLE COUNTER [facility] Basophil Absolute 0.02 0.00 - 0.13 x10E9/L 05/16/2025 7:45 PM CYCLE COUNTER [facility] Blood BLOOD SPECIMEN / Unknown Venipuncture / Unknown 05/16/2025 7:26 PM CYCLE COUNTER 05/16/2025 7:42 PM CYCLE COUNTER us Saadia Lanier MD LAB - HEMATOLOGY ORDERABLES Lorrie larose Result [facility] [address] [place] [address] * IMAGING/RADIOLOGY/XRAY RESULTS ORDER (05/14/2025 9:54 PM CYCLE COUNTER) Anatomical Region Laterality Modality Other Narrative 05/14/2025 9:54 PM CYCLE COUNTER Ordered by an unspecified provider. us Scanned Document IMAGING Final Result * (ABNORMAL) BLOOD GASES CORD LUCIANA (ISTAT) (05/08/2025 1:26 PM CDT) pH Cord Venous POCT 7.15(L) 7.28 - 7.40 pH 05/08/2025 1:34 PM CDT [facility] pCO2 Cord Venous POCT 52.2(H) 35 - 45 mm hg 05/08/2025 1:34 PM CDT [facility] pO2 Cord Venous POCT 21(L) 22 - 33 mm hg 05/08/2025 1:34 PM CDT [facility] HCO3 Cord Arterial POCT 18.3(L) 22 - 24 mmol/L 05/08/2025 1:34 PM CDT [facility] BE Cord Venous POCT Calc -11(L) -6.4 - 1.6 mmol/L 05/08/2025 1:34 PM CDT [facility] TCO2 Cord Venous POCT 20(L) 22 - 30 mmol/L 05/08/2025 1:34 PM CDT [facility] O2 Saturation % Cord Venous Calc POCT 23 % 05/08/2025 1:34 PM CDT [facility] Site CORD LUCIANA 05/08/2025 1:34 PM CDT [facility] Sample iSTAT CORD LUCIANA 05/08/2025 1:34 PM CDT [facility] Blood CORD BLOOD SPECIMEN / Unknown 05/08/2025 1:26 PM CDT 05/08/2025 1:34 PM CDT Arvind Lemons MD LAB - POINT OF CARE ORDERABLES F inal Result Performing Organization Address City/[facility]/ZIP Co de Phone Number [facility] [address] [place] [address] * (ABNORMAL) BLOOD GASES CORD ART (ISTAT) (05/08/2025 1:21 PM CDT) pH Cord Arterial POCT 7.04(LL) 7.20 - 7.34 pH 05/08/2025 1:34 PM CDT [facility] pCO2 Cord Arterial POCT 70.8(HH) 45 - 55 mm hg 05/08/2025 1:34 PM CDT [facility] pO2 Cord Arterial POCT <15 12 - 25 mm hg 05/08/2025 1:34 PM CDT [facility] HCO3 Cord Arterial POCT 19.3(L) 22 - 24 mmol/L 05/08/2025 1:34 PM CDT [facility] BE Cord Arterial POCT -13(L) -2.9 - 8.3 mmol/L 05/08/2025 1:34 PM CDT [facility] TCO2 Cord Arterial POCT 21 mmol/L 05/08/2025 1:34 PM CDT [facility] O2 Saturation Cord Art % Calc POCT 8 % 05/08/2025 1:34 PM CDT [facility] Site CORD ART 05/08/2025 1:34 PM CDT [facility] Sample iSTAT CORD ART 05/08/2025 1:34 PM CDT [facility] Blood CORD BLOOD SPECIMEN / Unknown 05/08/2025 1:21 PM CDT 05/08/2025 1:34 PM CDT Arvind Lemons MD LAB - POINT OF CARE ORDERABLES F inal Result Performing Organization Address City/[facility]/ZIP Co de Phone Number [facility] [address] [place], [place] [id number] [phone] * Neuraxial Block (05/08/2025 12:46 PM CDT) Narrative Lucho, Steafni ADDIS Delcid - 05/08/2025 12:46 PM CDT LuchoStefani powersADDIS 05/08/2025 2:57 PM Neuraxial Block Note Pre-Procedure: Procedure Name: Neuraxial Block Patient Location: OB Indications: surgical anesthesia Pre-Anesthetic Checklist: Patient identified, IV Checked, Risks and benefits discussed, Surgical consent verified, Monitors and equipment, Site examined, Pre-op evaluation done, Time-out performed, Informed consent obtained, Questions answered/anesthesia questions answered and Allergies reviewed Anticoagulation/ Anti-thrombosis status confirmed? Yes Monitors: BP and continuous pluse ox Patient Condition: awake Patient Sedated? No Procedure: Block Type: Spinal Prep: Betadine Sterile Field: mask, cap/hat, sterile established and sterile gloves Approach: midline Skin was localized? Yes Spinal Block: Is this procedure for postop pain? Yes Reason: anticipated postoperative pain Diagnosis: labor Needle Type: spinal needle Needle Gauge: 24 Needle Length: 127 mm Placement Site: L3-4 Number of Attempts: 1 CSF: free flow, aspiration before injection, aspiration during injection, aspiration after injection Degree of difficulty: none Procedure Tolerance: tolerated well Sensory Level: T5 Motor Blockade: Yes Position post procedure: left uterine displacement Vital Signs: Vital signs monitored and stable throughout. See anesthesia record for details. Start Time: 05/08/2025 12:27 PM End Time: 05/08/2025 12:30 PM Total Time: 3 Staff: Anesthesia Provider: Ashley Witt APRN-CRNA Provider #1: Gail Maldonado - performed the procedure us Vicente Fulton MD GENERAL ANESTHESIA ORDERABL ES Edited Result - Final * SYPHILIS ANTIBODY CASCADING REFLEX (05/08/2025 9:37 AM CDT) Only the most recent of2 resultswithin the time period is included. Treponema pallidum Antibody Non Reactive Non Reactive 05/08/2025 10:18 AM CDT [facility] Comment: No Laboratory evidence of syphilis infection. Note: Circulating antibodies may be low or undetectable in early infection. If recent exposure is suspected, re-draw sample in 2-4 weeks and repeat testing. Blood BLOOD SPECIMEN / Unknown Venipuncture / Unknown 05/08/2025 9:37 AM CDT 05/08/2025 9:42 AM CDT Arvind Lemons MD LAB - SEROLOGY ORDERABLES Final Result Performing Organization Address City/[facility]/ZIP Co de Phone Number [facility] [address] [place] [address] * PREPARE (CROSSMATCH) RBC UNIT(S), 2 Units (05/08/2025 9:37 AM CDT) Unit Description AS1 LR PRBC [facility] Unit ABO A [facility] Unit Rh POS [facility] Product [facility] R02 [facility] Unit Donor # [id number] [facility] Unit Status released [facility] Product [facility] [id number] [facility] Blood Type Barcode 6200 [facility]piration Date S [facility] Unit Description AS1 LR PRBC [facility] Unit ABO A [facility] Unit Rh POS [facility] Product [facility] R02 [facility] Unit Donor # [id number] [facility] Unit Status released [facility] Product [facility] [id number] [facility] Blood Type Barcode 6200 [facility] Expiration Date S [facility] Blood Bank BLOOD SPECIMEN / Unknown 05/08/2025 9:37 AM CDT 05/08/2025 9:42 AM CDT Arvind Leomns MD LAB - BLOOD BANK ORDERABLES Lorrie l Result Performing Organization Address City/[facility]/ZIP Co de Phone Number [facility] [address] [place] [address] * TYPE + SCREEN PANEL (All [facility]) (05/08/2025 9:37 AM CDT) ABO Rh A POS 05/08/2025 11:20 AM CDT [facility] Comment:History checked. Antibody Screen POS 11:20 AM CDT [facility] Blood Bank BLOOD SPECIMEN / Unknown Venipuncture / Unknown 05/08/2025 9:37 AM CDT 05/08/2025 9:42 AM CDT Arvind Lemons MD LAB - BLOOD BANK ORDERABLES Lorrie l Result Performing Organization Address [facility] Co de Phone Number [facility] [address] [place] [address] * ANTIBODY IDENTIFICATION (05/08/2025 9:37 AM CDT) Antibody 1 POS, Ab of Undetermined Specificity 05/08/2025 11:24 AM CDT [facility] Blood Bank BLOOD SPECIMEN / Unknown Venipuncture / Unknown 05/08/2025 9:37 AM CDT 05/08/2025 9:42 AM CDT Arvind Lemons MD LAB - BLOOD BANK ORDERABLES Lorrie l Result Performing Organization Address [facility] de Phone Number [facility] [address] [place] [address] * CULTURE URINE (04/27/2025 12:22 PM CDT) Only the most recent of4 resultswithin the time period is included. Culture Urine <10,000 CFU/mL urogenital akash EVERARDO 04/28/2025 11:53 PM CDT [facility] Urine URINE SPECIMEN OBTAINED BY CLEAN CATCH PROCEDURE / Unknown Collection / Unknown 04/27/2025 12:22 PM CDT 04/27/2025 12:59 PM CDT Shellie Dawkins [place] LETTER CARRIER-NEUROSURGERY RESEARCH DIRECTOR LAB - MICROBIOLOGY ORDER GIDEON Final Result Performing Organization Address City/[facility] Co de Phone Number [facility] [address] [place], [place] [address] [phone] * PROTEIN CREATININE RATIO URINE RANDOM PNL (04/27/2025 12:22 PM CDT) Only the most recent of2 resultswithin the time period is included. Protein Urine 6.9 <11.9 mg/dL 04/27/2025 1:26 PM CDT [facility] Creatinine Urine 81.31 mg/dL 04/27/2025 1:26 PM CDT [facility] Protein/Creatin ine Ratio Urine 0.08 04/27/2025 1:26 PM CDT [facility] Urine URINE SPECIMEN OBTAINED BY CLEAN CATCH PROCEDURE / Unknown Collection / Unknown 04/27/2025 12:22 PM CDT 04/27/2025 12:59 PM CDT us Shellie Dawkins [place] LETTER CARRIER-NEUROSURGERY RESEARCH DIRECTOR LAB - URINE CHEMISTRY OR DERABLES Final Result Performing Organization Address City/State/[facility] Co de Phone Number [facility] [address] [place] [address] * Sonogram - Complete (04/27/2025 11:45 AM CDT) Only the most recent of3 resultswithin the time period is included. Pathologist [facility] Linked Results Indication ======== Encounter for ultrasound to assess growth Short interval Late care History ====== OB History 6. Para 4 [id number] 1. live 2012. Details: delivery 2. live 2014. Details: delivery 3. live 2019. Details: delivery 4. elective termination 2020 5. live 2023. Details: delivery Lab Tests Test Date Result NIPT Low risk Maternal Assessment Physical Exam Height 157 cm, 5 ft 2 in. Weight 81 kg, 179 lb. Initial weight 73 kg, 160 lb. BMI 32.74 kg/m . Initial BMI 29.26 kg/m . Weight gain 9 kg, 19 lb Method ====== Transabdominal ultrasound. View: Sufficient ========= Fernandez . Number of fetuses: 1 Dating ====== Date Details Gest. age ADELE LMP 08/08/2024 Cycle: regular cycle 37 w + 3 d 05/15/2025 Stated ADELE 37 w + 3 d 05/15/2025 U/S 04/27/2025 based upon AC, BPD, Femur, HC 37 w + 2 d 05/16/2025 Assigned dating based on the LMP, selected on 12/21/2024 37 w + 3 d 05/15/2025 General Evaluation Cardiac activity present. FHR 159 bpm. Presentation: cephalic Placenta: Placental site: posterior Amniotic fluid: Amount of AF: normal. MVP 7.7 cm. PETER 21.2 cm. Q1 7.7 cm, Q2 5.7 cm, Q3 2.7 cm, Q4 5.1 cm Biometry BPD 90.1 mm 36w 3d 42% Hadlock HC 340.2 mm 39w 1d 68% Hadlock AC 323.5 mm 36w 2d 32% Hadlock Femur 72.4 mm 37w 0d 41% Hadlock Humerus 62.3 mm 36w 0d 48% González HC / AC 1.05 Weight Calculation: EFW 3,037 g 42% Hadlock EFW (lb,oz) 6 lb 11 oz EFW by Hadlock ([id number]) appropriate Growth Overview Exam date GA BPD (mm) HC (mm) AC (mm) FL (mm) HL (mm) EFW (g) 12/21/2024 19w 2d 43.6 46% 163.2 32% 137.1 40% 30.8 53% 29.2 60% 285 45% 01/17/2025 23w 1d 53.6 16% 208.2 26% 179.9 32% 42.1 58% 41.5 91% 568 43% 02/16/2025 27w 3d 67 25% 255.8 32% 237.6 62% 51.4 36% 46.7 47% 1124 51% 03/30/2025 33w 3d 82.1 32% 311.5 50% 284.8 25% 65.2 44% 57 52% 2123 33% 04/27/2025 37w 3d 90.1 42% 340.2 68% 323.5 32% 72.4 41% 62.3 48% 3037 42% Anatomy The following structures appear normal: Abdomen Stomach. Kidneys. Bladder. Impression ========= Single, live, intrauterine at 37w 3d The size is appropriate. The amniotic fluid volume is normal. No major malformations were seen within the limitations of ultrasound Comment ======== ultrasound alone cannot detect all structural, genetic, or functional , placental, or maternal abnormalities Follow-up ======== Follow up exams as clinically indicated. Coding ====== Diagnoses O09.33: Supervision of with insufficient care O09.293: Supervision of with other poor reproductive or obstetric history Z36.89: Encounter for other specified screening Procedures 97242: US Preg Uterus Follow Up [facility] [employer] PACS Anatomical Region Laterality Modality Other 04/27/2025 11:4 5 AM CDT us Meg Betancur MD [facility] ORDERABLES Edited Resul t - Final * (ABNORMAL) WET PREP SMEAR - POINT OF CARE (IP) (04/18/2025 2:45 PM CDT) Clue Cells (Wet Smear) Absent Absent [facility] POCT TESTING Yeast (Wet Smear) Present(A) Absent [facility] POCT TESTING Trichomonas Wet Prep POCT Absent Absent [facility] POCT TESTING WBC (Wet Smear) Absent Absent [facility] POCT TESTING pH Wet Smear [facility] PO CT TESTING Other VAGINAL SWAB / Unknown 04/18/2025 2:45 PM CDT Kathy Morin [place] LETTER CARRIER-NEUROSURGERY RESEARCH DIRECTOR LAB - POINT OF CARE O RDERABLES Final Result [facility] POCT TESTING [address] [place] [address] * TRICHOMONAS VAGINALIS TEO (04/18/2025 2:26 PM CDT) Trichomonas by TEO NEGATIVE NEGATIVE 04/19/2025 7:23 AM CDT [facility] Microbiology ENTIRE VAGINA / Unknown Collection / Unknown 04/18/2025 2:26 PM CDT 04/18/2025 4:17 PM CDT Narrative [facility] - 04/19/2025 7:23 AM CDT This test performed by Qualitative real-time Polymerase Chain Reaction (PCR). Kathy Morin [facility] - MICROBIOLOGY OR DERABLES Final Result Performing Organization Address [facility]/ZIP Co de Phone Number [facility] [address] [place] [address], [facility] [phone] * CHLAMYDIA AND N. GONORRHOEAE TEO (04/18/2025 2:26 PM CDT) Chlamydia by TEO NEGATIVE NEGATIVE 04/19/2025 7:23 AM CDT [facility] Neisseria gonorrhoeae TEO NEGATIVE NEGATIVE 04/19/2025 7:23 AM CDT [facility] Microbiology ENTIRE VAGINA / Unknown Collection / Unknown 04/18/2025 2:26 PM CDT 04/18/2025 4:17 PM CDT [facility] - 04/19/2025 7:23 AM CDT This test performed by Qualitative real-time Polymerase Chain Reaction (PCR). Kathy Morin [facility] - MICROBIOLOGY OR DERABLES Final Result Performing Organization Address City/[facility]/ZIP Co de Phone Number [facility] [address] [place] [address], [facility] [phone] * (ABNORMAL) URINALYSIS REFLEX TO MICROSCOPIC NO CULTURE (04/18/2025 2:26 PM CDT) Color UA Yellow Yellow, Straw 04/18/2025 4:27 PM CDT [facility] Clarity UA Turbid(A) Clear 04/18/2025 4:27 PM CDT [facility] Glucose UA Normal Normal 04/18/2025 4:27 PM CDT [facility] Bilirubin UA Negative Negative 04/18/2025 4:27 PM CDT [facility] Ketone UA Negative Negative 04/18/2025 4:27 PM CDT [facility] Specific [place] UA 1.018 1.005 - 1.030 04/18/2025 4:27 PM CDT [facility] Blood UA Negative Negative 04/18/2025 4:27 PM CDT [facility] pH UA 6.0 5.0 - 8.0 04/18/2025 4:27 PM CDT [facility] Protein UA Trace(A) Negative 04/18/2025 4:27 PM CDT [facility] Urobilinogen UA Normal Normal mg/dL 04/18/2025 4:27 PM CDT [facility] Nitrite UA Negative Negative 04/18/2025 4:27 PM CDT [facility] Leukocyte Esterase UA 250 YAJAIRA/uL(A) Negative 04/18/2025 4:27 PM CDT [facility] RBC UA 6-10(A) 0 - 5 # /hpf 04/18/2025 4:27 PM CDT [facility] WBC UA 21-50(A) 0 - 5 # /hpf 04/18/2025 4:27 PM CDT [facility] Bacteria UA 2+(A) None Seen 04/18/2025 4:27 PM CDT [facility] Squamous Epithelial Cells 6-10(A) 0 - 5 /hpf 04/18/2025 4:27 PM CDT [facility] Hyaline Casts 0-2 0 - 2 /LPF 04/18/2025 4:27 PM CDT [facility] Urine URINE SPECIMEN OBTAINED BY CLEAN CATCH PROCEDURE / Unknown Collection / Unknown 04/18/2025 2:26 PM CDT 04/18/2025 4:16 PM CDT us Kathy Morin [place] LETTER CARRIER-NEUROSURGERY RESEARCH DIRECTOR LAB - URINALYSIS ORDE ELMA Final Result [facility] [address] [place], [place] [id number] * CULTURE STREP B (04/18/2025 2:26 PM CDT) Culture Strep B Negative for beta-hemolytic Streptococcus Group B EVERARDO 04/21/2025 9:48 PM CDT [facility] Microbiology MISCELLANEOUS SAMPLES / Unknown Collection / Unknown 04/18/2025 2:26 PM CDT 04/18/2025 4:17 PM CDT Kathy Morin [place] LETTER CARRIER-NEUROSURGERY RESEARCH DIRECTOR LAB - MICROBIOLOGY OR DERABLES Final Result [facility] [address] [place] [address], [facility] [phone] * PHOSPHORUS BLOOD (04/11/2025 1:08 PM CDT) Phosphorus 3.2 2.5 - 4.5 mg/dL 04/11/2025 1:36 PM CDT [facility] Blood BLOOD SPECIMEN / Unknown Venipuncture / Unknown 04/11/2025 1:08 PM CDT 04/11/2025 1:12 PM CDT Saadia Lanier MD LAB - CHEMISTRY ORDERABLES Final Result Performing Organization Address [facility] Co de Phone Number [facility] [address] [place] [phone] * MAGNESIUM BLOOD (04/11/2025 1:08 PM CDT) Magnesium 1.7 1.6 - 2.6 mg/dL 04/11/2025 1:36 PM CDT [facility] Blood BLOOD SPECIMEN / Unknown Venipuncture / Unknown 04/11/2025 1:08 PM CDT 04/11/2025 1:12 PM CDT Saadia Lanier MD LAB - CHEMISTRY ORDERABLES Final Result Performing Organization Address [facility] Co de Phone Number [facility] [address] [place] [phone] * (ABNORMAL) URINALYSIS REFLEX MICROSCOPIC REFLEX CULTURE (04/11/2025 10:03 AM [facility]) Color UA Yellow Yellow, Straw 04/11/2025 10:14 AM [facility] Clarity UA Clear Clear 04/11/2025 10:14 AM [facility] Glucose UA Normal Normal 04/11/2025 10:14 AM [facility] Bilirubin UA Negative Negative 04/11/2025 10:14 AM [facility] Ketone UA 1+(A) Negative 04/11/2025 10:14 AM [facility] Specific [place] UA 1.013 1.005 - 1.030 04/11/2025 10:14 AM [facility] Blood UA Negative Negative 04/11/2025 10:14 AM [facility] pH UA 6.5 5.0 - 8.0 04/11/2025 10:14 AM [facility] Protein UA Negative Negative 04/11/2025 10:14 AM [facility] Urobilinogen UA Normal Normal mg/dL 04/11/2025 10:14 AM [facility] Nitrite UA Negative Negative 04/11/2025 10:14 AM [facility] Leukocyte Esterase UA 25 YAJAIRA/uL(A) Negative 04/11/2025 10:14 AM [facility] RBC UA 3-5 0 - 5 # /hpf 04/11/2025 10:14 AM [facility] WBC UA 0-5 0 - 5 # /hpf 04/11/2025 10:14 AM [facility] Bacteria UA 1+(A) None Seen 04/11/2025 10:14 AM [facility] Squamous Epithelial Cells 0-2 0 - 5 /hpf 04/11/2025 10:14 AM [facility] Mucus UA 1+ /LPF 04/11/2025 10:14 AM [facility] Reflex Status Culture to follow 04/11/2025 10:14 AM [facility] Urine URINE SPECIMEN OBTAINED BY CLEAN CATCH PROCEDURE / Unknown Collection / Unknown 04/11/2025 10:03 AM CDT 04/11/2025 10:09 AM [facility] Saadia Lanier MD LAB - URINALYSIS ORDERABLES Lorrie l Result Performing Organization Address [facility] Co de Phone Number [facility] [address] [place] [id number] * NONSTRESS TEST (04/11/2025 9:55 AM CDT) Narrative Saadia Lanier MD - 04/11/2025 9:55 AM CDT Saadia Lanier MD 04/12/2025 10:36 AM Non-Stress Test Interpretation Note: Date: 04/11/2025 Time period evaluated: 909 Gestational Age: 35w1d Indication(s): nausea/vomiting Baseline: 140 bpm Variability: Moderate Accels: Present Decels: None Contractions: uterine irritability Interpretation: Reactive and reassuring Plan: Appropriate to remove from NST and discharge home Neela Wick DO Saadia Lanier MD OB GYNE ORDERABLES Final Result * GLUCOSE CHALLENGE (02/16/2025 10:20 AM CDT) [facility] Glucose Challenge 113 64 - 140 mg/dL 02/16/2025 11:11 AM CDT [facility] Glucose Challenge Time 02/16/2025 11:11 AM CDT [facility] Blood BLOOD SPECIMEN / Unknown Venipuncture / Unknown 02/16/2025 10:20 AM CDT 02/16/2025 10:31 AM CDT Stefani Smallwood APRN-NEUROSURGERY RESEARCH DIRECTOR LAB - CHEMISTRY ORDE RABLES Final Result Performing Organization Address City/[facility] Co de Phone Number [facility] [address] [place], [place] [id number] * FERRITIN (02/16/2025 10:20 AM CDT) Pathologist [facility] Ferritin 10 5 - 204 ng/mL 02/16/2025 11:25 AM CDT [facility] Blood BLOOD SPECIMEN / Unknown Venipuncture / Unknown 02/16/2025 10:20 AM CDT 02/16/2025 10:31 AM CDT Stefani Smallwood APRN-[employer] LAB - CHEMISTRY ORDE RABNATALIA Final Result Performing Organization Address [facility]/ZIP Co de Phone Number [facility] [address] [place] [address] * HIV-1 HIV-2 ANTIBODY + HIV P24 AG PANEL (02/16/2025 9:51 AM CDT) HIV1/2 Ab + P24 Ag Non Reactive Non Reactive 02/16/2025 11:24 AM CDT [facility] Blood BLOOD SPECIMEN / Unknown Venipuncture / Unknown 02/16/2025 9:51 AM CDT 02/16/2025 10:31 AM CDT Narrative [facility] - 02/16/2025 11:24 AM CDT No Laboratory evidence of HIV infection. Stefani Smallwood CITY LETTER CARRIER-[employer] LAB - CHEMISTRY ORDE ELMA Final Result Performing Organization Address [facility] Co de Phone Number [facility] [address] [place] [address] * PAP IG LB+HPV APTIMA (12/21/2024 11:36 AM CDT) Diagnosis Comment 12/23/2024 1:09 PM CDT [facility] ([facility]) Comment:NEGATIVE FOR INTRAEP ITHELIAL LESION OR MALIGNANCY. Specimen Adequacy Comment 1:09 PM CDT [facility] ([facility]) Comment:Satisfactory for drea luation. No endocervical component is identified. Performed by Comment 12/23/2024 1:09 PM CDT [facility] ([facility]) Comment:Krissy Danielle ytologist (ASCP) Comment . 12/23/2024 1:09 PM CDT [facility] ([facility]) Note Comment 12/23/2024 1:09 PM CDT [facility] ([facility]) Comment: The Pap smear is a screening test designed to aid in the detection of premalignant and malignant conditions of the uterine cervix. It is not a diagnostic procedure and should not be used as the sole means of detecting cervical cancer. Both false-positive and false-negative reports do occur. [facility] CPT Code Automation Comment 12/23/2024 1:[address] [facility]) Comment: This liquid based ThinPrep(R) pap test was screened with the use of an image guided system. Human papillomavirus Aptima Negative Negative 12/23/2024 1:09 PM CDT [facility] ([facility]) Comment: This nucleic acid amplification test detects fourteen high-risk HPV types (16,18,31,33,35,39,45,51,52,56,58,59,66,68) without differentiation. Pathology/Cytolo gy PART OF UTERINE CERVIX / Unknown Collection / Unknown 12/21/2024 11:36 AM CDT 12/21/2024 11:56 AM CDT Narrative [facility] ([facility]) - 12/23/2024 1:09 PM CDT Performed at: - [address] [id number] Mechanism Assembler: Kalpana Gray MD, Phone: [phone] Performed at: - [address] [id number] Mechanism Assembler: Kalpana Gray MD, Phone: [phone] Specimen Comment: Source.............Cervix Specimen Comment: No. of containers..01 ThinPrep Vial Annetta Parmar CITY LETTER CARRIER-NEUROSURGERY RESEARCH DIRECTOR LAB - PATHOLOGY/CYTO LOGY ORDERABLES Final Result [facility]) [address] [place] [address] * HEPATITIS C ANTIBODY (12/21/2024 11:35 AM CDT) HCV Antibody Screen Non Reactive Non Reactive 12/21/2024 12:45 PM CDT [facility] Blood BLOOD SPECIMEN / Unknown Venipuncture / Unknown 12/21/2024 11:35 AM CDT 12/21/2024 12:00 PM CDT Narrative [facility] - 12/21/2024 12:45 PM CDT Non Reactive - Antibodies to Hepatitis C virus (HCV) were not detected, result does not exclude early acute HCV infection. Annetta Parmar CITY LETTER CARRIER-NEUROSURGERY RESEARCH DIRECTOR LAB - CHEMISTRY LISANDRA WILLS Final Result [facility] [address] [place] [address] from Last 3 Months or Most Recently Relevant to Health Maintenance Insurance MEDICAID Advance Directives * Full Code (Latest Code Status on File) Date Activated Date Inactivated Comments 05/16/2025 10:20 PM * Full Code Date Activated Date Inactivated Comments 05/08/2025 9:35 AM 05/11/2025 5:47 PM * Full Code Date Activated Date Inactivated Comments 12/07/2023 2:08 PM 12/07/2023 4:56 PM * Full Code Date Activated Date Inactivated Comments 11/23/2023 9:19 AM 11/26/2023 5:50 PM Care Teams Events Director Relationship Specialty Start Date End Date Tong Emanuel APRN-CNP [address] [place] [phone] PCP - Attributed-[employer] 08/12/19 Tong Emanuel APRN-CNP [address] [place] [address] [place] [phone] PCP - General Nurse Practitioner 04/11/25
--- OUTSIDE RECORDS SUMMARY | 2025-05-17 15:31 | XMS_ITS | Data Portability ---
Author Organization YUE HEAVENNiall Coon Address [address] [facility] [place] [address] Care Team Providers Care Car Wash Attendant Name Role Phone YONNY GALEAS Novelty Twister Operator Assessment Encounter Date Assessment Date Assessment LastModified by Organization Details LastModified Time 05/17/2023 05/17/2023 Tasha is a 32 y/o presenting @ 11.3 dated by LMP supported by 1st trimester US; here for initial OB exam. Initial US performed 1st trimester. Preg complicated by: h/o depression, CSx3, sickle cell trait, GBS carrier, UTI in , MJ use, nausea in . Dates confirmed w/ US today. Continue PNV discussed lifestyle modifications anticipatory guidance provided plan for f/u in 4 wks [email or web address] Not available 05/21/2023 13:23:48 Plan of Treatment Reminders Order Date Submit Date Provider Last Modified By Organization Details Last Modified Time Details Appointments None recorded . Lab pregnanc y test, urine 2024 025 [email or web address] In-Office Order, Internal Use Only DO Not Attach Compendium DO Not Attach Compendium, Do Not Delete/merge, [id number] 5 16:23:21 urinalys is, dipstick 2023 024 [email or web address] In-Office Order, Internal Use Only DO Not Attach Compendium DO Not Attach Compendium, Do Not Delete/merge, [id number] 4 01:05:46 vaginal pathogen s panel, TEO+prob e, vaginal fluid 2022 023 [facility], [address], [address], [place], [address], 3 16:12:48 urinalys is, dipstick 2022 023 [email or web address] In-Office Order, Internal Use Only DO Not Attach Compendium DO Not Attach Compendium, Do Not Delete/merge, [id number] 3 22:48:12 drug screen, urine 2022 023 [facility], [address], [address], [place], [address], 3 07:13:18 [email or web address] dy risk and X & Y analysis , chromoso me specific circulat ing cell free (CCF) DNA, maternal serum 2022 023 [facility], [address] [facility], [address], [place], [address], 3 20:09:10 urinalys is, dipstick 2022 023 [email or web address] In-Office Order, Internal Use Only DO Not Attach Compendium DO Not Attach Compendium, Do Not Delete/merge, [id number] 3 11:47:13 Referral obstetri tamica referral 2024 025 [facility], [address] [facility], [facility] [address], [place], [address], 5 04:21:14 Procedures None recorded . Surgeries None recorded . Imaging US, obstetri c, maternal evaluati on + anatomy - 2nd trimeste r anatomy scan 2023 024 kellen [facility], [address] [place] [address], [address], 4 17:02:17 Medication Orders 28 mg iron-800 mcg tablet 2024 025 [email or web address] [facility] [address], [address] , [place], [address], 5 16:23:33 amoxicil meredith 875 mg-potas sium clavulan ate 125 mg tablet 2022 023 [email or web address] [facility] [address], [address], [place], [address], 4 11:39:43 pyridoxi ne (vitamin B6) 25 mg tablet 2022 023 [facility] [address], [address], [place], [address], 3 09:50:55 sertrali ne 25 mg tablet 2022 023 [facility] [address], [address], [place], [address], 3 11:35:30 Patient TargetsNo targets recorded. Patient Instructions Encounter Date Encounter Id Patient Instructions Last Modified By Organization Details Last Modified Time 05/17/2023 [id number] On the date of this encounter, I saw and examined the patient, personally verifying the thomas and critical findings in the resident s note. I reviewed and agree with the resident/fellow s findings and plan. ~MD [email or web address] Not available 05/21/2023 13:28:24 12/19/2024 [id number] sickle cell disease: care instructions [email or web address] Not available 12/19/2024 16:23:21 A healthy lifestyle: care instructions [email or web address] Not available 12/19/2024 16:23:[address] Osmin [email or web address] Not available 12/19/2024 17:43:18 Reason for Referral Financial Analyst Intern Referral for Pr egnancy test positive Referring Physician: Glen Robles, Family Medicine, Encounter Date: 12/19/2024 Results Created Date Observation Date Name Description Value Unit Range Abnormal Flag Note LastModifiedBy Organization Detail LastModifiedTime 04/08/20 23 04/08/2023 CBC WITH DIFFE RENTI AL/PL ATELE T WBC 6.9 x10e3 /uL 3.4-10 .8 Not Available [facility] [address] [place], [address], 04/09/2023 03:08:57 04/08/20 23 04/08/2023 CBC WITH DIFFE RENTI AL/PL ATELE T RBC 5.24 x10e6 /uL 3.77-5 .28 Not Available [facility] [address] [place], [address], 04/09/2023 03:08:57 04/08/2004/08/2023 CBC WITH DIFFE RENTI AL/PL ATELE T hemoglobin 13.5 g/dL 11.1-1 5.9 Not Available [facility] [address] [place], [address], 04/09/2023 03:08:57 04/08/20 23 04/08/2023 CBC WITH DIFFE RENTI AL/PL ATELE T hematocrit 42.0 % 34.0-4 6.6 Not Available [facility] [address] [place], [address], 04/09/2023 03:08:57 04/08/2004/08/2023 CBC WITH DIFFE RENTI AL/PL ATELE T MCV 80 fL 79-97 Not Available [facility] [address] [place], [address], 04/09/2023 03:08:57 04/08/2004/08/2023 CBC WITH DIFFE RENTI AL/PL ATELE T MCH 25.8 pg 26.6-3 3.0 below low normal Not Available [facility] [address] [place], [address], 04/09/2023 03:08:57 04/08/2004/08/2023 CBC WITH DIFFE RENTI AL/PL ATELE T MCHC 32.1 g/dL 31.5-3 5.7 Not Available [facility] [address] [place], [address], 04/09/2023 03:08:57 04/08/20 23 04/08/2023 CBC WITH DIFFE RENTI AL/PL ATELE T RDW 14.3 % 11.5-1 4.5 Not Available [facility] [address] [place], [address], 04/09/2023 03:08:57 04/08/2004/08/2023 CBC WITH DIFFE RENTI AL/PL ATELE T platelets 275 x10e3 /uL 150-45 0 Not Available [facility] [address] [place], [address], 04/09/2023 03:08:57 04/08/20 23 04/08/2023 CBC WITH DIFFE RENTI AL/PL ATELE T neutrophils 63 % notest b. Not Available [facility] [address] [place], [address], 04/09/2023 03:08:57 04/08/20 23 04/08/2023 CBC WITH DIFFE RENTI AL/PL ATELE T lymphs 28 % notest b. Not Available [facility] [address] [place], [address], 04/09/2023 03:08:57 04/08/20 23 04/08/2023 CBC WITH DIFFE RENTI AL/PL ATELE T monocytes 8 % notest b. Not Available [facility] [address] [place], [address], 04/09/2023 03:08:57 04/08/20 23 04/08/2023 CBC WITH DIFFE RENTI AL/PL ATELE T eos 1 % notest b. Not Available [facility] [address] [place] [address], [address], 04/09/2023 03:08:57 04/08/20 23 04/08/2023 CBC WITH DIFFE RENTI AL/PL ATELE T basos 0 % notest b. Not Available [facility] [address] [place], [address], 04/09/2023 03:08:57 04/08/20 23 04/08/2023 CBC WITH DIFFE RENTI AL/PL ATELE T neutrophils (absolute) 4.3 x10e3 /uL 1.4-7. 0 Not Available [facility] [address] [place] [address], [address], 04/09/2023 03:08:57 04/08/20 23 04/08/2023 CBC WITH DIFFE RENTI AL/PL ATELE T lymphs (absolute) 1.9 x10e3 /uL 0.7-3. 1 Not Available [facility] [address] [place], [address], 04/09/2023 03:08:57 04/08/20 23 04/08/2023 CBC WITH DIFFE RENTI AL/PL ATELE T monocytes(ab solute) 0.5 x10e3 /uL 0.1-0. 9 Not Available [facility] [address] [place], [address], 04/09/2023 03:08:57 04/08/20 23 04/08/2023 CBC WITH DIFFE RENTI AL/PL ATELE T eos (absolute) 0.1 x10e3 /uL 0.0-0. 4 Not Available [facility] [address] [place], [address], 04/09/2023 03:08:57 04/08/20 23 04/08/2023 CBC WITH DIFFE RENTI AL/PL ATELE T baso (absolute) 0.0 x10e3 /uL 0.0-0. 2 Not Available [facility] [address] [place] [address], [address], 04/09/2023 03:08:57 04/08/20 23 04/08/2023 CBC WITH DIFFE RENTI AL/PL ATELE T immature granulocytes 0 % notest b. Not Available [facility] [address] [place], [address], 04/09/2023 03:08:57 04/08/20 23 04/08/2023 CBC WITH DIFFE RENTI AL/PL ATELE T immature grans (abs) 0.0 x10e3 /uL 0.0-0. 1 Not Available [facility] [address] [place], [address], 04/09/2023 03:08:57 04/08/20 23 04/08/2023 CBC WITH DIFFE RENTI AL/PL ATELE T NRBC 0 % 0-0 Not Available [facility] [address] [place], [address], 04/09/2023 03:08:57 04/08/20 23 04/09/2023 HCV ANTIB EMILIE RFX TO QUANT PCR HCV Ab Non Reacti ve nonrea ctive Not Available [facility] ([facility]) [address] [place], [address], 04/15/2023 11:37:57 04/08/20 23 04/10/2023 CT, NG, TRICH VAG BY TEO chlamydia by TEO Negati ve negati ve Not Available [facility] ([facility]) [address] [place], [address], 04/15/2023 11:37:58 04/08/20 23 04/10/2023 CT, NG, TRICH VAG BY TEO gonococcus by TEO Negati ve negati ve Not Available [facility] ([facility]) [address] [place], [address], 04/15/2023 11:37:58 04/08/20 23 04/10/2023 CT, NG, TRICH VAG BY TEO trich vag by TEO Negati ve negati ve Not Available [facility] ([facility]) [address] [facility], [place], [address], 04/15/2023 11:37:58 04/08/2004/08/2023 CYSTI C FIBRO SIS PROFI LE comment: Commen t The assay provi zuleika infor matio n inten ded to be used for wendy er scree star in adult s of repro ducti ve age, as an aid in [facility] scree star, and as a confi rmato ry test for anoth er medic ally estab lishe d diagn osis in [facility] and child naomie. The test is not indic ated for use in diagn ostic testi ng, pre-i mplan tatio n scree star, or for any stand -kiara e diagn ostic purpo ses witho ut confi rmati on by anoth er medic ally estab lishe d diagn ostic produ ct or proce dure. Not Available [facility] ([facility]) [address] [facility], [place], [address], 04/15/2023 11:37:59 04/08/2004/15/2023 CYSTI C FIBRO SIS PROFI LE CF, screen Commen t: RESUL TS: Negat romulo for 32 mutat ions shavon zed INTER PRETA TION: This indiv idual is negat romulo for the mutat ions shavon zed. This negat romulo resul t may need furth er inter preta tion depen ding on the clini macario indic ation . This resul t reduc es but does not elimi maría the risk to be a CF wendy er. COMME NTS: The detec tion rate varie s with [place] and is liste d below . The prese nce of an undet ected mutat ion in the CF gene canno t be ruled out. In the absen ce of famil y histo ry, the remai star risk that a perso n with a negat romulo resul t could have at least one CF mutat ion is liste d in the table . If there is a famil y histo ry of CF, these risk figur es do not apply . As detai led infor aleksander bro this indiv idual 's famil y histo ry would permi t a more accur ate asses sment of this indiv idual 's risk to be a wendy er of cysti c fibro sis, pleas e conta ct [facility] at [phone] for a carmen ed repor t. Mutat ion Detec tion Detec tion rates are based on mutat ion Rates among Ethni c frequ encie s in patie nts affec babita with Group s cysti c fibro sis. Among indiv idual s with an atypi macario or mild prese ntati on (e.g. conge nital absen ce of the vas defer ens, pancr eatit is) detec tion rates may vary from those provi ded here: Wendy er risk reduc tion when no famil y histo ry Detec tion [place] city Rate Ashke nazi 08/06 to 97% Jewis h Cauca dandy 08/05 to 90% (non- Hispa jenn) Afric an-Am jim n to 69% Hispa jenn to 73% to 55% This inter preta tion is based on the clini macario and famil y relat ionsh ip infor aleksander anderson provi ded and the curre nt under stand ing of the molec ular david ics of this condi tion. MUTAT IONS SHAVON ZED: G85E V520F W1282 X 2183A A to G R117H G542X N1303 K 2184d Katarina R334W S549N 394de lTT 2789+ 5G to A R347H S549R 621+1 G to T 3120+ 1G to A R347P G551D 711+1 G to T 3659d elC A455E R553X 1078d elT 3849+ 10kbC to T Delta I507 R560T 1717- 1G to A 3876d Katarina Delta F508 R1162 X 1898+ 1G to A 3905i nsT METHO DS/LI MITAT IONS: DNA is isola babita from the sampl e and teste d for the 32 CF mutat ions on the [employer] rs[employer] orm (Fidelina nex). Regio ns of the CFTR gene are ampli fied enzym atica lly and subje cted to a solut ion-p hase multi plex allel e-spe cific prime r exten emmett with subse quent hybri dizat ion to a bead array and fluor escen ce detec tion. Polym orphi sms F508C , I506V and I507V are inclu ded in this panel to rule out false posit romulo delta F508 homoz ygote s. Refle x testi ng of 5T is inclu ded in the panel for R117H inter preta tion. False posit romulo or negat romulo resul ts may occur for reaso ns that inclu de david ic varia nts, blood trans fusio ns, bone marro w trans plant ation , maryann eous repre senta tion of famil y relat ionsh ips or conta minat ion of a sampl e with mater nal cells . REFER ENCES : 1. Updat es on Wendy er Scree star for Cysti c Fibro sis. (2011 ) Am J Ob Gynec ol 117(4 ):102 8-103 1 2. Colin n, et al. (2004 ) David Med 6:387 -91 3. Tanika winters, et al. (2002 ) David Med 4:379 -391 4. Preco ncept ion and prena gracy wendy er scree star for cysti c fibro sis: (2000 )ACOG .ACMG publi catio n Resul ts Relea sed By: Ramona Kelsey, PhD, FAC [address] [facility] [address] Repor t Relea sed By: Ramona Kelsey, Ph.D. , [facility] Not Available [facility] ([facility]) [address] [facility], [place], [address], 04/15/2023 11:37:59 04/08/20 23 04/15/2023 CYSTI C FIBRO SIS PROFI LE pdf . Not Available [facility] ([facility]) [address] [facility], [place], [address], 04/15/2023 11:37:59 04/08/20 23 04/09/2023 HB SOLU + RFLX FRAC hemoglobin (HGB) solubility Positi ve negati ve abnormal Not Available [facility] ([facility]) [address] [facility], [place], [address], 04/15/2023 11:38:00 04/08/20 23 04/09/2023 ANTIB EMILIE SCREE N antibody screen Negati ve negati ve Not Available [facility] ([facility]) [address] [facility], [place], [address], 04/15/2023 11:38:01 04/08/20 23 04/09/2023 ABO GROUP ING AND RHO(D ) TYPIN G ABO grouping A Not Available [facility] ([facility]) [address] [facility], [place], [address], 04/15/2023 11:38:02 04/08/20 23 04/09/2023 ABO GROUP ING AND RHO(D ) TYPIN G Rh factor Positi ve Pleas e note: Prior recor ds for this patie nt's ABO / Rh type are not avail able for addit ional verif icati on. Not Available [facility] ([facility]) [address] [facility], [place], [address], 04/15/2023 11:38:02 04/08/20 23 04/09/2023 RUBEL LA ANTIB ODIES , IGG rubella antibodies, IgG 4.68 index immune >0.99 Non-i mmune <0.90 Equiv ocal 0.90 - 0.99 Immun e >0.99 Not Available [facility] ([facility]) [address] [facility], [place], [address], 04/15/2023 11:38:03 04/08/20 23 04/09/2023 HBSAG SCREE N HBsAg screen Negati ve negati ve Not Available [facility] ([facility]) [address] [facility], [place], [address], 04/15/2023 11:38:04 04/08/20 23 04/14/2023 URINE CULTU RE, ROUTI NE urine culture, routine Final report abnormal Not Available [facility] ([facility]) [address] [facility], [place], [address], 04/15/2023 11:38:05 04/08/20 23 04/14/2023 URINE CULTU RE, ROUTI NE result 1 Commen t abnormal Esche marco a coli, ident ified by an autom ated bioch emica l syste m. Great er than 100,0 00 colon y formi ng units per mL Cefaz nina <=4 ug/mL Cefaz nina with an EVERARDO <=16 predi cts susce ptibi lity to the oral agent s cefac kelvin, cefdi adelaida, cefpo doxim e, cefpr ozil, cefur oxime , cepha lexin , and lorac arbef when used for thera py of uncom plica babita urina ry tract infec tions due to E. coli, Klebs iella pneum oniae , and Prote us mirab ilis. Not Available [facility] ([facility]) [address] [facility], [place], [address], 04/15/2023 11:38:05 04/08/20 23 04/14/2023 URINE CULTU RE, ROUTI NE antimicrobia l susceptibili ty Commen t S = Susce ptibl e; I = Inter media te; R = Resis tant P = Posit romulo; N = Negat romulo MICS are expre ssed in micro grams per mL Antib iotic RSLT# 1 RSLT# 2 RSLT# 3 RSLT# 4 Amoxi cilli n/Cla vulan ic Acid S Ampic illin R Cefep kirsten S Ceftr iaxon e S Cefur oxime S Cipro floxa flash R Ertap enem S Genta micin R Imipe nem S Levof loxac in R Merop enem S Nitro furan toin S Piper acill in/Ta zobac tian S Tetra cycli ne S Tobra mycin I Trime thopr im/Belle lfa S Not Available [facility] ([facility]) [address] [facility], [place], [address], 04/15/2023 11:38:05 04/08/20 23 04/09/2023 RPR, RFX QN RPR/C ONFIR M TP RPR Non Reacti ve nonrea ctive Not Available [facility] ([facility]) [address] [facility], [place], [address], 04/15/2023 11:38:06 04/08/20 23 04/09/2023 HIV AB/P2 4 AG WITH REFLE X HIV Ab/P24 Ag screen Non Reacti ve nonrea ctive HIV Negat romulo HIV-1 /HIV- 2 antib odies and HIV-1 p24 antig en were NOT detec babita. There is no labor atory evide nce of HIV infec tion. Not Available [facility] ([facility]) [address] [facility], [place], [address], 04/15/2023 11:38:07 04/08/20 23 04/09/2023 VARIC MOHINDER- ZOSTE R V AB, IGG varicella zoster IgG 764 index immune >165 Negat romulo <135 Equiv ocal 135 - 165 Posit romulo >165 A posit romulo resul t gener ally indic ates expos ure to the patho gen or admin istra tion of speci fic immun oglob ulins , but it is not indic ation of activ e infec tion or stage of disea se. Not Available [facility] ([facility]) [address] [facility], [place], [address], 04/15/2023 11:38:08 04/08/20 23 04/15/2023 TOXAS SURE SELEC T 13 (MW) summary report (summary) FINAL ===== ===== ===== ===== ===== ===== ===== ===== ===== ===== ===== ===== ===== === TOXAS SURE SELEC T 13 (MW) ===== ===== ===== ===== ===== ===== ===== ===== ===== ===== ===== ===== ===== === Test Resul t Flag Units Drug Prese nt Carbo xy-TH C 382 ng/mg creat Carbo xy-TH C is a metab olite of tetra hydro canna binol (THC) . Sourc e of THC is most commo nly herba l marij uana or marij uana- based produ cts, but THC is also prese nt in a sched uled presc ripti on medic ation . Trace amoun ts of THC can be prese nt in hemp and canna bidio l (CBD) produ cts. This test is not inten ded to disti nguis h betwe en delta -9-te trahy droca nnabi nol, the predo minan t form of THC in most herba l or marij uana- based produ cts, and delta -8-te trahy droca nnabi nol. ===== ===== ===== ===== ===== ===== ===== ===== ===== ===== ===== ===== ===== === Test Resul t Flag Units Ref Range Creat inine 78 mg/dL >=20 ===== ===== ===== ===== ===== ===== ===== ===== ===== ===== ===== ===== ===== === Decla red Medic ation s: Medic ation list was not provi ded. ===== ===== ===== ===== ===== ===== ===== ===== ===== ===== ===== ===== ===== === For clini macario consu ltati on, pleas e call . ===== ===== ===== ===== ===== ===== ===== ===== ===== ===== ===== ===== ===== === Not Available [facility] ([facility]) [address] [facility], [place], [address], 04/15/2023 16:12:25 04/08/2004/15/2023 TOXAS SURE SELEC T 13 (MW) pdf . Not Available [facility] ([facility]) [address] [facility], [place], [address], 04/15/2023 16:12:25 04/08/20 23 04/09/2023 INTER PRETA TION: interpretati on: Commen t Not infec babita with HCV unles s early or acute infec tion is suspe cted (whic h may be delay ed in an immun ocomp romis ed indiv idual ), or other evide nce exist s to indic ate HCV infec tion. Not Available [facility] ([facility]) [address] [facility], [place], [address], 04/15/2023 11:37:57 04/08/20 23 04/12/2023 HGB FRACT IONAT ION CASCA DE HGB F 0.3 % 0.0-2. 0 Not Available [facility] ([facility]) [address] [facility] [place], [address], 04/15/2023 11:37:56 04/08/20 23 04/12/2023 HGB FRACT IONAT ION CASCA DE HGB A 61.8 % 96.4-9 8.8 below low normal Not Available [facility] ([facility]) [address] [facility], [place], [address], 04/15/2023 11:37:56 04/08/20 23 04/12/2023 HGB FRACT IONAT ION CASCA DE HGB A2 3.0 % 1.8-3. 2 Not Available [facility] ([facility]) [address] [facility], [place], [address], 04/15/2023 11:37:56 04/08/20 23 04/12/2023 HGB FRACT IONAT ION CASCA DE HGB S 34.9 % 0.0 above high normal Not Available [facility] ([facility]) [address] [facility], [place], [address], 04/15/2023 11:37:56 04/08/20 23 04/12/2023 HGB FRACT IONAT ION CASCA DE interpretati on: Commen t Hemog lyssa lu rn and anna ntrat ions are consi stent with sickl e cell trait (hete rozyg ous). Sugge st clini macario and hemat ologi c corre latio n. Sickl e Trait Inter preta tion Range s Hgb A 50.0 - 70.0% Hgb S 30.0 - 45.0% Hgb A2 1.8 - 4.0% Not Available [facility] ([facility]) [address] [facility], [place], [address], 04/15/2023 11:37:56 04/08/20 23 04/08/2023 pregn aleyda test, urine HCG positi ve Not Available In-Office Order Internal Use Only DO Not Attach Compendium DO Not Attach Compendium, Do Not Delete/merge, [id number] 04/08/2023 12:24:38 04/08/2004/08/2023 urina lysis , dipst ick Leukocytes Negati ve Not Available In-Office Order Internal Use Only DO Not Attach Compendium DO Not Attach Compendium, Do Not Delete/merge, [id number] 04/08/2023 12:24:37 04/08/20 23 04/08/2023 urina lysis , dipst ick Nitrite negati ve Not Available In-Office Order Internal Use Only DO Not Attach Compendium DO Not Attach Compendium, Do Not Delete/merge, [facility] 04/08/2023 12:24:37 04/08/20 23 04/08/2023 urina lysis , dipst ick Urobilinogen .2 Not Available In-Of fice Order Internal Use Only DO Not Attach Compendium DO Not Attach Compendium, Do Not Delete/merge, [facility] 04/08/2023 12:24:37 04/08/20 23 04/08/2023 urina lysis , dipst ick Protein Negati ve Not Available In-Office Order Internal Use Only DO Not Attach Compendium DO Not Attach Compendium, Do Not Delete/merge, [facility] 04/08/2023 12:24:37 04/08/20 23 04/08/2023 urina lysis , dipst ick pH 7.0 Not Available In-Office Order Internal Use Only DO Not Attach Compendium DO Not Attach Compendium, Do Not Delete/merge, [facility] 04/08/2023 12:24:37 04/08/20 23 04/08/2023 urina lysis , dipst ick Blood Negati ve Not Available In-Office Order Internal Use Only DO Not Attach Compendium DO Not Attach Compendium, Do Not Delete/merge, [facility] 04/08/2023 12:24:37 04/08/20 23 04/08/2023 urina lysis , dipst ick Specific Eckert 1.020 Not Available In-Off ice Order Internal Use Only DO Not Attach Compendium DO Not Attach Compendium, Do Not Delete/merge, [facility] 04/08/2023 12:24:37 04/08/20 23 04/08/2023 urina lysis , dipst ick Ketone Negati ve Not Available In-Office Order Internal Use Only DO Not Attach Compendium DO Not Attach Compendium, Do Not Delete/merge, [facility] 04/08/2023 12:24:37 04/08/20 23 04/08/2023 urina lysis , dipst ick Bilirubin Negati ve Not Available In-Office Order Internal Use Only DO Not Attach Compendium DO Not Attach Compendium, Do Not Delete/merge, [id number] 04/08/2023 12:24:37 04/08/2004/08/2023 urina lysis , dipst ick Glucose Negati ve Not Available In-Office Order Internal Use Only DO Not Attach Compendium DO Not Attach Compendium, Do Not Delete/merge, [id number] 04/08/2023 12:24:37 05/17/2005/18/2023 DRUG PROFI LE,UR ,9 DRUGS ,BUND amphetamines , urine Negati ve NG/mL cutoff =1000 Amphe tamin e test inclu zuleika Amphe tamin e and Metha mphet amine . Not Available [facility] ([facility]) [address] [place], [address], 05/20/2023 07:13:18 05/17/20 23 05/18/2023 DRUG PROFI LE,UR ,9 DRUGS ,BUND barbiturate Negati ve NG/mL cutoff =300 Not Available [facility] ([facility]) [address] [place], [address], 05/20/2023 07:13:18 05/17/20 23 05/18/2023 DRUG PROFI LE,UR ,9 DRUGS ,BUND benzodiazepi allie Negati ve NG/mL cutoff =300 Not Available [facility] ([facility]) [address] [place], [address], 05/20/2023 07:13:18 05/17/20 23 05/18/2023 DRUG PROFI LE,UR ,9 DRUGS ,BUND cannabinoid See Final Result s Not Available [facility] ([facility]) [address] [place], [address], 05/20/2023 07:13:18 05/17/20 23 05/18/2023 DRUG PROFI LE,UR ,9 DRUGS ,BUND cocaine (metab.) Negati ve NG/mL cutoff =300 Not Available [facility] ([facility]) [address] [place], [address], 05/20/2023 07:13:18 05/17/20 23 05/18/2023 DRUG PROFI LE,UR ,9 DRUGS ,BUND opiates Negati ve NG/mL cutoff =300 Opiat e test inclu zuleika Codei ne and Morph ine only. Not Available [facility] ([facility]) [address] [facility], [place], [address], 05/20/2023 07:13:18 05/17/20 23 05/18/2023 DRUG PROFI LE,UR ,9 DRUGS ,BUND phencyclidin e Negati ve NG/mL cutoff =25 Not Available [facility] ([facility]) [address] [facility], [place], [address], 05/20/2023 07:13:18 05/17/20 23 05/18/2023 DRUG PROFI LE,UR ,9 DRUGS ,BUND methadone screen, urine Negati ve NG/mL cutoff =300 Not Available [facility] ([facility]) [address] [facility], [place], [address], 05/20/2023 07:13:18 05/17/2005/18/2023 DRUG PROFI LE,UR ,9 DRUGS ,BUND propoxyphene , urine Negati ve NG/mL cutoff =300 Not Available [facility] ([facility]) [address] [place], [address], 05/20/2023 07:13:18 05/17/2005/21/2023 MATER NIT21 PLUS CORE gestation Single ton Not Available [facility] ([facility]) [address] [place], [address], 05/21/2023 20:09:10 05/17/20 23 05/21/2023 MATER NIT21 PLUS CORE fraction 6% Not Available [facility] ([facility]) [address] [place], [address], 05/21/2023 20:09:10 05/17/20 23 05/21/2023 MATER NIT21 PLUS CORE gestational age > or = 9W: Yes Not Available [facility] ([facility]) [address] [place], [address], 05/21/2023 20:09:10 05/17/20 23 05/21/2023 MATER NIT21 PLUS CORE test result Negati ve Not Available [facility] ([facility]) [address] [facility], [place], [address], 05/21/2023 20:09:10 05/17/20 23 05/21/2023 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 Clini macario corre latio n is sugge sted. Not Available [facility] ([facility]) [address] [facility], [place], [address], 05/21/2023 20:09:10 05/17/20 23 05/21/2023 MATER NIT21 PLUS CORE approved by Josefa jhaveri MD, PhD, [facility], [facility] [place] nom Labor atori es Not Available [facility] ([facility]) [address] [facility], [place], [address], 05/21/2023 20:09:10 05/17/20 23 05/21/2023 MATER NIT21 PLUS CORE trisomy 21 (down syndrome) Negati ve Not Available [facility] ([facility]) [address] [place], [address], 05/21/2023 20:09:10 05/17/20 23 05/21/2023 MATER NIT21 PLUS CORE trisomy 18 (marcano syndrome) Negati ve Not Available [facility] ([facility]) [address] [facility], [place], [address], 05/21/2023 20:09:10 05/17/20 23 05/21/2023 MATER NIT21 PLUS CORE trisomy 13 (patau syndrome) Negati ve Not Available [facility] ([facility]) [address] [facility], [place], [address], 05/21/2023 20:09:10 05/17/20 23 05/21/2023 MATER NIT21 PLUS CORE sex Commen t Consi stent with Male Not Available [facility] ([facility]) [address] [facility], [place], [address], 05/21/2023 20:09:10 05/17/20 23 05/21/2023 MATER NIT21 PLUS CORE negative predictive value Note The Negat romulo Predi ctive Value (NPV) for triso my 21, 18, and 13 is great er than 99%. The NPV for SCA and ESS canno t be calcu lated as SCA and ESS are only repor babita when an abnor malit y is detec babita. Not Available [facility] ([facility]) [address] [facility], [place], [address], 05/21/2023 20:09:10 05/17/20 23 05/21/2023 MATER NIT21 PLUS CORE positive predictive value N/A Not Available [facility] ([facility]) [address] [facility], [place], [address], 05/21/2023 20:09:10 05/17/20 23 05/21/2023 MATER NIT21 PLUS CORE about the test Commen t The Mater niT(R ) 21 PLUS labor atory -deve loped test (LDT) shavon zes circu latin g cell- free DNA from a mater nal blood sampl e. This test is used for scree star purpo ses and not diagn ostic . Clini macario corre latio n is recom romain d. Valid ation data on twin pregn ancie s is limit ed and the abili ty of this test to detec t aneup loidy in highe r multi ple gesta tions has not yet been valid ated. Not Available [facility] ([facility]) [address] [place], [address], 05/21/2023 20:09:10 05/17/20 23 05/21/2023 MATER NIT21 PLUS CORE test method Commen t See Notes Circu latin g cell- free DNA was purif ied from the plasm a compo nent of mater nal blood . The extra cted DNA was then conve rted into a genom ic DNA sydni ry for aneup loidy shavon sis of chrom osome s 21, 18, and 13 via next gener ation seque ncing .[1] Optio nal findi ngs based on the test order inclu de sex chrom osome aneup loidy (SCA) [2], and enhan chelsie seque ncing serie s (ESS) [3], which will only be repor babita on as an addit ional findi ng when an abnor malit y is detec babita. SCA testi ng inclu zuleika infor matio n on X and Y repre senta tion, while ESS testi ng inclu zuleika delet ions in selec babita regio ns (22q, 15q, 11q, 8q, 5p, 4p, 1p) and triso my of chrom osome s 16 and 22. Not Available [facility] ([facility]) [address] [facility], [place], [address], 05/21/2023 20:09:10 05/17/20 23 05/21/2023 MATER NIT21 PLUS CORE performance Commen t The perfo rmanc e aldo cteri stics of the Mater niT(R ) 21 PLUS labor atory -deve loped test (LDT) have been deter mined in a clini macario valid ation study with pregn ant women at incre ased risk for chrom osoma l aneup loidy .[1-4 ] Not Available [facility] ([facility]) [address] [facility], [place], [address], 05/21/2023 20:09:10 05/17/20 23 05/21/2023 MATER NIT21 PLUS CORE performance characterist ics Note ----- ----- ----- ----- ----- ----- ----- ----- ----- ----- ----- ---- ! Sex ! Sujit horvath: 99.4% ! !---- ----- ----- ----- ----- ----- ----- ----- ----- ----- ----- ---! ! Kinza n (alana juarez syndr ome) ! Est. Sens# ! Est. Spec ! !---- ----- ----- ----- ----- ----- ----- ----- ----- ----- ----- ---! ! Jana my 21 (Bárbara Syndr ome) ! 99.1% ! 99.9% ! !---- ----- ----- ----- ----- ----- ----- ----- ----- ----- ----- ---! ! Jana my 18 (Girish winters Syndr ome) ! >99.9 % ! 99.6% ! !---- ----- ----- ----- ----- ----- ----- ----- ----- ----- ----- ---! ! Jana my 13 (Alexi u Syndr ome) ! 91.7% ! 99.7% ! !---- ----- ----- ----- ----- ----- ----- ----- ----- ----- ----- ---! ! Sex Chrom osome Aneup gio es## ! 96.2% ! 99.7% ! !---- ----- ----- ----- ----- ----- ----- ----- ----- ----- ----- ---! * As repor babita in ISCA datab ase nstd3 7 [http s://w olga.nc bi.nl .nih .gov/ dbvar /stud ies/n std37 / ] # Estim ated Sensi tivit y. Sensi tivit y estim ated acros s the obser zaid size distr ibuti on of each syndr ome [per ISCA datab ase nstd3 7] and acros s the range of fract ions obser zaid in routi ne clini macario NIPT. Actua l sensi tivit y can also be influ enced by other facto rs such as the size of the event , total seque nce count s, ampli ficat ion bias, or seque nce bias. ## Singl eton gesta tion only. Not Available [facility] ([facility]) [address], [place], [address], 05/21/2023 20:09:10 05/17/20 23 05/21/2023 MATER NIT21 PLUS CORE limitations of the test Commen t While the resul ts of these tests are highl y relia ble, disco rdant resul ts, inclu ding inacc urate sex predi ction , may occur due to place ntal, mater nal, or mosai cism or neopl asm; vanis johann twin; prior mater nal organ trans plant ; or other cause s. These tests are scree star tests and not diagn ostic ; they do not repla ce the accur acy and preci emmett of prena gracy diagn osis with CVS or amnio cente sis. A patie nt with a posit romulo test resul t shoul d be refer red for david ic couns eling and offer ed invas romulo prena gracy diagn osis for confi rmati on of test resul ts.[5 ] The resul ts of this testi ng, inclu ding the benef its and limit ation s, shoul d be discu ssed with a quali fied healt hcare provi brianna. Pregn aleyda manag ement decis ions, inclu ding termi natio n of the pregn aleyda, anthony d not be based on the resul ts of these tests alone . The healt hcare provi brianna is respo nsibl e for the use of this infor matio n in the manag ement of their patie nt. Sex chrom osoma l aneup loidi es are not repor table for known multi ple gesta tions . A negat romulo resul t does not ensur e an unaff ected pregn aleyda nor does it exclu de the possi bilit y of other chrom osoma l abnor malit ies or defec ts which are not a part of these tests . An uninf ormat romulo resul t may be repor babita, the cause s of which may inclu de, but are not limit ed to, insuf ficie nt seque ncing cover age, noise or artif acts in the regio n, ampli ficat ion or seque ncing bias, or insuf ficie nt fract ion. These tests are not inten ded to ident stef pregn ancie s at risk for neura l tube defec ts or ventr al wall defec ts. Testi ng for whole chrom osome abnor malit ies (incl uding sex chrom osome s) and for subch romos omal abnor malit ies could lead to the poten tial disco very of both and mater nal genom ic abnor malit ies that could have major , minor , or no, clini macario signi fican ce. Evalu ating the signi fican ce of a posit romulo or a non-r eport able resul t may invol ve both invas romulo testi ng and addit ional studi es on the mothe r. Such inves tigat ions may lead to a diagn osis of mater nal chrom osoma l or subch romos omal abnor malit ies, which on occas ion may be assoc iated with benig n or malig nant mater nal neopl asms. These tests may not accur ately ident stef tripl oidy, rosie chelsie rearr angem ents, or the preci se locat ion of subch romos omal dupli catio ns or delet ions; these may be detec babita by prena gracy diagn osis with CVS or amnio cente sis. The abili ty to repor t resul ts may be impac babita by mater nal BMI, mater nal weigh t, mater nal syste everardo lupus eryth emato bernadette (SLE) and/o r by certa in pharm aceut ical agent s such as low molec ular weigh t hepar in (for examp le: Loven ox(R) , Xapar in(R) , Clexa ne(R) and Fragm in(R) ). Not Available [facility] ([facility]) [address] [facility], [place], [address], 05/21/2023 20:09:10 05/17/20 23 05/21/2023 MATER NIT21 PLUS CORE note Commen t See Notes [employer] is a subsi diary of Labor atory Corpo ratio n of Louann Merazi ngs, using the brand [employer]. This test was devel oped and its perfo rmanc e aldo cteri stics deter mined by [employer]. It has not been clear ed or appro zaid by the Food and Drug Admin istra tion. This labor atory is certi fied under the Clini macario Labor atory Impro vemen t Amend ments (CLIA ) as quali fied to perfo rm high compl exity clini macario labor atory testi ng and accre dited by the Yariel lowe of Ameri can Patho logis ts (CAP) . If there is futur e clini macario need for addin g Mater niT GENOM E testi ng, this speci men will be avail able until term. [facility] sampl es will not be retai andria beyon d 60 days. [facility] patie nts will have to send a new sampl e for re-se quenc ing ([facility] Test Code: 21711 4). Not Available [facility] ([facility]) [address] [facility], [place], [address], 05/21/2023 20:09:10 05/17/20 23 05/21/2023 MATER NIT21 PLUS CORE references Commen t 1. David LOWE, et al. David Med. 2012; 14(3) :296- 305. 2. Cooper RITTER, et al. Prena t Diag. 2013; 33(6) :591- 597. 3. Elliott C, et al. Clin Chem. 2015 Apr;6 1(4): 608-6 16. 4. David LOWE, et al. David Med. 2011; 13(11 ):913 -920. 5. ACOG/ SMFM Pract ice Bulle tin No. 226, Apr 2020. Not Available [facility] ([facility]) [address] [facility], [place], [address], 05/21/2023 20:09:10 05/17/20 23 05/21/2023 MATER NIT21 PLUS CORE pdf . Not Available [facility] ([facility]) [address] [facility], [place], [address], 05/21/2023 20:09:10 05/17/20 23 05/17/2023 urina lysis , dipst ick Leukocytes Negati ve Not Available In-Office Order Internal Use Only DO Not Attach Compendium DO Not Attach Compendium, Do Not Delete/merge, [id number] 05/17/2023 10:26:17 05/17/20 23 05/17/2023 urina lysis , dipst ick Nitrite negati ve Not Available In-Office Order Internal Use Only DO Not Attach Compendium DO Not Attach Compendium, Do Not Delete/merge, [id number] 05/17/2023 10:26:17 05/17/20 23 05/17/2023 urina lysis , dipst ick Urobilinogen 1 Not Available In-Of fice Order Internal Use Only DO Not Attach Compendium DO Not Attach Compendium, Do Not Delete/merge, [id number] 05/17/2023 10:26:17 05/17/20 23 05/17/2023 urina lysis , dipst ick Protein Negati ve Not Available In-Office Order Internal Use Only DO Not Attach Compendium DO Not Attach Compendium, Do Not Delete/merge, [id number] 05/17/2023 10:26:17 05/17/20 23 05/17/2023 urina lysis , dipst ick pH 7.0 Not Available In-Office Order Internal Use Only DO Not Attach Compendium DO Not Attach Compendium, Do Not Delete/merge, [id number] 05/17/2023 10:26:05/17/2005/17/2023 urina lysis , dipst ick Blood Negati ve Not Available In-Office Order Internal Use Only DO Not Attach Compendium DO Not Attach Compendium, Do Not Delete/merge, [id number] 05/17/2023 10:26:17 05/17/20 23 05/17/2023 urina lysis , dipst ick Specific Eckert 1.025 Not Available In-Off ice Order Internal Use Only DO Not Attach Compendium DO Not Attach Compendium, Do Not Delete/merge, [id number] 05/17/2023 10:26:17 05/17/20 23 05/17/2023 urina lysis , dipst ick Ketone Small Not Available In-Office Order Internal Use Only DO Not Attach Compendium DO Not Attach Compendium, Do Not Delete/merge, [id number] 05/17/2023 10:26:17 05/17/20 23 05/17/2023 urina lysis , dipst ick Bilirubin Negati ve Not Available In-Office Order Internal Use Only DO Not Attach Compendium DO Not Attach Compendium, Do Not Delete/merge, [id number] 05/17/2023 10:26:17 05/17/20 23 05/17/2023 urina lysis , dipst ick Glucose Negati ve Not Available In-Office Order Internal Use Only DO Not Attach Compendium DO Not Attach Compendium, Do Not Delete/merge, [id number] 05/17/2023 10:26:17 05/17/20 23 05/17/2023 urina lysis , dipst ick Appearance Slight ly Cloudy Not Available In-Office Order Internal Use Only DO Not Attach Compendium DO Not Attach Compendium, Do Not Delete/merge, [id number] 05/17/2023 10:26:17 05/17/20 23 05/17/2023 urina lysis , dipst ick Color Yellow Not Available In-Office Order Internal Use Only DO Not Attach Compendium DO Not Attach Compendium, Do Not Delete/merge, [id number] 05/17/2023 10:26:17 05/17/20 23 05/20/2023 CANNA BINOI D CONFI RMATI ON, UR cannabinoid Positi ve cutoff =50 abnormal Not Available [facility] ([facility]) [address] [facility], [place], [address], 05/20/2023 07:13:19 05/17/20 23 05/20/2023 CANNA BINOI D CONFI RMATI ON, UR carboxy THC conf, MS, ur 508 NG/mL cutoff =15 Not Available [facility] ([facility]) [address] [facility], [place], [address], 05/20/2023 07:13:19 06/14/20 23 06/16/2023 NUSWA B VAGIN ITIS PLUS (VG+) atopobium vaginae Modera te - 1 score Not Available [facility] ([facility]) [address] [place] [address], [place], [address], 06/16/2023 16:12:48 06/14/20 23 06/16/2023 NUSWA B VAGIN ITIS PLUS (VG+) bvab 2 Low - 0 score Not Available [facility] ([facility]) [address] [place] [address], [place], [address], 06/16/2023 16:12:48 06/14/20 23 06/16/2023 NUSWA B VAGIN ITIS PLUS (VG+) megasphaera 1 Low - 0 score Calcu late total score by abhinav g the 3 indiv idual bacte rial vagin osis (BV) marke r score s toget her. Total score is inter prete d as follo ws: Total score 0-1: Indic ates the absen ce of BV. Total score 2: Indet ermin ate for BV. Addit ional clini macario data shoul d be evalu ated to estab ildefonso a diagn osis. Total score 3-6: Indic ates the prese nce of BV. This test was devel oped and its perfo rmanc e aldo cteri stics deter mined by [facility]. It has not been clear ed or appro zaid by the Food and Drug Admin istra tion. Not Available [facility] ([facility]) [address] [place], [address], 06/16/2023 16:12:48 06/14/20 23 06/16/2023 NUSWA B VAGIN ITIS PLUS (VG+) kalpana albicans, TEO Positi ve negati ve abnormal Not Available [facility] ([facility]) [address] [place], [address], 06/16/2023 16:12:48 06/14/20 23 06/16/2023 NUSWA B VAGIN ITIS PLUS (VG+) kalpana glabrata, TEO Negati ve negati ve Not Available [facility] ([facility]) [address] [place], [address], 06/16/2023 16:12:48 06/14/20 23 06/16/2023 NUSWA B VAGIN ITIS PLUS (VG+) trich vag by TEO Negati ve negati ve Not Available [facility] ([facility]) [address] [place], [address], 06/16/2023 16:12:48 06/14/20 23 06/16/2023 NUSWA B VAGIN ITIS PLUS (VG+) chlamydia trachomatis, TEO Negati ve negati ve Not Available [facility] ([facility]) [address] [place], [address], 06/16/2023 16:12:48 06/14/20 23 06/16/2023 NUSWA B VAGIN ITIS PLUS (VG+) neisseria gonorrhoeae, TEO Negati ve negati ve Not Available [facility] ([facility]) [address] [place], [address], 06/16/2023 16:12:48 06/14/20 23 06/14/2023 urina lysis , dipst ick Leukocytes Large Not Available In-Offi ce Order Internal Use Only DO Not Attach Compendium DO Not Attach Compendium, Do Not Delete/merge, [id number] 06/14/2023 11:49:44 06/14/20 23 06/14/2023 urina lysis , dipst ick Nitrite negati ve Not Available In-Office Order Internal Use Only DO Not Attach Compendium DO Not Attach Compendium, Do Not Delete/merge, [id number] 06/14/2023 11:49:44 06/14/20 23 06/14/2023 urina lysis , dipst ick Urobilinogen .2 Not Available In-Of fice Order Internal Use Only DO Not Attach Compendium DO Not Attach Compendium, Do Not Delete/merge, [id number] 06/14/2023 11:49:44 06/14/20 23 06/14/2023 urina lysis , dipst ick Protein Negati ve Not Available In-Office Order Internal Use Only DO Not Attach Compendium DO Not Attach Compendium, Do Not Delete/merge, [id number] 06/14/2023 11:49:44 06/14/20 23 06/14/2023 urina lysis , dipst ick pH 7.0 Not Available In-Office Order Internal Use Only DO Not Attach Compendium DO Not Attach Compendium, Do Not Delete/merge, [id number] 06/14/2023 11:49:44 06/14/20 23 06/14/2023 urina lysis , dipst ick Blood Negati ve Not Available In-Office Order Internal Use Only DO Not Attach Compendium DO Not Attach Compendium, Do Not Delete/merge, [id number] 06/14/2023 11:49:44 06/14/20 23 06/14/2023 urina lysis , dipst ick Specific Eckert 1.015 Not Available In-Off ice Order Internal Use Only DO Not Attach Compendium DO Not Attach Compendium, Do Not Delete/merge, [id number] 06/14/2023 11:49:44 06/14/20 23 06/14/2023 urina lysis , dipst ick Ketone Negati ve Not Available In-Office Order Internal Use Only DO Not Attach Compendium DO Not Attach Compendium, Do Not Delete/merge, [facility] 06/14/2023 11:49:44 06/14/20 23 06/14/2023 urina lysis , dipst ick Bilirubin Negati ve Not Available In-Office Order Internal Use Only DO Not Attach Compendium DO Not Attach Compendium, Do Not Delete/merge, [facility] 06/14/2023 11:49:44 06/14/20 23 06/14/2023 urina lysis , dipst ick Glucose Negati ve Not Available In-Office Order Internal Use Only DO Not Attach Compendium DO Not Attach Compendium, Do Not Delete/merge, [facility] 06/14/2023 11:49:44 07/19/19 24 07/19/2023 urina lysis , dipst ick Leukocytes Large Not Available In-Offi ce Order Internal Use Only DO Not Attach Compendium DO Not Attach Compendium, Do Not Delete/merge, [facility] 07/19/2023 13:37:13 07/19/19 24 07/19/2023 urina lysis , dipst ick Nitrite negati ve Not Available In-Office Order Internal Use Only DO Not Attach Compendium DO Not Attach Compendium, Do Not Delete/merge, [facility] 07/19/2023 13:37:13 07/19/19 24 07/19/2023 urina lysis , dipst ick Urobilinogen .2 Not Available In-Of fice Order Internal Use Only DO Not Attach Compendium DO Not Attach Compendium, Do Not Delete/merge, [facility] 07/19/2023 13:37:13 07/19/19 24 07/19/2023 urina lysis , dipst ick Protein Negati ve Not Available In-Office Order Internal Use Only DO Not Attach Compendium DO Not Attach Compendium, Do Not Delete/merge, [facility] 07/19/2023 13:37:13 07/19/19 24 07/19/2023 urina lysis , dipst ick pH 7.0 Not Available In-Office Order Internal Use Only DO Not Attach Compendium DO Not Attach Compendium, Do Not Delete/merge, [facility] 07/19/2023 13:37:13 07/19/19 24 07/19/2023 urina lysis , dipst ick Blood Negati ve Not Available In-Office Order Internal Use Only DO Not Attach Compendium DO Not Attach Compendium, Do Not Delete/merge, [facility] 07/19/2023 13:37:13 07/19/19 24 07/19/2023 urina lysis , dipst ick Specific Eckert 1.020 Not Available In-Off ice Order Internal Use Only DO Not Attach Compendium DO Not Attach Compendium, Do Not Delete/merge, [facility] 07/19/2023 13:37:13 07/19/19 24 07/19/2023 urina lysis , dipst ick Ketone Negati ve Not Available In-Office Order Internal Use Only DO Not Attach Compendium DO Not Attach Compendium, Do Not Delete/merge, [facility] 07/19/2023 13:37:13 07/19/19 24 07/19/2023 urina lysis , dipst ick Bilirubin Negati ve Not Available In-Office Order Internal Use Only DO Not Attach Compendium DO Not Attach Compendium, Do Not Delete/merge, [facility] 07/19/2023 13:37:13 07/19/19 24 07/19/2023 urina lysis , dipst ick Glucose Negati ve Not Available In-Office Order Internal Use Only DO Not Attach Compendium DO Not Attach Compendium, Do Not Delete/merge, [facility] 07/19/2023 13:37:13 08/30/19 24 08/30/2023 HIV 1+2 Ab+HI V1 p24 Ag [Pres ence] in Serum or Plasm a by Immun oassa y HIV 1+2 Ab+HIV1 P24 Ag [presence] in serum or plasma by immunoassay Non Reacti ve text: non reacti ve Not Available Not Available 12/13/2024 17:46:31 08/30/19 24 08/30/2023 HIV 1+2 Ab+HI V1 p24 Ag [Pres ence] in Serum or Plasm a by Immun oassa y Unknown Analyte No Labora tory eviden ce of HIV infect ion. Not Available Not Available 17:46:31 08/30/19 24 08/30/2023 HIV 1+2 Ab+HI V1 p24 Ag [Pres ence] in Serum or Plasm a by Immun oassa y interpretati on and review of laboratory results Normal Not Available Not Available 10/2024 17:46:31 11/23/19 24 11/23/2023 Prote in/Cr eatin ine [Mass Ratio ] in Urine protein [mass/volume ] in 24 hour urine 17.3 mg/dL high: 11.9mg /dL high Not Available Not Available 12/13/2024 17:46:30 11/23/19 24 11/23/2023 Prote in/Cr eatin ine [Mass Ratio ] in Urine creatinine [mass/volume ] in urine 147.95 mg/dL Not Available Not Available 0 12/13/2024 17:46:30 11/23/19 24 11/23/2023 Prote in/Cr eatin ine [Mass Ratio ] in Urine protein/crea tinine [mass ratio] in urine 0.12 Not Available Not Available 10/2024 17:46:30 11/23/19 24 11/23/2023 Prote in/Cr eatin ine [Mass Ratio ] in Urine interpretati on and review of laboratory results Abnorm al Not Available Not Available 17:46:30 12/07/19 24 12/07/2023 Compr ehens romulo metab olic 1999 panel - Serum or Plasm a glucose [mass/volume ] in serum or plasma 104 mg/dL low: 70mg/d Lhigh: 105mg/ dL Not Available Not Available 12/13/2024 17:46:30 12/07/19 24 12/07/2023 Compr ehens romulo metab olic 1999 panel - Serum or Plasm a sodium [moles/volum e] in serum or plasma 140 mmol/ L low: 136mmo l/Lhig h: 145mmo l/L Not Available Not Available 12/13/2024 17:46:30 12/07/19 24 12/07/2023 Compr ehens romulo metab olic 1999 panel - Serum or Plasm a potassium [moles/volum e] in serum or plasma 3.6 mmol/ L low: 3.5mmo l/Lhig h: 5.1mmo l/L Not Available Not Available 12/13/2024 17:46:30 12/07/19 24 12/07/2023 Compr ehens romulo metab olic 1999 panel - Serum or Plasm a chloride [moles/volum e] in serum or plasma 108 mmol/ L low: 98mmol /Lhigh : 107mmo l/L high Not Available Not Available 12/13/2024 17:46:30 12/07/19 24 12/07/2023 [facility] 1999 panel - Serum or Plasm a carbon dioxide, total [moles/volum e] in serum or plasma 24 mmol/ L low: 22mmol /Lhigh : 29mmol /L Not Available Not Available 12/13/2024 17:46:30 12/07/19 24 12/07/2023 [facility] 1999 panel - Serum or Plasm a calcium [mass/volume ] in serum or plasma 9.3 mg/dL low: 8.4mg/ dLhigh : 10.4mg /dL Not Available Not Available 12/13/2024 17:46:30 12/07/19 24 12/07/2023 [facility] 1999 panel - Serum or Plasm a anion gap in blood by calculation 8 mmol/ L low: 6mmol/ Lhigh: 16mmol /L Not Available Not Available 12/13/2024 17:46:30 12/07/19 24 12/07/2023 [facility] 1999 panel - Serum or Plasm a urea nitrogen [mass/volume ] in serum or plasma 8 mg/dL low: 5.3mg/ dLhigh : 18.7mg /dL Not Available Not Available 12/13/2024 17:46:30 12/07/19 24 12/07/2023 [facility] 1999 panel - Serum or Plasm a creatinine [mass/volume ] in serum or plasma 0.76 mg/dL low: 0.57mg /dLhig h: 1.11mg /dL Not Available Not Available 12/13/2024 17:46:30 12/07/19 24 12/07/2023 [facility] 1999 panel - Serum or Plasm a alkaline phosphatase [enzymatic activity/vol ume] in serum or plasma 93 U/L low: 40U/Lh igh: 150U/L Not Available Not Available 12/13/2024 17:46:30 12/07/19 24 12/07/2023 [facility] 1999 panel - Serum or Plasm a alanine aminotransfe rase [enzymatic activity/vol ume] in serum or plasma 12 U/L low: 0U/Lhi gh: 55U/L Not Available Not Available 12/13/2024 17:46:30 12/07/19 24 12/07/2023 [facility] 2000 panel - Serum or Plasm a aspartate aminotransfe rase [enzymatic activity/vol ume] in serum or plasma 16 U/L low: 5U/Lhi gh: 34U/L Not Available Not Available 12/13/2024 17:46:30 12/07/19 24 12/07/2023 [facility]pr [facility] 1999 panel - Serum or Plasm a protein [mass/volume ] in serum or plasma 7.4 text: 6.4 - 8.3 gm/dL Not Available Not Available 12/13/2024 17:46:30 12/07/19 24 12/07/2023 Compr ens [facility] 1999 panel - Serum or Plasm a albumin [mass/volume ] in serum or plasma 3.4 text: 3.4 - 5.0 gm/dL Not Available Not Available 12/13/2024 17:46:30 12/07/19 24 12/07/2023 Compr ens [facility] 1999 panel - Serum or Plasm a bilirubin.to gracy [mass/volume ] in serum or plasma 0.3 mg/dL low: 0.2mg/ dLhigh : 1.2mg/ dL Not Available Not Available 12/13/2024 17:46:30 12/07/19 24 12/07/2023 [facility] panel - Serum or Plasm a glomerular filtration rate [volume rate/area] in serum, plasma or blood by creatinine-b ased formula (CKD-epi)/1. 73 sq M text: >=90 mL/min /1.73 m2 Not Available Not Available 12/13/2024 17:46:30 12/07/19 24 12/07/2023 [facility]pr e[facility] 2000 panel - Serum or Plasm a interpretati on and review of laboratory results Abnorm al Not Available Not Available 17:46:30 01/03/20 24 01/03/2024 Chori ogona dotro pin [Pres ence] in Urine HCG qual urine Negati ve text: negati ve Not Available Not Available 12/13/2024 17:55:28 01/03/20 24 01/03/2024 Chori ogona dotro pin [Pres ence] in Urine interpretati on and review of laboratory results Normal Not Available Not Available 10/2024 17:55:28 12/20/19 25 12/19/2024 pregn aleyda test, urine HCG positi ve Not Available In-Office Order Internal Use Only DO Not Attach Compendium DO Not Attach Compendium, Do Not Delete/merge, [id number] 12/19/2024 15:58:13 05/17/2005/17/2023 [place], obste tric, 1st trime ster No observ ation record ed. [email or web address] Not Available 12/2022 10:29:12 Result Notes None recorded. Problems Name Problem SNOMED Code Status Onset Date Resolution Date Notes Provider Name and Address Organization Details Recorded Time Deliveri es by [id number] Completed Cheyanne Simon MD Attn: Accounting ,[address], [place], [address] [place] [address] , [place] [facility] 12:16:23 Herpes simplex 15563792 Completed Cheyanne Simon MD Attn: Accounting ,[address], [place], [address] [place] [address] , [place] [facility] 1 12:16:23 Sickle cell trait 08421187 Completed Cheyanne Simon MD Attn: Accounting ,[address] [place], [address] , [place] [facility] 12:16:23 Herpes simplex 63521850 Completed Cheyanne Simon MD Attn: Accounting ,[address] [place], [address] , [place] [facility] 3 14:17:00 Sickle cell trait 19605914 Completed Cheyanne Simon MD Attn: Accounting ,[address] [place], [address] , [place] [facility] 3 14:17:00 Sickle cell trait 80508598 Completed Bridger Rosario MD Attn: Accounting ,[address] [facility], [place], [address] , [place] [facility] 4 01:09:19 Bacteria l vaginosi s 882558712 Completed 02/13/2019 [place]quivel[place] [facility] 1 12:17:35 Bacteria l vaginosi s 591763520 Completed Kathy Espinoza PA-C Attn: Accounting ,[address] [facility], [place], [address] , [place] [facility] 6 15:10:00 Sickle cell trait 15412522 Active Bridger Rosario MD Attn: Accounting ,[address] [facility], [place], [address] , [place] [facility] 4 01:09:19 Sickle cell trait 96595220 Completed Kathy Espinoza PA-C Attn: Accounting ,[address] [facility], [place], [address] , [place] [facility] 6 15:10:00 Herpes simplex 22736353 Active Cheyanne Simon MD Attn: Accounting ,[address] [facility], [place], [address] , [place] [facility] 3 14:17:00 Herpes simplex 15559422 Completed Kathy Espinoza PA-C Attn: Accounting ,[address] [facility], [place], [address] , [place] [facility] 6 15:10:00 Vitamin D deficien cy 05702154 Active Kathy Espinoza PA-C Attn: Accounting ,[address] [facility], [place], [address] , [place] [facility] 6 15:10:00 Vitamin D deficien cy 38927309 Completed Kathy Espinoza PA-C Attn: Accounting ,[address] [facility], [place], [address] , [place] [facility] 6 15:10:00 Deliveri es by [id number] Completed 12/23/2021 Bridger Rosario MD Attn: Accounting ,[address] [facility], [place], [address] , [place] [facility] 3 09:43:43 Deliveri es by [id number] Completed Kathy Espinoza PA-C Attn: Accounting ,[address] [facility], [place], [address] , [place] [facility] 6 15:10:00 Candidia sis 00863900 Completed 02/13/2019 TREE BARNES Attn: Accounting ,[address] [facility], [place], [address] , [place] [facility] 9 13:55:55 Candidia sis 42244329 Completed Kathy Espinoza PA-C Attn: Accounting ,[address] [place], [address] , [place] [facility] 6 15:10:00 Yellow vaginal discharg e 950836909 Completed 03/15/2018 [place] [facility] 8 15:59:02 Subcutan eous contrace ptive implant palpable 462615073 Completed 201611/09/2019 [place] [facility] 0 15:36:21 Irregula r periods 06816842 Completed 201611/09/2019 [place] [facility] 0 15:36:31 Vaginal discharg e 689981831 Completed 201603/15/2018 [place] [facility] 8 15:58:59 Depressi ve disorder 24355293 Active 2017 Controll ed on zoloft 25mg Bridger Rosario MD Attn: Accounting ,[address] [place], [address] , [place] [facility] 4 01:09:19 Gastroes ophageal reflux disease 794489758 Completed 201712/23/2021 Jeff Knott MD Attn: Accounting ,[address] [facility] [place], [address] , [place] [facility] 2 12:04:42 Depressi ve disorder 06267355 Completed 2017 Cheyanne Simon MD Attn: Accounting ,[address] [facility], [place], [address] , [place] [facility] 1 12:16:23 Depressi ve disorder 54691491 Completed 2017 Controll ed on zoloft 25mg Bridger Rosario MD Attn: Accounting ,[address] [facility], [place], [address] , [place] [facility] 4 01:09:19 Group B Streptoc occus carrier [id number] 03 Active 2017 repeat CS, nothing to do. Bridger Rosario MD Attn: Accounting ,[address] [facility], [place], [address] , [place] [facility] 4 01:09:19 Group B Streptoc occus carrier [id number] 03 Completed 2017 Cheyanne Simon MD Attn: Accounting ,[address] [facility], [place], [address] , [place] [facility] 1 12:16:22 Group B Streptoc occus carrier [id number] 03 Completed 2017 repeat CS, nothing to do. Bridger Rosario MD Attn: Accounting ,[address] [facility], [place], [address] , [place] [facility] 4 01:09:19 Pregnanc y 53259387 Completed 201911/09/2019 Cheyanne Simon MD Attn: Accounting ,[address] [facility], [place], [address] , [place] [facility] 5 01:08:15 Abnormal progeste carmella 974104614 Completed 2019 Cheyanne Simon MD Attn: Accounting ,[address] [place], [address] , [place] [facility] 1 12:16:23 Hypereme sis gravidar um 79002329 Completed 201912/23/2021 Jeff Knott MD Attn: Accounting ,[address] [place], [address] , [place] [facility] 2 12:04:10 Hypereme sis gravidar 41501868 Completed 2019 Cheyanne Simon MD Attn: Accounting ,[address] [place], [address] , [place] [facility] 1 12:16:23 Vaginal delivery followin g previous section 388082604 Completed 2019 TOLAC-4V BRIAN Cheyanne Simon MD Attn: Accounting ,[address] [place], [address] , [place] [facility] 1 12:16:23 Vaginal delivery followin g previous section 218954032 Active 2019 TOLAC-4V BRIAN Cheyanne Simon MD Attn: Accounting ,[address] [place], [address] , [place] [facility] 1 12:16:23 Candidia sis of vagina 47896468 Completed 2019 Cheyanne Simon MD Attn: Accounting ,[address] [place], [address] , [place] [facility] 1 12:16:23 Candidia sis of vagina 64350907 Active 2019 Cheyanne Simon MD Attn: Accounting ,[address] [place], [address] , [place] [facility] 1 12:16:23 Bacteria l vaginosi s 977877510 Active 2020 Francisco esquivel, [place] - [facility] 1 12:17:35 Adult health examinat ion Active 2021 Jeff Knott MD Attn: Accounting ,[address] [place], [address] , [place] [facility] 2 11:56:54 Tenderne ss of chest wall 593249533 Active 2021 Jeff Knott MD Attn: Accounting ,[address] [facility], [place], [address] , [place] [facility] 2 11:57:10 Venereal disease screenin g Active 2021 eJff Knott MD Attn: Accounting ,[address] [facility], [place], [address] , [place] [facility] 2 12:00:27 Abnormal weight loss 800670055 Active 2021 Jeff Knott MD Attn: Accounting ,[address] [facility], [place], [address] , [place] [facility] 2 12:02:15 Pregnanc y 58596135 Completed 202104/28/2022 Cheyanne Simon MD Attn: Accounting ,[address] [facility], [place], [address] , [place] [facility] 5 01:08:15 Deliveri es by [id number] Completed 2021 Cheyanne Simon MD Attn: Accounting ,[address] [facility], [place], [address] , [place] [facility] 3 14:17:00 Deliveri es by [id number] Active 2021 CS x3, plan for repeat w/ Dr. Osmin Rosario MD Attn: Accounting ,[address] [place], [address] , [place] [facility] 4 01:09:19 Deliveri es by [id number] Completed 2021 CS x3, plan for repeat w/ Dr. Osmin Rosario MD Attn: Accounting ,[address] [place], [address] , [place] [facility] 4 01:09:19 Human papillom a virus infectio n 834560139 Completed 2021 Cheyanne Simon MD Attn: Accounting ,[address] [place], [address] , [place] [facility] 3 14:17:00 Human papillom a virus infectio n 072565390 Active 2021 Cheyanne Simon MD Attn: Accounting ,[address] [facility], [place], [address] , [place] [facility] 3 14:17:00 Iron profile outside referenc e range 68499427819 101 Active 2021 Jeff Knott MD Attn: Accounting ,[address] [facility], [place], [address] , [place] [facility] 2 18:26:05 Pregnanc y 57884899 Completed 202207/30/2024 Cheyanne Simon MD Attn: Accounting ,[address] [facility], [place], [address] , [place] [facility] 5 01:08:15 Acute urinary tract infectio n 539541671 Completed 2022 tx w/ Christal Rosario MD Attn: Accounting ,[address] [facility], [place], [address] , [place] [facility] 4 01:09:19 Acute urinary tract infectio n 096594041 Active 2022 tx andria/ Christal Rosario MD Attn: Accounting ,[address] [facility], [place], [address] , [place] [facility] 4 01:09:19 Marijuan a user 627625434 Active 2022 Advised to decrease /elimina te use, and to only buy from the dispensa mitesh Rosario MD Attn: Accounting ,[address] [facility], [place], [address] , [place] [facility] 4 01:09:19 Marijuan a user 406471748 Completed 2022 Advised to decrease /elimina te use, and to only buy from the dispensa mitesh Rosario MD Attn: Accounting ,[address] [facility], [place], [address] , [place] [facility] 4 01:09:19 Nausea 787394144 Completed 2022 tx w/ B6 BID and unisom PRN Bridger Rosario MD Attn: Accounting ,[address] [facility], [place], [address] , [place] [facility] 4 01:09:19 Nausea 663851195 Active 2022 tx w/ B6 BID and unisom PRN Bridger Rosario MD Attn: Accounting ,[address] [facility], [place], [address] , [place] [facility] 4 01:09:19 Carpal tunnel syndrome of right wrist 05826810203 9108 Active 2022 Maria Del Carmen Boston MD Attn: Accounting ,[address] [facility], [place], [address] , [facility] - [facility] 3 09:45:01 Problem Notes None recorded. Procedures Surgical History Date Name Laterality Status Provider Name and Address Organization Details Recorded Time 3 Date of Last Pap Smear completed Leyla [place]velace [place] [facility] 02/19/2023 09:16:03 0 SECTION (SURG) completed TREE LAZO Attn: Accounting,[address] [facility], [place], [address], [place] [facility] 06/20/2020 16:57:49 8 Control Implant Removal completed Leyla [place]velace [place] [facility] 03/15/2018 15:45:18 5 Control Implant Insertion completed Jaxon Thompson [place] [facility] 02/18/2015 13:04:27 5 Caesarean Section completed Hien Morejon [place] [facility] 02/18/2015 12:00:45 3 Caesarean Section completed Jaxon Thompson [place] [facility] 10/01/2014 15:35:30 Imaging Results None recorded. Procedure Notes None recorded. Medical Equipment None Reported. Allergies No known drug allergies Medications Name Sig Start Date Stop Date Status Note LastModified by Organization Details LastModified Time Prescriptio n - Prior Authorizati on Request 02/03 completed Not Available Not Available Not Available miconazole 7 2% cre APPLY 1 APPLICATO RFUL VAGINALLY ONCE DAILY AT BEDTIME FOR 7 DAYS 07/19 completed Not Available Not Available Not Available multivitami n tablet Take 1 tablet every day by oral route. 03/03 completed Not Available Not Available Not Available cyclobenzap rine 10 mg tablet TAKE 1 TABLET BY MOUTH TWICE DAILY NEEDED FOR MUSCLE SPASM 03/03 completed Not Available Not Available Not Available amoxicillin 500 mg capsule 03/15 completed Not Available Not Available Not Available Vitamin B-6 25 mg tablet Take 1 tablet twice a day by oral route for 90 days. active Not Available Not Available No t Available labetalol 200 mg tablet Take 1 tablet twice a day by oral route. 07/22 completed Not Available Not Available Not Available clindamycin HCl 300 mg capsule active Not Available Not Available Not Available Stool Softener 100 mg capsule TAKE 1 CAPSULE BY MOUTH TWICE DAILY FOR CONSTIPAT ION active Not Available Not Available No t Available azithromyci n 250 mg tablet TAKE 2 TABLETS (500 MG) BY ORAL ROUTE ONCE DAILY FOR 1 DAY THEN 1 TABLET (250 MG) BY ORAL ROUTE ONCE DAILY FOR 4 DAYS 12/06 completed Not Available Not Available Not Available ibuprofen 800 mg tablet 02/13 completed Not Available Not Available Not Available Lidocaine Viscous 2 % mucosal solution 10/13 completed Not Available Not Available Not Available fluconazole 150 mg tablet Take 1 tablet by oral route. 03/03 completed Not Available Not Available Not Available hydrocodone 5 mg-acetamin ophen 325 mg tablet TAKE 1 TABLET BY MOUTH EVERY 6 HOURS NEEDED FOR PAIN 03/03 completed Not Available Not Available Not Available metronidazo le 0.75 % (37.5 mg/5 gram) vaginal gel Insert 1 applicato rful every day by vaginal route at bedtime for 5 days. 03/03 completed Not Available Not Available Not Available Monistat 7 2 % vaginal cream Insert 1 applicato rful every day by vaginal route at bedtime for 7 days. 2022 active Not Available Not Available Not Avai lable ceftriaxone 250 mg solution for injection Take 250 mg by injection route. 03/15 completed Not Available Not Available Not Available Ferrex 150 mg iron capsule TAKE 1 CAPSULE BY MOUTH TWICE DAILY WITH MEALS 07/22 completed Not Available Not Available Not Available terconazole 0.8 % vaginal cream Insert 1 applicato rful every day by vaginal route. 04/11 completed Not Available Not Available Not Available penicillin V potassium 500 mg tablet Take 1 tablet twice a day by oral route for 7 days. 03/03 completed Not Available Not Available Not Available metronidazo le 500 mg tablet TAKE 1 TABLET BY MOUTH TWICE DAILY FOR 7 DAYS active Not Available Not Available No t Available nifedipine ER 30 mg tablet,exte nded release TAKE 1 TABLET BY MOUTH ONCE DAILY active Not Available Not Available No t Available ciprofloxac in 500 mg tablet TAKE 1 TABLET BY MOUTH EVERY 12 HOURS 02/19 completed Not Available Not Available Not Available omeprazole 40 mg capsule,del ayed release Take 1 capsule every day by oral route as directed for 30 days. 10/10 completed Not Available Not Available Not Available aspirin 81 mg tablet,rut yed release TAKE 1 TABLET BY MOUTH ONCE DAILY active Not Available Not Available No t Available acyclovir 800 mg tablet Take 1 tablet every day by oral route. 03/03 completed Not Available Not Available Not Available Vitamin tablet Take 1 tablet every day by oral route as directed. 04/30 completed Not Available Not Available Not Available oxycodone-a cetaminophe n 5 mg-325 mg tablet active Not Available Not Available No t Available amoxicillin 875 mg tablet 10/13 completed Not Available Not Available Not Available famotidine 20 mg tablet TAKE 1 TABLET BY MOUTH TWICE DAILY active Not Available Not Available No t Available cephalexin 500 mg capsule Take 1 capsule every 6 hours by oral route for 7 days. 06/14 completed Not Available Not Available Not Available ranitidine 150 mg tablet Take 1 tablet twice a day by oral route as directed for 30 days. 07/10 completed Not Available Not Available Not Available progesteron e micronized 200 mg capsule Take 1 capsule twice a day by oral route. 04/11 completed Not Available Not Available Not Available sertraline 25 mg tablet TAKE 1 TABLET BY MOUTH ONCE DAILY active Not Available Not Available No t Available ibuprofen 600 mg tablet TAKE 1 TABLET BY MOUTH EVERY 6 HOURS NEEDED active Not Available Not Available No t Available polyethylen e glycol 3350 17 gram/dose oral powder MIX 17 GRAMS OF POWDER IN 8 OUNCES OF LIQUID AND DRINK ONCE DAILY active Not Available Not Available No t Available norethindro ne (contracept romulo) 0.35 mg tablet active Not Available Not Available No t Available ondansetron 4 mg disintegrat ing tablet Take 1 tablet every 8 hours by oral route as needed. 04/11 completed Not Available Not Available Not Available metoclopram neftali 10 mg tablet Take 1 tablet 4 times a day by oral route as directed. 04/11 completed Not Available Not Available Not Available amoxicillin 875 mg-potassiu m clavulanate 125 mg tablet Take 1 tablet every 12 hours by oral route for 7 days. 07/19 completed Not Available Not Available Not Available Vitamin 27 mg iron-0.8 mg tablet TAKE 1 TABLET BY MOUTH ONCE DAILY DIRECTED active Not Available Not Available No t Available azithromyci n 500 mg tablet Take 2 tablets every day by oral route for 1 day. 03/15 completed Not Available Not Available Not Available escitalopra m 10 mg tablet TAKE 1 TABLET BY MOUTH ONCE DAILY 07/22 completed Not Available Not Available Not Available lactulose 10 gram/15 mL oral solution TAKE 15 ML BY MOUTH DAILY 05/23 completed Not Available Not Available Not Available calcium 600 mg (as carbonate)- vitamin D3 10 mcg (400 unit) tablet 03/03 completed Not Available Not Available Not Available cholecalcif aleks (vitamin D3) 1,250 mcg (50,000 unit) capsule Take 1 capsule every week by oral route. 03/03 completed Not Available Not Available Not Available FeroSul 325 mg (65 mg iron) tablet TAKE 1 TABLET BY MOUTH ONCE DAILY active Not Available Not Available No t Available Calcium with Vitamin D3 600 mg (carbonate) -10 mcg (400 unit) capsule Take 1 capsule twice a day by oral route. 07/22 completed Not Available Not Available Not Available Nexplanon 68 mg subdermal implant Inject 1 implant by subcutane ous route. 03/15 completed Not Available Not Available Not Available ferrous gluconate 324 mg (37.5 mg iron) tablet Take 1 tablet twice a day by oral route. 07/22 completed Not Available Not Available Not Available 28 mg iron-800 mcg tablet Take 1 tablet every day by oral route as directed. 2024 active Not Available Not Available Not Avai lable calcium 600 mg (as carbonate)- vitamin D3 20 mcg (800 unit) tablet Take 1 tablet twice a day by oral route for 30 days. 03/03 completed Not Available Not Available Not Available Linzess 145 mcg capsule Take 1 capsule every day by oral route. 04/11 completed Not Available Not Available Not Available Linzess 290 mcg capsule Take 1 capsule every day by oral route. 04/11 completed Not Available Not Available Not Available Xulane 150 mcg-35 mcg/24 hr transdermal patch Apply 1 patch every week by transderm al route. 10/13 completed Not Available Not Available Not Available Take Action 1.5 mg tablet Take 1 tablet by oral route as directed for 1 day. 05/07 completed Not Available Not Available Not Available Slynd 4 mg (28) tablet Take 1 tablet every day by oral route. 11/06 completed Not Available Not Available Not Available Se- 19 29 mg iron-1 mg tablet TAKE 1 TABLET BY MOUTH ONCE DAILY DIRECTED active Not Available Not Available No t Available Twirla 120 mcg-30 mcg/24 hr transdermal patch Apply 1 patch every week by transderm al route for 21 days. 03/03 completed Not Available Not Available Not Available Tab-A-Edward 400 mcg tablet 11/06 completed Not Available Not Available Not Available Vitals Date Recorded Body weight Provider Name an d Address Organization Details Last Updated DateTime 07/19/2023 55154.80378 g Bridger Rosario MD Attn: Accounting,[address] [place], [address], [place] - [facility] 07/19/2023 12:42:48 Date Recorded Body height Body mass index (BMI) Systolic And Diastolic Provider Name and Address Organization Details Last Updated DateTime 07/19/2023 160.02 cm 27.1 kg/m2 112/72 mm[Hg] Leyla Lovelace MA [facility] 07/19/2023 11:53:22 Date Recorded Body height Body mass index (BMI) Body weight Oxygen saturation Oxygen saturation in Arterial blood by Pulse oximetry Heart rate Systolic And Diastolic Provider Name and Address Organization Details Last Updated DateTime 160.02 cm 29.1 kg/m2 46196.1 5 g 98 % 98 % 95 /min 110/68 mm[Hg] Francesca Murphy MA [facility] 15:54:01 Date Recorded Body weight Provider Name an d Address Organization Details Last Updated DateTime 05/17/2023 50085.75469 g Bridger Rosario MD Attn: Accounting,[address] [place], [address], [facility] 05/18/2023 16:26:10 Date Recorded Body height Body mass index (BMI) Systolic And Diastolic Provider Name and Address Organization Details Last Updated DateTime 05/17/2023 160.02 cm 25 kg/m2 116/72 mm[Hg] Leyla Lovelace MA [facility] 05/17/2023 09:22:25 Date Recorded Body weight Provider Name an d Address Organization Details Last Updated DateTime 06/14/2023 12285.57531 g Che Monique Attn: Accounting,[address] [place], [address], [facility] 06/20/2023 22:48:56 Date Recorded Body height Body mass index (BMI) Systolic And Diastolic Provider Name and Address Organization Details Last Updated DateTime 06/14/2023 160.02 cm 26.7 kg/m2 120/80 mm[Hg] Leyla Lovelace MA [facility] 06/14/2023 11:13:42 Social History Question Answer Notes LastModified by Organizat ion Details LastModified Time Tobacco Smoking Status Former Smoker Black and mild and marijuana Francesca Murphy MA null, [facility] 12/19/2024 15:51:29 Do You Have An Advance Directive? No Information not available 10/01/2014 If You Are , What Was Your Level Of Alcohol Consumption Prior To ? None Information not available 10/01/2014 How Many Years Have You Consumed Alcohol? 0 Information not available 12/26/2014 Is Anesthesia Consult Planned? No Information not available 10/01/2014 Plan No Information no t available 10/01/2014 Is Blood Transfusion Acceptable In An Emergency? Yes Information not available 10/01/2014 What Is Your Level Of Caffeine Consumption? Moderate Information not available 10/01/2014 Live With Cats/exposure To Cat Litter No Information not available 10/01/2014 How Much Tobacco Do You Chew? None Information not available 10/01/2014 In The 14 Days Before Symptom Onset, Have You Had Close Contact With A Laboratory-confi rmed COVID-19 While That Case Was Ill? No Information not available 11/06/2020 In The 14 Days Before Symptom Onset, Have You Had Close Contact With A Person Who Is Under Investigation For COVID-19 While That Person Was Ill? No Information not available 11/06/2020 Have You Been To An Area Known To Be High Risk For COVID-19? No Information not available 11/06/2020 What Type Of Diet Are You Following? REGULAR Information not available 10/01/2014 Which Illicit Or Recreational Drugs Have You Used? Pt Denies Information not available 12/26/2014 Education 12 Information no t available 10/01/2014 What Is The Highest Grade Or Level Of School You Have Completed Or The Highest Degree You Have Received? [id number] Information not available 11/06/2020 Have There Been Any Changes To Your Family Or Social Situation? No Information not available 10/01/2014 Frequent Air Travel Yes Information not available 10/01/2014 Illicit Drugs Pre- Marijuana Information not available 10/11/2019 How Many Years Have You Used Illicit Or Recreational Drugs? 10 Information not available 11/06/2020 Live Alone Or With Others? With Others Information not available 10/01/2014 Marital Status Single Informatio n not available 10/01/2014 What Was The Date Of Your Most Recent Tobacco Screening? 12/19/2024 Information not available 12/19/2024 How Many Children Do You Have? 3 Information not available 06/20/2020 What Is Your Current Pack Years? 30ormorepack years Information not available 04/08/2023 Do You Have Any Pets? No Information not available 11/06/2020 What Is Your Relationship Status? Domestic Partner Information not available 04/08/2023 Do You Use Your Seat Belt Or Car Seat Routinely? Yes Information not available 11/06/2020 Seat Belts Used Routinely No Information not available 10/01/2014 Are You Sexually Active? Yes Information not available 10/01/2014 Do You Have Smoke And Carbon Monoxide Detectors In Your Home? Yes Smoke Information not available 10/01/2014 At What Age Did You Start Smoking Tobacco? 22 Information not available 11/06/2020 Are You Passively Exposed To Smoke? Yes Information not available 10/01/2014 How Much Tobacco Do You Smoke? No Information not available 10/11/2019 Smoking Pre- No Information not available 10/01/2014 General Stress Level Medium Information not available 10/01/2014 Do You Use Sunscreen Routinely? No Information not available 10/01/2014 Supplements Vit Information not available 10/01/2014 Has Tobacco Cessation Counseling Been Provided? Yes [email or web address] Information not available 02/13/2019 On What Date Was Tobacco Cessation Counseling Provided? 07/19/2023 Information not available 07/19/2023 How Many Years Have You Smoked Tobacco? 10 Information not available 04/08/2023 Have You Used IV Drugs? No Information not available 11/06/2020 How Many Years Have You Used E-cigarettes Or Vape? 1 Information not available 04/08/2023 Sex: Female Functional Status Question Answer Note LastModified by Organizat ion Details LastModified Time Do you use any illicit or recreational drugs? No marijuana Information not available 12/19/2024 Do you or have you ever used any other forms of tobacco or nicotine? No Information not available 11/06/2020 What is your level of alcohol consumption? None Information not available 12/26/2014 Do you or have you ever used smokeless tobacco? Never used smokeless tobacco Information not available 10/11/2019 Are you currently employed? No Information not available 10/01/2014 What is your occupation? unemployed not working now Information not available 11/06/2020 Do you or have you ever used e-cigarettes or vape? Former user of electronic cigarettes Information not available 04/08/2023 What is your exercise level? Occasional Information not available 10/01/2014 Mental Status None recorded. Family History Relationship Description Onset Age of this Age Resolved Age Notes LastModified by Organization Details LastModified Time Father Heart disease [email or web address] Not available 01/14 09:12:17 Brother Diabetes mellitus [email or web address] Not available 01/14 09:12:17 Mother Cirrhosis of liver 44 [email or web address] Not available 01/14 09:12:17 Medical History Condition Response Other Y High Blood Pressure N Atrial Fibrillation N Breast Cancer N Lung Disease N Depression N COPD N Blood Clots N Breast Problem N Anesthesia Complications N Headaches/Migraines N Anxiety Disorder N Muscle, Joint, or Bone Problems N Arthritis N Infertility N Polyps N Acid Reflux (GERD) N Cancer N Stroke N Endometriosis N High Cholesterol N Liver Disease N Fibromyalgia N Headaches Y Kidney Disease N Heart Problems N Thyroid Problems N Kidney or Bladder Problems N GI Problems N Acne N Eating Disorder N Anemia N Heart Attack ([place]) N Diabetes N Ovarian Cancer N Blood Transfusions N Seizures/Epilepsy N Abuse/Domestic Violence N Asthma N Allergies N Hepatitis N Heart Disease N Pre-Eclampsia N Hypertension N Heart Failure N Osteoporosis N Gynecological History Statement/Question Response Abnormal Pap Y Date of LMP 08/08/2024 On BCP's at Conception? N STIs/STDs N HPV Vaccine N Age at Menarche 16 Current Control Method Age at First Child 23 Sexually Active? Y Menses Monthly N Date of Last Pap Smear 02/19/2023 Sexual Problems? N LMP Approximate Desired Control Method Patch Obstetrics History GPAL:G 5 P 3 0 1 3 Type Value Multiple Births 0 Full Term 3 Induced 1 Spontaneous 0 Premature 0 Living 3 Ectopics 0 Total 5 Immunizations Vaccine Type Date Status Note Provider Nam e and Address Organization Details Recorded Time Influenza, split virus, quadrivalent, preservative 6 completed Not Available [facility] 07/29/2019 02:46:45 Influenza, split virus, trivalent, PF 5 completed Not Available [facility] 12/19/2024 15:39:51 Tdap 4 completed Not Available [facility] 12/19/2024 15:39:51 Tdap 0 completed Leyla Lovelace MA [place], [place] - [place] 03/08/2020 10:50:04 Past Encounters Encounter ID Performer Location Encounter Start Date Encounter Closed Date Diagnosis/Indication Diagnosis SNOMED-CT Code Diagnosis ICD10 Code Diagnosis IMO Codes Diagnosis Note [id number] MD Brittni Hubbard ([employer]) [address] [place] [address] 37112-217 0 10/01/2014 15:07:32 10/01/2014 16:11:02 Normal [id number] MD Brittni Calderon ([employer]) [address] [place] [address] 94212-784 0 12/05/2014 11:00:40 12/05/2014 12:34:52 Normal [id number] [facility] [id number] [facility] [address] [place] [address] 22489-122 0 12/26/2014 11:15:41 12/26/2014 13:07:10 Normal [id number] Deliveries by [id number] [facility] [id number] MD Brittni Calderon ([employer]) [address] [place] [address] [id number] 0 01/03/2015 15:11:06 01/03/2015 16:07:07 Normal [id number] Deliveries by [id number] Streptococcus carrier [id number] MD Brittni Calderon ([employer]) [address] [place] [address] [id number] 0 01/10/2015 15:31:27 01/10/2015 17:09:29 Normal [id number] Deliveries by [id number] Jaxon Thompson MD [facility] ([employer]) [address] [place] [address] 34706-995 0 01/17/2015 11:08:51 01/17/2015 12:45:00 Third trimester [id number] [facility] [address] [place] [address] [id number] 0 02/18/2015 11:22:59 02/18/2015 12:57:41 Postoperative visit [id number] 3 weeks s/p (repeat) Incision healing well. Implantati on of subcutaneous contraceptive [id number] MD Brittni Porras (Adult Med) [address] [place] [address] [id number] 0 05/07/2016 14:36:39 05/07/2016 16:07:15 Mild depression 441386812 F32.0 Will readdress when she establishe s for PCPThe father of her children is currently incarcerat ed Gynecologi c examination 96837653 Z01.411 Venereal d isease screening 180179709 Z11.3 Yellow vag inal discharge 985755493 N89.8 Will treat for gonorrhea and chlamydiaA dvised condomsAdv ised no sex for 2 weeks Active or passive immunization 095789541 Z23 [id number] MD Brittni Porras (Adult Med) [address] [place] [address] [id number] 0 05/21/2016 12:33:49 05/21/2016 15:39:48 Bacterial vaginosis 104462090 N76.0 Never picked up the medication - will resend medication Sickle cell trait 633134 00 D57.3 Adult heal th examination 376353802 Z00.01 25YO AA female ehre to establish care with PCP [id number] MD Brittni Porras (Peds) [address] [place] [address] [id number] 0 10/26/2016 11:22:52 10/26/2016 11:46:41 Irregular periods 54507707 N92.6 Will initiate patch x 3 monthsAdvi sed that stress can affect her cycleWill RTC 3 months for follow on cycle - advised that hoping the patch will help to stop her cycles again Subcutaneo us contraceptive implant palpable 057218529 Z30.49 [id number] MD Brittni Proras (Adult Med) [address] [place] [address] [id number] 0 01/26/2017 11:00:59 01/27/2017 18:28:57 Irregular periods 60321455 N92.6 Resolved at this point - advised she can d/c Xulane Vaginal discharge 601663 006 N89.8 Will check swab Subcutaneo us contraceptive implant palpable 205387425 Z30.49 [id number] MD Brittni Man (Adult Med) [address] [place] [address] [id number] 0 10/13/2017 14:11:46 10/13/2017 15:26:15 Depressive disorder 25096152 F32.0 Patient does not want to see counseling at this timeAdvise d any SI/HI to go to the ERPatient declined medication at this time as well Gastroesop hageal reflux disease 229857945 K21.0 K21.9 Advised to stay away from spicy and greasy foodsAdvis ed to stay away from fatty foodsDo not eat within 2 hours of going to bedStay sitting up after mealsNo smoking At increas ed risk of sexually transmitted infection 973991830 Z20.2 [id number] MD Brittni Man (Adult Med) [address] [place] [address] [id number] 0 02/03/2018 10:43:08 02/07/2018 11:37:56 At increased risk of sexually transmitted infection 561738965 Z20.2 Patient requesting to be treated for GC,chlamyd ia today in office, will treat Advised to always use condoms [id number] MD Brittni Calderon ([employer]) [address] [place] [address] [id number] 0 03/15/2018 15:19:34 03/15/2018 17:16:16 Removal of subcutaneous contraceptive done 9401849976 81210 Z30.46 At increas ed risk of sexually transmitted infection 092106063 Z20.2 Sickle cell trait 209385 00 D57.3 Family dany nning surveillance 890600230 Z30.09 Bacterial vaginosis 4197 97173 N76.0 Depressive disorder 3548 9007 F32.9 [id number] TREE BARNES (Adult Med) [address] [place] [address] 04725-625 0 02/13/2019 12:48:35 02/14/2019 09:54:09 Vaginal discharge 992990205 N89.8 Complainin g of foul vaginal discharge and increased thin, clear discharge x 1 week UA in the office was normalPati ent swabbed herself with the nuswab, agreed to wait until test results are back for treatment Constipation 46350187 K5 9.00 Complainin g of abdominal pain and bloating, has not had a bowel movement x 2-3 days and she states that tends to be her normal- Educated patient to drink at least 65 ounces of water daily and avoid caffeine, increase fiber (ex: fruit vegetables ), regular exercise, go to the bathroom when you first feel the urge, may try Fiber One or Raisin Bran, may add Flaxseed Powder 1-3 Tablespoon s in liquids or salads etc., if several days with no BMs 4-5 days may try Miralax as per bottle directions . - Provided patient with constipati on care for home- Patient does not like powder forms of medication s, will also prescribe docusate capsules, take as needed and do not use long-term because may cause rebound constipati on [id number] TREE BARNES (Adult Med) [address] [place] [address] 85576-227 0 05/30/2019 09:15:25 05/30/2019 18:00:43 Gynecologic examination 73547127 Z01.419 Gynecologi macario exam performed in office todayNorma l exam besides white, thick clumped together discharge in vaginal canal (did not appear like yeast, almost appeared to be retained toilet paper or something) - Nuswab and pap smear performed Epigastric pain 80171418 R10.13 Complainin g of intermitte nt episodes of epigastric pain x 2 months.Pat ient unsure what causes it, states it occurs multiple times a day, it's a sharp 8/10 pain that will last minutes and then resolve.Ad mits pain worse with spicy food.Does not smoke or drink alcohol.De nies fever, chills, nausea, vomiting, diarrhea, melena, or constipati on.- Will start a trial of ranitidine to see if this improves her symptoms- Gave her handout of supportive care at home and foods to avoid Constipation 59404292 K5 9.00 Admits that constipati on has improved since last visit Adult [facility] th examination 574197979 Z00.00 PHQ 08/20 was negative in office today (4 out of 27) [id number] MD Brittni Calderon ([employer]) [address] [place] [address] 63950-865 0 10/11/2019 09:55:21 10/12/2019 13:52:06 Routine care 977288785 Z34.91 Venereal d isease screening 850289144 Z11.3 screening 2437 04062 Z36.85 Deliveries by [id number] O[address] reptococcus carrier [id number] 103 Z22.330 Herpes simplex 72536563 B00.9 Depressive disorder 3548 9007 F32.9 Sickle cell trait 628734 00 D57.3 [id number] [facility] [address] [place] [address] 86926-020 0 11/09/2019 15:17:06 11/10/2019 11:08:50 Deliveries by [id number] O82 Abnormal progesterone 13 0808253 R94.7 Depressive disorder 3548 9007 F32.9 Herpes simplex 31687734 B00.[address] reptococcus carrier 9296311180 103 Z22.330 Sickle cell trait 295167 00 D57.3 Routine an tenatal care 947862172 Z34.91 [id number] [facility] [address] [place] [address] 06429-727 0 11/13/2019 11:48:49 11/15/2019 07:20:28 Routine care 063755570 Z34.[address] reptococcus carrier [id number] 103 Z22.330 Acute urin wei tract infection 964893489 N39.0 Abnormal progesterone 13 2872799 R94.7 Deliveries by [id number] O82 Sickle cell trait 150889 00 D57.3 [id number] Francisco Bear MD [facility] ([employer]) [address] [place] [address] [id number] 0 12/07/2019 12:07:38 12/08/2019 08:55:41 Routine care 839713347 Z34.91 Gastroesop hageal reflux disease 935889399 K21.9 Deliveries by [id number] O[address] reptococcus carrier [id number] 103 Z22.330 Herpes simplex 18660541 B00.9 Sickle cell trait 342218 00 D57.3 Hyperemesi s gravidarum 56466934 O21.0 [id number] Francisco Bear MD [facility] ([employer]) [address] [place] [address] 12201-245 0 01/04/2020 10:26:48 01/05/2020 13:38:31 Abnormal progesterone 561254032 R94.7 Deliveries by [id number] O82 Depressive disorder [address] reptococcus carrier 3122330779 103 Z22.330 Herpes simplex 52595859 B00.9 Vitamin D deficiency 347 77031 E55.9 Routine an tenatal care 683909469 Z34.91 [id number] Francisco Bear MD [facility] ([employer]) [address] [place] [address] 40211-893 0 02/05/2020 10:37:41 02/06/2020 17:29:00 Routine care 133905810 Z34.82 Deliveries by [id number] O[address] reptococcus carrier 8699196573 103 Z22.330 Herpes simplex 30689840 B00.9 Depressive disorder 3548 9007 F32.9 Abnormal progesterone 13 7758304 R94.7 Vaginal de livery following previous section 081507834 O34.219 TOLAC Chronic id iopathic constipation 90492135 K59.04 [id number] MD Brittni Calderon ([employer]) [address] [place] [address] 26408-744 0 03/05/2020 12:22:31 03/06/2020 13:43:53 Routine care 533201449 Z34.82 screening 2437 12319 Z36.9 will come and get GTT done in the morning TBD Deliveries by [id number] O[address] reptococcus carrier 2828957072 103 Z22.330 Herpes simplex 60609073 B00.9 Sickle cell trait 184728 00 D57.3 Vaginal de livery following previous section 047534144 O34.219 TOLAC , appointmen t on 03/07/20 with MFM Hyperemesi s gravidarum 22570629 O21.0 Exposure t o sexually transmissible disorder 658215186 Z20.2 [id number] MD Brittni Calderon ([employer]) [address] [place] [address] 59165-219 0 03/14/2020 11:36:06 03/14/2020 13:14:06 Routine care 477057906 Z34.[address] reptococcus carrier 8612565636 103 Z22.330 Herpes simplex 34800145 B00.9 Hyperemesi s gravidarum 09931706 O21.0 Sickle cell trait 606280 00 D57.3 Deliveries by [id number] O82 Depressive disorder 3548 9007 F32.9 Vaginal de livery following previous section 917723085 O34.219 Appointmen t on 03/07/20 with MFM, ultimately decided to choose delivery. Still going to [facility] for more informatio n [id number] MD Brittni Calderon ([employer]) [address] [place] [address] 15776-806 0 03/28/2020 14:47:37 03/30/2020 11:25:29 Deliveries by [id number] O82 Vaginal de livery following previous section 298085197 O34.219 Appointmen t on 03/07/20 with MFM, ultimately decided to choose delivery. Still going to [facility] for more informatio n Routine an tenatal care 677461567 Z34.93 Chronic id iopathic constipation 36503600 K59.04 [id number] [facility] ([employer]) [address] [place] [address] 86360-497 0 04/11/2020 15:43:16 04/15/2020 15:17:44 Deliveries by [id number] O82 Plan for repeat . Routine an tenatal care 172640301 Z34.93 YINA at 31w3d. Preg c/b GBS, HSV, SC Trait, MDD, and deliveries by c section. She reports movement from [place]. She states she has had some Grupo-Hi cks for a few weeks with mild cramping around her umbilicus, now resolved. She denies contractio ns, LOF, and bloody discharge. Fundal height reassuring and FHT present at 145. Pt has US scheduled for 04/16. RTC in 2 weeks. Herpes simplex 61986177 B00.9 On suppressiv e antiviral. [id number] MD Brittni Calderon ([employer]) [address] [place] [address] 11518-176 0 05/01/2020 15:49:49 05/02/2020 11:09:58 Routine care 498682953 Z34.93 Deliveries by [id number] O82 Depressive disorder [address] reptococcus carrier 2770697870 103 Z22.330 Herpes simplex 86523312 B00.9 Sickle cell trait 014424 00 D57.3 [id number] MD Brittni Calderon ([employer]) [address] [place] [address] 92161-052 0 05/13/2020 11:15:26 05/13/2020 13:03:52 Routine care 313912176 Z34.93 29 y/o with history of hyperemesi s gravidarum , sickle cell trait, GBS presents for YINA at 36w0d. Deliveries by [id number] O[address] reptococcus carrier 5062030640 103 Z22.330 Hyperemesi s gravidarum 99078582 O21.0 Sickle cell trait 056282 00 D57.3 Vaginal de livery following previous section 708937653 O34.219 Appointmen t on 03/07/20 with [facility], ultimately decided to choose delivery. Still going to [facility] for more informatio n [id number] MD Brittni Calderon ([employer]) [address] [place] [address] 39668-076 0 05/23/2020 15:09:23 05/24/2020 19:21:38 Routine care 865410080 Z34.93 29 y/o with history of hyperemesi s gravidarum , sickle cell trait, GBS presents for YINA at 37w3d. Deliveries by [id number] O82 Scheduled for 06/07/20. WTC/WLB instructio ns provided. Group B St reptococcus carrier 2137917944 103 Z22.176 [id number] [facility] [address] [place] [address] 58630-820 0 05/30/2020 11:54:16 06/07/2020 09:47:05 Routine care 293678203 Z34.93 29 y/o with history of hyperemesi s gravidarum , sickle cell trait, GBS presents for YINA at 38w3d. scheduled for 06/07 Deliveries by [id number] O82 Scheduled for 06/07/20. WTC/WLB instructio ns provided. Group B St reptococcus carrier [id number] 103 Z22.330 Herpes simplex 67551695 B00.9 Sickle cell trait 786896 00 D57.3 [id number] [facility] [address] [place] [address] 49959-243 0 06/20/2020 16:07:59 06/21/2020 11:19:43 care 636927732 Z39.2 Deliveries by [id number] O82 [id number] TREE LAZO [facility] ([employer]) [address] [place] [address] 72068-807 0 06/20/2020 16:16:52 07/02/2020 13:46:42 care 022426941 Z39.2 29yo F here for 2 week visit/inci emmett check. Discussed physical, mental, emotional effects. EPDS administer ed, negative. Advised at least 12-18 months between pregnancie s to allow for full recovery. Slynd for contracept ion. Continue prenatals. Past pregn aleyda history of section 800817453 Z98.890 Repeat on 06/03. Incision healing well. -induced hypertension 4032520873 9100 O13.9 Pt c/o headaches. BP 124/86 and 140/100 in office. Start labetalol as prescribed . BP cuff ordered to monitor. RTC in 1 week for BP check. ER precaution s discussed. [facility] nning surveillance 382986724 Z30.09 Discussed different control options with patient such as OCPs, patch, ring, Depo Provera shot, Nexplanon, and IUDs. Advised progestin only. Pt interested in Slynd. [id number] MD Brittni Calderon ([employer]) [address] [place] [address] 09230-943 0 07/22/2020 08:04:18 07/24/2020 13:21:13 Group B Streptococcus carrier [id number] 103 Z22.330 Candidiasis of vagina 72 132617 B37.3 Sickle cell trait 129232 00 D57.3 [facility] nning surveillance 963695938 Z30.09 [id number] MD Brittni Calderon ([employer]) [address] [place] [address] 03356-495 0 11/06/2020 08:57:19 11/07/2020 11:55:27 Depressive disorder 28669784 F32.9 Herpes simplex 59407257 B00.9 Sickle cell trait 072185 00 D57.3 [facility] nning surveillance 065265048 Z30.09 On Slynd, wants to switch Deliveries by [id number] O82 Vaginal de livery following previous section 139175189 O34.219 Bacterial vaginosis 4197 66286 N76.0 Candidiasis of vagina [address] reptococcus carrier 8420485312 103 Z22.330 Exposure t o sexually transmissible disorder 038858210 Z20.2 Patient to come in and will obtain sample in clinic [id number] MD Brittni Guerra (Adult Med) [address] [place] [address] 57126-339 0 12/23/2021 11:01:16 12/24/2021 12:41:13 Sickle cell trait 95618682 D57.3 Tenderness of chest wall 860190087 R07.89 Adult heal th examination 939499430 Z00.00 Venereal d isease screening 727890520 Z11.3 Abnormal weight loss 267 933860 R63.4 Vitamin D deficiency 347 80512 E55.9 [id number] TREE LAZO ([employer]) [address] [place] [address] 17277-918 0 03/03/2022 08:35:15 03/10/2022 08:18:10 Routine care 577450901 Z34.91 31yo F presenting for initial visit at 9+4 weeks. Denies bleeding, cramping, discharge. Nausea that is manageable at this time. Initial labs drawn today, order for first trimester US provided. OB education provided and ectopic and SAB precaution s discussed. RTC in 4 weeks, cfDNA at next visit. Deliveries by [id number] O82 x3. Plan for repeat . Sickle cell trait 716048 00 D57.3 FOB has been tested and negative. [id number] TREE LAZO ([employer]) [address] [place] [address] 64847-971 0 04/30/2022 09:12:04 05/12/2022 13:43:34 Elective termination of 60414607 Z33.2 Pt has been having persistent bleeding since 04/01/22 after induced procedure. She denies post-proce dure imaging. Concerns for possible retained POC, follow up TVUS. Discussed control options, pt would like to wait until these symptoms have been resolved first. Abnormal u terine bleeding 2522068201 9100 N93.9 Pt states she has been filling about 1 pad an hour since 04/01/22 after induced procedure with complaints of fatigue, ice cravings, abdominal cramping and discomfort with intermitte nt headaches. She is not taking iron supplement s. Discussed getting CBC and iron panel today to evaluate for anemia. Recommend she start OTC iron supplement . Will follow up with results. [id number] TREE LAZO ([employer]) [address] [place] [address] [id number] 0 02/19/2023 09:04:56 03/13/2023 13:31:17 Gynecologic examination 66791704 Z01.419 Cervical cancer screening: Last Pap 03/03/22 was NILM/HPV+, Updated todayBreas t cancer screening: Reviewed recommenda tions for initiation at age 40 with annual screening. Discussed SBESTI screening: routine nuswab, treat as needed. Safe sex practices discussed. Contracept ion: declinesDi et/exercis e: Counseled regarding importance of physical activity, healthy diet and appropriat e calcium intake.RTC in 1yr Vaginal discharge [id number] 006 N89.8 Pt reporting odorous white discharge, noted on exam. Empiric treatment for BV, follow up results. [id number] TREE LAZO (FIELD MARKETING LEAD) [address] [place] [phone] 04/08/2023 11:00:44 04/13/2023 11:42:43 Routine care [id number] Z34.91 [id number] MD Jermain Leblanc [address] [address] 05/04/2023 11:24:42 05/11/2023 03:47:56 Depressive disorder [id number] F32.9 Patient has uncontroll ed depression as evidenced by patient report. Sertraline is a preferred agent. risk cannot be ruled out with sertraline , but the benefit outweighs the risks in this case as untreated depressive symptoms may lead to poor care for the developing fetus. 25 mg once daily is an appropriat e starting dose. Plan: Initiate sertraline 25 mg, 1 tablet by mouth once daily.Init iate therapist counseling referral. [id number] Z33.1 Patient received a Tdap shot in 2019, but it s important to get another one during the 27th to 36th week of once she gets to that point. She should also be educated on getting a flu and RSV vaccine at some point during the , according to the most recent ACOG guidelines . Plan:Yamilex nue vitamins.C ontinue antibiotic course of cephalexin . [id number] MD Brittni Leblanc ([employer]AD) [address] [place] [phone] 05/17/2023 09:08:36 05/17/2023 09:10:42 Routine care [id number] Z34.91 Tasha is a 32 y/o MATEO at 12/03/23 by LMP supported by 1st trimester US. Pre-Pregna ncy Weight: 141, BMI: within normal limitsPre- Eclampsia Risk: neg Continuity Resident: Juan lu List:- h/o CSx3- sickle cell trait- depression controlled on zoloft- nausea in 1st trimester- UTI in 1st trimester on Keflex INITIAL LABS Date: 04/08/23Bl ood Type: ARh Type: posAntibod y Screen: negCBC: 6.9/13.5/4 2.0VDRL/RP R: nonreactiv eUrine Culture: e coliHBsAg: negHepC: nonreactiv eHIV: nonreactiv eRubella: immuneVari emigdio: immuneCF:n egSS: consistent with sickle cell trait Dating US: Date 05/17/23 LMP: 02/16/2023 GA 11.3 MATEO: 12/03/23 Patient is sure of dating.DUS : Date 05/17/23 AUA: 11.4 MATEO: 12/02/23 Discrepanc y <5 daysEDD: 12/03/23 Based on LMP supported by US Pap: UTDVaginal Cultures: Yeast: neg;BV: negGC:neg; Chlamydia: neg;Trich: neg Situationa l Awareness: Lena: negativePH Q9: negative GAD7: negativeAC ES: 1Resilienc e: highSDOH:D esired delivering facility: [facility] lling to participat e in group visits: noPlanning to breastfeed : yesCircumc ision yesEpidura l yesPost-pa rtum contracept ion will consider IUD vs nexplanon vs patchesOpe n to vaccinatio n:Tdap: yesCOVID: noFlu: noHome visits ok: no Marijuana user [id number] F12.90 - Discussed the risk of MJ use such as fpc early onset dementia and a link between MJ use and early NV.- [facility] due to the danger of probable contaminat ion w/ fentanyl, methamphet amine, or heroin. Nausea [id number] R11.0 discussed strategies to mitigate nausea in . Vaginal de livery following previous section [id number] O34.[address] Solorio consultati on in 3rd trimester. [id number] BRIELLE MASON MD [facility] ([employer]) [address] [place] [phone] 06/14/2023 10:55:07 06/28/2023 10:28:10 Routine care [id number] Z34.92 Tasha is a 32 y/o G5.8O8917 presenting @ 15.3 dated by LMP consistent w 11 week ultrasound ; here for routine OB exam. Today, _She reports to having vaginal irritation for 3 day duration. Today she has whitish discharge. She denies any odor. No associated lesions or sores. No erythema. Patient also has symptoms of carpal tunnel syndrome. UA positive for large leukocytes - Pending urine culture will treat with amoxicilli n clavulanic Complicate d by:- GBS carrier, sickle cell trait care, prior x3, marijuana use in , depression with SSRI use in INITIAL LABS Date: 04/08/23Bl ood Type: ARh Type: posAntibod y Screen: negCBC: 6.9/13.5/4 2.0VDRL/RP R: nonreactiv eUrine Culture: e coliHBsAg: negHepC: nonreactiv eHIV: nonreactiv eRubella: immuneVari emigdio: immuneCF:n egSS: consistent with sickle cell trait Dating US: Date 05/17/23 LMP: 02/16/2023 GA 11.3 MATEO: 12/03/23 Patient is sure of dating.DUS : Date 05/17/23 AUA: 11.4 MATEO: 12/02/23 Discrepanc y <5 daysEDD: 12/03/23 Based on LMP supported by US Pap: UTDVaginal Cultures: Yeast: neg;BV: negGC:neg; Chlamydia: neg;Trich: neg Situationa l Awareness: Lena: negativePH Q9: negative GAD7: negativeAC ES: 1Resilienc e: highSDOH:D esired delivering facility: [facility] lling to participat e in group visits: noPlanning to breastfeed : yesCircumc ision yesEpidura l yesPost-pa rtum contracept ion will consider IUD vs nexplanon vs patchesOpe n to vaccinatio n:Tdap: yesCOVID: noFlu: noHome visits ok: no Vaginal discharge 181222 006 N89.8 - patient with whitish discharge and irritation of vaginal region. Denies any lesions or rash. 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 Symptoms not reproducib le on Spurling's test or tapping radial or ulnar tunnel. Hand is warm to touch and cap refill less than 2- trial of splint with monitoring of symptoms Depressive disorder 3548 9007 F32.9 - the patient with a history of depression controlled with Zoloft. No SI or HI- will plan for respirator y support at delivery [id number] Maria Del Carmen Boston MD [facility] ([employer]) [address] [place] [phone] 07/19/2023 11:27:11 07/28/2023 11:47:11 Routine care [id number] Z34.92 Tasha is a 32 y/o G5.5H3237 presenting @ 20.3 dated by LMP consistent w 11 week ultrasound ; here for routine OB exam. Complicate d by:- GBS carrier, sickle cell trait care,- prior x3- marijuana use in , - depression with SSRI use in INITIAL LABS Date: 04/08/23Bl ood Type: ARh Type: posAntibod y Screen: negCBC: 6.9/13.5/4 2.0VDRL/RP R: nonreactiv eUrine Culture: e coliHBsAg: negHepC: nonreactiv eHIV: nonreactiv eRubella: immuneVari emigdio: immuneCF:n egSS: consistent with sickle cell trait Dating US: Date 05/17/23 LMP: 02/16/2023 GA 11.3 MATEO: 12/03/23 Patient is sure of dating.DUS : Date 05/17/23 AUA: 11.4 MATEO: 12/02/23 Discrepanc y <5 daysEDD: 12/03/23 Based on LMP supported by US Pap: UTDVaginal Cultures: Yeast: neg;BV: negGC:neg; Chlamydia: neg;Trich: neg Situationa l Awareness: Lena: negativePH Q9: negative GAD7: negativeAC ES: 1Resilienc e: highSDOH:D [facility] in group visits: noPlanning to breastfeed : yesCircumc ision yesEpidura l yesPost-pa rtum contracept ion will consider IUD vs nexplanon vs patchesOpe n to vaccinatio n:Tdap: yesCOVID: noFlu: noHome visits ok: no 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 Symptoms not reproducib le on Spurling's test or tapping radial or ulnar tunnel. Hand is warm to touch and cap refill less than 2- trial of splint with monitoring of symptoms Depressive disorder 3548 9007 F32.9 - the patient with a history of depression controlled with Zoloft. No SI or HI- will plan for respirator y support at delivery [id number] Marcos Solorio MD [facility] (Adult Med) [address] [place] [phone] 12/19/2024 15:38:08 12/20/2024 12:29:55 test positive [id number] Z32.01 [id number] Per pt LMP 08/08/24- MATEO 05/14/2519 weeks 0 days gestationD iscussed labor and precaution s- handouts givenRefer ral to OB referralSt art vitamins Sickle cell trait 745970 00 D57.3 Overweight 319998213 E66 .3 BMI 29.1 Depression screening 171 859051 Z13.31 3882931 PHQ9- Negative (1 out of 27) Mental hea lth screening 503652125 Z13.30 [id number] GAD7- Negative (0 out of 21) Health Concerns Section Related Observation LastModified by Organization Detai ls LastModified Time None Recorded Concern Status LastModified by Organization Details LastModified Time None Recorded Advance Directives Directive N: Payers Insurance Date Sequence Insurance Name Policy Number Policy Michael Covered Member ID Michael Member ID Guarantor Name 12/13/2024 2 [place] [facility] Tasha Schmitt [id number] Tasha Schmitt 10/11/2019 SLIDING FEE SCHEDULE - DISCOUNT Tasha Schmitt 12/13/2024 2 [place] [facility] - DOS PRIOR TO 2025 (MEDICAID REPLACEMENT - HMO) [id number] Tasha Scmhitt [id number] Tasha Schmitt 12/13/2024 1 [facility] Tasha Schmitt [id number] Tasha Schmitt 12/13/2024 1 [facility] ([place] [id number] Tasha Schmitt [id number] Tasha Schmitt 12/13/2024 1 [place] [facility] - DOS PRIOR TO 2025 (MEDICAID REPLACEMENT - HMO) [id number] Tasha Schmitt [id number] Tasha Schmitt 12/16/2024 1 [place] [facility] - DOS PRIOR TO 2025 (MEDICAID REPLACEMENT - HMO) [id number] Tasha Schmitt [id number] Tasha Schmitt 12/13/2024 3 [employer] [id number] Tasha Schmitt [id number] Tasha Schmitt 10/01/2014 SLIDING FEE SCHEDULE - DISCOUNT Tasha Schmitt 12/13/2024 1 [facility] (MEDICAID HMO) [id number] Tasha Schmitt [id number] Tasha Schmitt 12/13/2024 2 [place] [facility] [place] [facility] Tasha Schmitt [id number] Tasha Schmitt 12/13/2024 1 [facility] (MEDICAID HMO) [id number] Tasha Schmitt [id number] Tasha Schmitt 02/13/2019 1 *SELF PAY* Griffith Notes Date Note Type Note Provider Name and Address Organization Details Recorded Time 05/04/2023 text/html 32 y/o female coming in for a follow up. She is taking a vitamin daily. Her past medical history is notable for depression and she is not being treated for that. Patient reports depressive symptoms, lost her father a few months ago, and her mother 2 years ago. Patient shows interest in starting an antidepressant. Patient reports no longer smoking marijuana as of a few days ago. Also reports not smoking cigarettes. AUDI SOTELO PharmD Attn: Accounting, [address] [place], [address], [facility] 05/10/2023 11:00:10 05/17/2023 text/html Tasha is a 32 y/o presenting @ 11.3 dated by LMP supported by 1st trimester US; here for initial OB exam. Initial US performed 1st trimester. Preg complicated by: h/o depression, CSx3, sickle cell trait, GBS carrier, UTI in , MJ use, nausea in . She has no significant concerns today and reports normal antepartum symptoms of . She endorses good movement. She denies vaginal bleeding, vaginal discharge, loss of fluid, or contractions. She has not had a visit to ED or Triage since last appointment. Maria Del Carmen Boston MD Attn: Accounting, [address] [place], [address], [facility] 05/21/2023 13:28:48 06/14/2023 text/html Tasha is a 32 y/o G5.1G7649 presenting @ 15.3 dated by LMP consistent w 11 week ultrasound; here for routine OB exam. She has no significant concerns today and reports normal antepartum symptoms of . She denies vaginal bleeding, vaginal discharge, loss of fluid, or contractions. She has not had a visit to ED or Triage since last appointment. She reports to having vaginal irritation for 3 day duration. Today she has whitish discharge. She denies any odor. No associated lesions or sores. No erythema. 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 no urgency Patient reports to right hand tingling numbness. Symptoms aggravated while patient is L in reports pain waking her up at night. Regular hands relieves some of the pain. Pain in median nerve distribution. Denies any trauma to hand wrist or elbow. No neck pain or neck tightness. No associated weakness or cold sensation in hands. Maria Del Carmen Boston MD Attn: Accounting[address] [place], [address], [facility] 06/23/2023 09:45:24 07/19/2023 text/html Tasha is a 32 y/o presenting @ 20.3 dated by LMP consistent w 11 week ultrasound; here for routine OB exam. She has no significant concerns today and reports normal antepartum symptoms of . She denies vaginal bleeding, vaginal discharge, loss of fluid, or contractions. She has not had a visit to ED or Triage since last appointment. Maria Del Carmen Boston MD Attn: Accounting[address] [facility], [place], [address], [facility] 07/27/2023 12:18:54 12/19/2024 text/html ROS as noted in the HPI 34 y/o AA F here for confirmation. LMP was August 08 2024. Pt has had 4 c-sections. Pt is wanting referral to [place] for delivery. Pt denies any vaginal bleeding, N/V/D, abdominal cramping, urinary symptoms at this time. Marcos Solorio MD Attn: Accounting[address] [place], [address], [facility] 12/19/2024 17:43:23 OBGyn Episode Ob Episode Information Episode Created Date Number of Fetuses Patient Bloodtype Patient rh Status Prepregnancy Weight lbs Domestic Partner Domestic Partner Phone Father Name Cloth Shrinking Machine Operator Helper Status 04/08/20 23 1 A Positive 141 Juan Pablo Moore CLOSED Fetus Data First Name Last Name Admitted to NICU Weight (g) Sex Living Outcome Pediatric Complications Fetus ID Race Codes Race Delivery Type [id number] Problems Problem Notes [facility]: [facility] Feeding: Breas t Circumcision: Yes Epidural: Repeat PPBC: Patch Cloth Shrinking Machine Operator Helper: Dr. Moore Problem Name Start Date End Date Resolution Snomed Code Not e Deliveries by 03/03/2022 [id number] 004 CS x3, plan for repeat w/ Dr. Solorio Marijuana user 05/18/2023 [id number] Advi sed to decrease/eliminate use, and to only buy from the dispensary Depressive disorder 10/13/2017 28658518 Controlled on zoloft 25mg Sickle cell trait 94938629 Acute urinary tract infection 04/16/2023 [id number] tx w/ Keflex Group B Streptococcus carrier 03/15/2018 [id number] repeat CS, not johann to do. Nausea 05/18/2023 [id number] tx w/ B6 BID and unisom PRN Mateo Calculation Initial Mateo Date Initial Exam Date Initial Exam Provider Initial Ultrasound Date Last Menstrual Period Date Ultra Sound Weeks Gestation 12/03/2023 04/08/2023 [email or web address] 05/17/2023 02/26/2023 11 Eighteen To Twenty Week Mateo Update Ultra Sound Date Fundal Height At Umbil Quickening Date Ultra Sound Latest Weeks Gestation Final Mateo Confirmed By Final Mateo Confirmed Date Final Mateo Date Ultra Sound Latest Days Gestation 0 12/03/19 24 0 Pre- Flowsheet Flowsheet Date 04/08/2023 Wilson Score Blood Edema Fundus Height Fundus Units Glucose Ketones Leukocytes Nitrite Labor Signs Protein Cervic Dilation Cervic Effacement Cervic Station neg none none negative neg Type Weight in lbs Pre/Post Dialysis Refused With clothes 140.141209783260 BP Diastolic BP Location Tested BP Systolic BP Type 80 132 sitting Fetus Heart Rate Present Fetus Movement Comments Flowsheet Date 05/04/2023 Wilson Score Blood Edema Fundus Height Fundus Units Glucose Ketones Leukocytes Nitrite Labor Signs Protein Cervic Dilation Cervic Effacement Cervic Station Type Weight in lbs Pre/Post Dialysis Refused BP Diastolic BP Location Tested BP Systolic BP Type Fetus Heart Rate Present Fetus Movement Comments Flowsheet Date 05/17/2023 Wilson Score Blood Edema Fundus Height Fundus Units Glucose Ketones Leukocytes Nitrite Labor Signs Protein Cervic Dilation Cervic Effacement Cervic Station neg none none negative neg Type Weight in lbs Pre/Post Dialysis Refused With clothes 141.921323979223 BP Diastolic BP Location Tested BP Systolic BP Type 72 116 sitting Fetus Heart Rate Present Fetus Movement Comments Tasha is a 32 y/o presenting @ 11.3 dated by LMP supported by 1st trimester US; here for initial OB exam. Initial US performed 1st trimester. Preg complicated by: h/o depression, CSx3, sickle cell trait, GBS carrier, UTI in , MJ use, nausea in . Dates confirmed w/ US today. Continue PNV, discussed lifestyle modifications, anticipatory guidance provided, plan for f/u in 4 wks. Flowsheet Date 06/14/2023 Wilson Score Blood Edema Fundus Height Fundus Units Glucose Ketones Leukocytes Nitrite Labor Signs Protein Cervic Dilation Cervic Effacement Cervic Station neg none none negative none neg Type Weight in lbs Pre/Post Dialysis Refused With clothes 151.004802173761 BP Diastolic BP Location Tested BP Systolic BP Type 80 120 sitting Fetus Heart Rate Present A 132 Present Fetus Movement Comments Tasha is a 32 y/o G5.3P30 13 presenting @ 15.3 dated by LMP consistent w 11 week ultrasound; here for routine OB exam. She has no significant concerns today and reports normal antepartum symptoms of . She denies vaginal bleeding, vaginal discharge, loss of fluid, or contractions. She has not had a visit to ED or Triage since last appointment.She reports to having vaginal irritation for 3 day duration. Today she has whitish discharge. She denies any odor. No associated lesions or sores. No erythema. Urine- burning on urination, no increased freq. no urgency Patient reports to right hand tingling numbness. Symptoms aggravated while patient is L in reports pain waking her up at night. Regular hands relieves some of the pain. Pain in median nerve distribution. Denies any trauma to hand wrist or elbow. No neck pain or neck tightness. No associated weakness or cold sensation in hands.Patient provided with carpal tunnel splint and treated for UTI will LORI at next visit Flowsheet Date 07/19/2023 Wilson Score Blood Edema Fundus Height Fundus Units Glucose Ketones Leukocytes Nitrite Labor Signs Protein Cervic Dilation Cervic Effacement Cervic Station neg none none negative neg Type Weight in lbs Pre/Post Dialysis Refused With clothes 153.344870713107 BP Diastolic BP Location Tested BP Systolic BP Type 72 112 sitting Fetus Heart Rate Present A 164 Fetus Movement Comments Tasha is a 32 y/o G5.3P30 13 presenting @ 20.3 dated by LMP consistent w 11 week ultrasound; here for routine OB exam. complicated by sickle cell trait, depression, h/o CSx3, GBS carrier, MJ use, and UTI in . She has no significant concerns today and reports normal antepartum symptoms of . She denies vaginal bleeding, vaginal discharge, loss of fluid, or contractions. She has not had a visit to ED or Triage since last appointment. carpal tunnel s/s improved. discussed pnv use, anatomy scan due, and routine care in 4 wks. Menstrual History Last Menstrual Date Menses Monthly On Bcp Conception Prior Menses Frequency Hcg Plus Date Menarche Onset Age 0802/26/2023 true false 3 16 Genetic Screening And Infection History Question Response Note Patient's Age Will Be 35 Yea rs Or Older At Estimated Date of Delivery false Thalassemia (Yemeni, French, Mediterranean, Or Background): MCV < 80 false Neural Tube Defect (Meningom yelocele, Spina Bifida, Or Anencephaly) false Congenital Heart Defect false Down Syndrome false Oh-Sachs (eg, Adventist, Cajun, Montserratian-Sri Lankan) f alse Pily Disease false Sickle Cell Disease Or Trait () true Trait Carrier Hemophilia Or Other Blood Disorders false Muscular Dystrophy false Cystic Fibrosis false Austin's Chorea false Mental Retardation/Autism false If Yes, Was Person Tested For Fragile X? false Other Inherited Genetic Or Chromosomal Disorder false Maternal Metabolic Disorder (eg, Type 1 Diabetes, PKU) false Patient Or Baby's Father Had A Child With Defects Not Listed Above false Recurrent Loss, Or A Stillbirth false Medications (including Suppl ements, Vitamins, Herbs, OTC Drugs), Illicit/Recreational Drugs, Alcohol true Start Vitamins If Yes, Agent(s) And Strength/Dosage false Any Other Genetic History false Live With Someone With TB Or Exposed To TB false Patient Or Partner Has History Of Genital Herpes true HSV2 10/2019 Rash Or Viral Illness Since Last Menstrual Perio d false History Of STD, Gonorrhea, Chlamydia, HPV, Syphi lis false Other Infection History false History of HIV false History of Hepatitis false Prior GBS-infected child false Plans and Education First Trimester Discussed Date Discussion Item Discussion Note Discuss ed By 04/08/2023 Anticipated course o f care 04/08/23: Care plan discussed: sulema briseno 04/08/2023 Alcohol 04/08/2023: AC Education: sulema briseno 04/08/2023 Intimate partner violence 023: ACOG Education: sulema briseno 04/08/2023 Environmental/work hazards 2022: ACOG Education: sulema briseno 04/08/2023 Screening for aneuploidy 04/08/20 23: ACOG Education: sulema briseno 04/08/2023 Nutrition counseling ; special diet; dietary precautions (mercury, listeriosis) 04/08/2023: ACOG Education: sulema briseno 04/08/2023 Childbirth classes/h ospital facilities 04/08/2023: ACOG Education: sulema briseno 04/08/2023 HIV and other routin e tests 04/08/2023: ACOG Education: sulema briseno 04/08/2023 Risk factors identif ied by history 04/08/2023: ACOG Education: sulema briseno 04/08/2023 Weight gain counseling 04/08/2023 : ACOG Education: sulema briseno 04/08/2023 Exercise 04/08/2023: ACOG Education: sulema briseno 04/08/2023 Teratogens 04/08/2023: ACOG Education: sulema briseno 04/08/2023 Use of any medicatio ns (including supplements, vitamins, herbs, or OTC drugs) 04/08/2023: ACOG Education: sulema briseno 04/08/2023 04/08/2023: ACOG Education: sulema briseno 04/08/2023 Sexual activity 04/08/2023: ACOG Education: sulema briseno 04/08/2023 Tobacco/smoking cess ation counseling (ask, advise, assess, assist, and arrange) 04/08/2023: ACOG Education: sulema briseno 04/08/2023 Illicit/recreational drugs 2022: ACOG Education: sulema briseno 04/08/2023 Dental care 04/08/2023: ACOG Education: sulema briseno 04/08/2023 Travel 04/08/2023: ACOG Education: sulema briseno 04/08/2023 Seat belt use 04/08/2023: ACOG Education: sulema briseno 04/08/2023 Indications for ultrasonography 04/08/2023: ACOG Education: sulema briseno 04/08/2023 Avoidance of saunas or hot tubs 04/08/2023: ACOG Education: sulema eastauerkiara 04/08/2023 Toxoplasmosis precau tions (cats/raw meat) 04/08/2023: ACOG Education: ca cashauerlpn Second Trimester Discussed Date Discussion Item Discussion Note Discuss ed By Third Trimester Discussed Date Discussion Item Discussion Note Discuss ed By Delivery Information Delivery Date Delivery Type Labor Anesthesia Weeks Gestation Incision Type Labor Labor Length Hrs Delivered By Post Complications Tubal Sterilization Discharge Date Comments Discharge Information Feeding Method Contraceptive Method Maternal HG B and HCT Levels Ob Episode Information Episode Created Date Number of Fetuses Patient Bloodtype Patient rh Status Prepregnancy Weight lbs Domestic Partner Domestic Partner Phone Father Name Cloth Shrinking Machine Operator Helper Status 03/03/20 22 1 A Positive 146 CLOSED Fetus Data First Name Last Name Admitted to NICU Weight (g) Sex Living Outcome Pediatric Complications Fetus ID Race Codes Race Delivery Type , Induced [id number] Problems Problem Notes Problem Name Start Date End Date Resolution Snomed Code Not e Sickle cell trait 38256370 Human papilloma virus infection 03/10/2022 673100441 Herpes simplex 58690560 Deliveries by 03/03/[id number] 004 Mateo Calculation Initial Mateo Date Initial Exam Date Initial Exam Provider Initial Ultrasound Date Last Menstrual Period Date Ultra Sound Weeks Gestation 10/02/2022 03/03/2022 [email or web address] 12/26/2021 0 Eighteen To Twenty Week Mateo Update Ultra Sound Date Fundal Height At Umbil Quickening Date Ultra Sound Latest Weeks Gestation Final Mateo Confirmed By Final Mateo Confirmed Date Final Mateo Date Ultra Sound Latest Days Gestation 0 10/03/19 23 0 Pre-marino Flowsheet Flowsheet Date 03/03/2022 Wilson Score Blood Edema Fundus Height Fundus Units Glucose Ketones Leukocytes Nitrite Labor Signs Protein Cervic Dilation Cervic Effacement Cervic Station neg none 9 wks none negative neg 0cm 0% - 4 Type Weight in lbs Pre/Post Dialysis Refused With clothes 146.513111385617 BP Diastolic BP Location Tested BP Systolic BP Type 70 128 sitting Fetus Heart Rate Present Fetus Movement Comments 31yo F presenting for i nitial visit at 9+4 weeks. Denies bleeding, cramping, discharge. Nausea that is manageable at this time. Initial labs drawn today, order for first trimester US provided. OB education provided and ectopic and SAB precautions discussed. RTC in 4 weeks, cfDNA at next visit. Flowsheet Date 04/28/2022 Wilson Score Blood Edema Fundus Height Fundus Units Glucose Ketones Leukocytes Nitrite Labor Signs Protein Cervic Dilation Cervic Effacement Cervic Station Type Weight in lbs Pre/Post Dialysis Refused BP Diastolic BP Location Tested BP Systolic BP Type Fetus Heart Rate Present Fetus Movement Comments Follow up call placed to yung schneider who reports terminating 04/01/2022, Follow up appointment scheduled with Provider for April 07:30 AM Menstrual History Last Menstrual Date Menses Monthly On Bcp Conception Prior Menses Frequency Hcg Plus Date Menarche Onset Age 0612/26/2021 true false Genetic Screening And Infection History Question Response Note Patient's Age Will Be 35 Yea rs Or Older At Estimated Date of Delivery false Thalassemia (Yemeni, French, Mediterranean, Or Background): MCV < 80 false Neural Tube Defect (Meningom yelocele, Spina Bifida, Or Anencephaly) false Congenital Heart Defect false Down Syndrome false Oh-Sachs (eg, Adventist, Cajun, Montserratian-Sri Lankan) f alse Pily Disease false Sickle Cell Disease Or Trait () true mom has trait, FOB negative Hemophilia Or Other Blood Disorders false Muscular Dystrophy false Cystic Fibrosis false Austin's Chorea false Mental Retardation/Autism false If Yes, Was Person Tested For Fragile X? false Other Inherited Genetic Or Chromosomal Disorder false Maternal Metabolic Disorder (eg, Type 1 Diabetes, PKU) false Patient Or Baby's Father Had A Child With Defects Not Listed Above false Recurrent Loss, Or A Stillbirth false Medications (including Suppl ements, Vitamins, Herbs, OTC Drugs), Illicit/Recreational Drugs, Alcohol false If Yes, Agent(s) And Strength/Dosage false Any Other Genetic History false Live With Someone With TB Or Exposed To TB false Patient Or Partner Has History Of Genital Herpes true pt Rash Or Viral Illness Since Last Menstrual Period false History Of STD, Gonorrhea, C hlamydia, HPV, Syphilis false Other Infection History false History of HIV false History of Hepatitis false Prior GBS-infected child false Plans and Education First Trimester Discussed Date Discussion Item Discussion Note Discuss ed By 03/03/2022 Anticipated course of care [email or web address] 03/03/2022 Alcohol [email or web address] 03/03/2022 Intimate partner violence cynthia [email or web address] 03/03/2022 Environmental/work hazards j [email or web address] 03/03/2022 Screening for aneuploidy jco [email or web address] 03/03/2022 Nutrition counseling ; special diet; dietary precautions (mercury, listeriosis) [place] [id number] 03/03/2022 Childbirth classes/hospital facilities [place] [address] 03/03/2022 HIV and other routine tests [place] [address] 03/03/2022 Risk factors identif ied by history [place] [id number] 03/03/2022 Weight gain counseling [place] [id number] 03/03/2022 Exercise [place] [id number] 03/03/2022 Teratogens [place] [address] 03/03/2022 Use of any medicatio ns (including supplements, vitamins, herbs, or OTC drugs) [place] [address] 03/03/2022 [place] [address] 03/03/2022 Sexual activity [place] [address] 03/03/2022 Tobacco/smoking cess ation counseling (ask, advise, assess, assist, and arrange) [place] [address] 03/03/2022 Illicit/recreational drugs [place] [address] 03/03/2022 Dental care [place] [address] 03/03/2022 Travel [place] [address] 03/03/2022 Seat belt use [place] [address] 03/03/2022 Indications for ultrasonography [place] [address] 03/03/2022 Avoidance of saunas or hot tubs [place] [address] 03/03/2022 Toxoplasmosis precautions (cats/raw meat) [place] [address] Second Trimester Discussed Date Discussion Item Discussion Note Discuss ed By Third Trimester Discussed Date Discussion Item Discussion Note Discuss ed By Delivery Information Delivery Date Delivery Type Labor Anesthesia Weeks Gestation Incision Type Labor Labor Length Hrs Delivered By Post Complications Tubal Sterilization Discharge Date Comments 2 13.5 EAB 04/28/20 2 2: Follow up call with patient who reports terminati ng 04/01/2022 Discharge Information Feeding Method Contraceptive Method Maternal HG B and HCT Levels Ob Episode Information Episode Created Date Number of Fetuses Patient Bloodtype Patient rh Status Prepregnancy Weight lbs Domestic Partner Domestic Partner Phone Father Name Cloth Shrinking Machine Operator Helper Status 10/11/19 20 1 A Positive CLOSED Fetus Data First Name Last Name Admitted to NICU Weight (g) Sex Living Outcome Pediatric Complications Fetus ID Race Codes Race Delivery Type Jacob Hernandezht false 2863.29 95 F true Full Term PEDS Dr. Luci Moore MD @ [facility] [place] [id number] Black or Afric an Ameri can Repeat Problems Problem Notes 02/05/2020 baby girl, yes to circ if boy, breast and bottle feed, repeat c- section, ppbc going to try patch Peds undecided, cb-rma [facility] - [place] [facility]eds or maybe Jacob Schmitt for baby's name. efrain casarez 04/11/2020 mds schedule c-sect 06/07 @ 10:30 Problem Name Start Date End Date Resolution Snomed Code Not e Vaginal delivery following previous section 03/14/2020 [id number] TO [id number] Hyperemesis gravidarum 12/07/2019 [id number] 01 Candidiasis of vagina 05/18/2020 8342904 0 Group B Streptococcus carrier 03/15/2018 [id number] Abnormal progesterone 10/26/2019 9373870 00 Herpes simplex [id number] Deliveries by 04 Sickle cell trait [id number] Depressive disorder 10/13/2017 [id number] Mateo Calculation Initial Mateo Date Initial Exam Date Initial Exam Provider Initial Ultrasound Date Last Menstrual Period Date Ultra Sound Weeks Gestation 06/10/2020 10/11/2019 [email or web address] 10/16/2019 08/12/2019 6 Eighteen To Twenty Week Mateo Update Ultra Sound Date Fundal Height At Umbil Quickening Date Ultra Sound Latest Weeks Gestation Final Mateo Confirmed By Final Mateo Confirmed Date Final Mateo Date Ultra Sound Latest Days Gestation 10/16/19 20 6 [email or web address] 11/09/2019 020 0 Pre-marino Flowsheet Flowsheet Date 10/11/2019 Wilson Score Blood Edema Fundus Height Fundus Units Glucose Ketones Leukocytes Nitrite Labor Signs Protein Cervic Dilation Cervic Effacement Cervic Station Type Weight in lbs Pre/Post Dialysis Refused Stated 158.694255266205 BP Diastolic BP Location Tested BP Systolic BP Type 74 130 sitting Fetus Heart Rate Present Fetus Movement Comments NOB Flowsheet Date 11/09/2019 Wilson Score Blood Edema Fundus Height Fundus Units Glucose Ketones Leukocytes Nitrite Labor Signs Protein Cervic Dilation Cervic Effacement Cervic Station neg none 9 wks none negative none neg Type Weight in lbs Pre/Post Dialysis Refused Stated 160.026780752582 BP Diastolic BP Location Tested BP Systolic BP Type 72 120 sitting Fetus Heart Rate Present Fetus Movement Comments repeat US and Blood Flowsheet Date 11/13/2019 Wilson Score Blood Edema Fundus Height Fundus Units Glucose Ketones Leukocytes Nitrite Labor Signs Protein Cervic Dilation Cervic Effacement Cervic Station neg none 10 cm none negative none neg Type Weight in lbs Pre/Post Dialysis Refused With clothes 159.691437509527 BP Diastolic BP Location Tested BP Systolic BP Type 76 104 sitting Fetus Heart Rate Present Fetus Movement Comments us/blood Flowsheet Date 12/07/2019 Wilson Score Blood Edema Fundus Height Fundus Units Glucose Ketones Leukocytes Nitrite Labor Signs Protein Cervic Dilation Cervic Effacement Cervic Station neg none 13 wks none moderate Cramping neg Type Weight in lbs Pre/Post Dialysis Refused Weight 153.987727195461 BP Diastolic BP Location Tested BP Systolic BP Type 70 102 sitting Fetus Heart Rate Present A 162 Present Fetus Movement A No Comments maternit; prog Flowsheet Date 01/04/2020 Wilson Score Blood Edema Fundus Height Fundus Units Glucose Ketones Leukocytes Nitrite Labor Signs Protein Cervic Dilation Cervic Effacement Cervic Station neg none 17 wks none negative none neg Type Weight in lbs Pre/Post Dialysis Refused With clothes 155.47349963630 BP Diastolic BP Location Tested BP Systolic BP Type sitting Fetus Heart Rate Present A 154 Present Fetus Movement A Yes Comments yellow dc/afp/prog/us Flowsheet Date 02/05/2020 Wilson Score Blood Edema Fundus Height Fundus Units Glucose Ketones Leukocytes Nitrite Labor Signs Protein Cervic Dilation Cervic Effacement Cervic Station neg none 22 wks none negative none neg Type Weight in lbs Pre/Post Dialysis Refused With clothes 158.624142026517 BP Diastolic BP Location Tested BP Systolic BP Type 75 108 sitting Fetus Heart Rate Present A 141 Present Fetus Movement A Yes Comments Pt here for YINA. Prescribed Linzess for gas and constipation. Depression diagnosis discussed, patient will consider taking medication to prevent depression. Patient interested in trying vaginal , referred to [facility] for TOLAC . Flowsheet Date 03/05/2020 Wilson Score Blood Edema Fundus Height Fundus Units Glucose Ketones Leukocytes Nitrite Labor Signs Protein Cervic Dilation Cervic Effacement Cervic Station neg none 26 cm none negative none neg Type Weight in lbs Pre/Post Dialysis Refused With clothes 160.924584947252 BP Diastolic BP Location Tested BP Systolic BP Type 56 100 sitting Fetus Heart Rate Present A 145 Present Fetus Movement A Yes Comments TOLAC for appointment o n 03/07 with [facility] Flowsheet Date 03/14/2020 Wilson Score Blood Edema Fundus Height Fundus Units Glucose Ketones Leukocytes Nitrite Labor Signs Protein Cervic Dilation Cervic Effacement Cervic Station neg trace 27 wks none negative none neg Type Weight in lbs Pre/Post Dialysis Refused With clothes 162.246521935994 BP Diastolic BP Location Tested BP Systolic BP Type 56 100 Fetus Heart Rate Present A 137 Present Fetus Movement A Yes Comments Appointment on 03/07 with [facility], ultimately decided to choose delivery. Still going to [facility] for more information Flowsheet Date 03/28/2020 Wilson Score Blood Edema Fundus Height Fundus Units Glucose Ketones Leukocytes Nitrite Labor Signs Protein Cervic Dilation Cervic Effacement Cervic Station neg none 29 wks none negative none neg Type Weight in lbs Pre/Post Dialysis Refused With clothes 162.034465672293 BP Diastolic BP Location Tested BP Systolic BP Type 56 110 sitting Fetus Heart Rate Present A 144 Present Fetus Movement A Yes Comments linzess/lactulose Flowsheet Date 04/11/2020 Wilson Score Blood Edema Fundus Height Fundus Units Glucose Ketones Leukocytes Nitrite Labor Signs Protein Cervic Dilation Cervic Effacement Cervic Station neg none 31 wks none negative [place] neg Type Weight in lbs Pre/Post Dialysis Refused Weight 163.172995309142 BP Diastolic BP Location Tested BP Systolic BP Type 60 108 sitting Fetus Heart Rate Present A 145 Present Fetus Movement A Yes Comments YINA at 31w3d. + movemen t. Irregular [place] contractions with mild cramping around her umbilicus, now resolved. She denies LOF, discharge. Pt has next US scheduled for 04/16. Pt still desires repeat . Flowsheet Date 05/01/2020 Wilson Score Blood Edema Fundus Height Fundus Units Glucose Ketones Leukocytes Nitrite Labor Signs Protein Cervic Dilation Cervic Effacement Cervic Station neg none 30 cm none negative none neg Type Weight in lbs Pre/Post Dialysis Refused With clothes 170.209116437259 BP Diastolic BP Location Tested BP Systolic BP Type 62 112 sitting Fetus Heart Rate Present A 155 Present Fetus Movement A Yes Comments Flowsheet Date 05/13/2020 Wilson Score Blood Edema Fundus Height Fundus Units Glucose Ketones Leukocytes Nitrite Labor Signs Protein Cervic Dilation Cervic Effacement Cervic Station none 35 cm Cramping 0cm 0% - 4 Type Weight in lbs Pre/Post Dialysis Refused With clothes 172.884107089144 BP Diastolic BP Location Tested BP Systolic BP Type 72 122 sitting Fetus Heart Rate Present A 175 Present Fetus Movement A Yes Comments Flowsheet Date 05/23/2020 Wilson Score Blood Edema Fundus Height Fundus Units Glucose Ketones Leukocytes Nitrite Labor Signs Protein Cervic Dilation Cervic Effacement Cervic Station neg none 37 wks none negative none neg 0cm 0% - 4 Type Weight in lbs Pre/Post Dialysis Refused With clothes 175.212325854520 BP Diastolic BP Location Tested BP Systolic BP Type 70 120 sitting Fetus Heart Rate Present A 133 Present Fetus Movement A Yes Comments Flowsheet Date 05/30/2020 Wilson Score Blood Edema Fundus Height Fundus Units Glucose Ketones Leukocytes Nitrite Labor Signs Protein Cervic Dilation Cervic Effacement Cervic Station Type Weight in lbs Pre/Post Dialysis Refused BP Diastolic BP Location Tested BP Systolic BP Type 68 116 sitting Fetus Heart Rate Present Fetus Movement Comments Flowsheet Date 06/20/2020 Wilson Score Blood Edema Fundus Height Fundus Units Glucose Ketones Leukocytes Nitrite Labor Signs Protein Cervic Dilation Cervic Effacement Cervic Station Type Weight in lbs Pre/Post Dialysis Refused With clothes 167.832270562315 BP Diastolic BP Location Tested BP Systolic BP Type 86 124 sitting 100 L arm 140 sitting Fetus Heart Rate Present Fetus Movement Comments Flowsheet Date 06/20/2020 Wilson Score Blood Edema Fundus Height Fundus Units Glucose Ketones Leukocytes Nitrite Labor Signs Protein Cervic Dilation Cervic Effacement Cervic Station Type Weight in lbs Pre/Post Dialysis Refused BP Diastolic BP Location Tested BP Systolic BP Type Fetus Heart Rate Present Fetus Movement Comments Menstrual History Last Menstrual Date Menses Monthly On Bcp Conception Prior Menses Frequency Hcg Plus Date Menarche Onset Age 0208/12/2019 Genetic Screening And Infection History Question Response Note Patient's Age Will Be 35 Years Or Older At Estim ated Date of Delivery false Thalassemia (Yemeni, French, Mediterranean, Or Background): MCV < 80 false Neural Tube Defect (Meningomyelocele, Spina Bifi da, Or Anencephaly) false Congenital Heart Defect false Down Syndrome false Oh-Sachs (eg, Adventist, Cajun, Montserratian-Sri Lankan) f alse Pily Disease false Sickle Cell Disease Or Trait () true Trait Hemophilia Or Other Blood Disorders false Muscular Dystrophy false Cystic Fibrosis false Austin's Chorea false Mental Retardation/Autism false If Yes, Was Person Tested For Fragile X? false Other Inherited Genetic Or Chromosomal Disorder false Maternal Metabolic Disorder (eg, Type 1 Diabetes , PKU) false Patient Or Baby's Father Had A Child With Defects Not Listed Above false Recurrent Loss, Or A Stillbirth false Medications (including Suppl ements, Vitamins, Herbs, OTC Drugs), Illicit/Recreational Drugs, Alcohol false If Yes, Agent(s) And Strength/Dosage false Any Other Genetic History false Live With Someone With TB Or Exposed To TB false Patient Or Partner Has History Of Genital Herpes false Rash Or Viral Illness Since Last Menstrual Perio d false History Of STD, Gonorrhea, Chlamydia, HPV, Syphi lis false Other Infection History true GBS History of HIV false History of Hepatitis false Prior GBS-infected child false Plans and Education First Trimester Discussed Date Discussion Item Discussion Note Discuss ed By 02/05/2020 02/05/2020 breast and bottl e, cb-rma cbradshawma Second Trimester Discussed Date Discussion Item Discussion Note Discuss ed By 02/05/2020 Selecting a care provider 02/05/2020 Peds undecided, cb-rma cbradshawma 02/05/2020 family planning/tubal sterilization 02/05/2020 PPBC undecided, cb-rma cbradshawma Third Trimester Discussed Date Discussion Item Discussion Note Discuss ed By 02/05/2020 Anesthesia plans repeat with sp inal [email or web address] 02/05/2020 Circumcision 02/05/20 baby gi rl, if boy yes to circ, cb-rma cbradshawma 02/05/2020 02/05/2020 breast and bottl e, cb-rma cbradshawma 05/23/2020 Labor signs wtc/wlb [email or web address] Delivery Information Delivery Date Delivery Type Labor Anesthesia Weeks Gestation Incision Type Labor Labor Length Hrs Delivered By Post Complications Tubal Sterilization Discharge Date Comments 0 Regional-Sp inal [address] Che Bear MD Hypertension false 06/06/2020 Discharge Information Feeding Method Contraceptive Method Maternal HG B and HCT Levels Breast Patch Ob Episode Information Episode Created Date Number of Fetuses Patient Bloodtype Patient rh Status Prepregnancy Weight lbs Domestic Partner Domestic Partner Phone Father Name Cloth Shrinking Machine Operator Helper Status 12/06/19 15 1 CLOSED Fetus Data First Name Last Name Admitted to NICU Weight (g) Sex Living Outcome Pediatric Complications Fetus ID Race Codes Race Delivery Type 3202.35 952 F Full Term [id number] Primary Mateo Calculation Initial Mateo Date Initial Exam Date Initial Exam Provider Initial Ultrasound Date Last Menstrual Period Date Ultra Sound Weeks Gestation 0 Eighteen To Twenty Week Mateo Update Ultra Sound Date Fundal Height At Umbil Quickening Date Ultra Sound Latest Weeks Gestation Final Mateo Confirmed By Final Mateo Confirmed Date Final Mateo Date Ultra Sound Latest Days Gestation 0 0 Menstrual History Last Menstrual Date Menses Monthly On Bcp Conception Prior Menses Frequency Hcg Plus Date Menarche Onset Age Delivery Information Delivery Date Delivery Type Labor Anesthesia Weeks Gestation Incision Type Labor Labor Length Hrs Delivered By Post Complications Tubal Sterilization Discharge Date Comments 3 Regional- idural 40 false 12 Rosi Discharge Information Feeding Method Contraceptive Method Maternal HG B and HCT Levels Ob Episode Information Episode Created Date Number of Fetuses Patient Bloodtype Patient rh Status Prepregnancy Weight lbs Domestic Partner Domestic Partner Phone Father Name Cloth Shrinking Machine Operator Helper Status 10/02/19 15 1 A Positive [place] CLOS ED Fetus Data First Name Last Name Admitted to NICU Weight (g) Sex Living Outcome Pediatric Complications Fetus ID Race Codes Race Delivery Type Michael Alfonso Cleva ns false 2919.99 85 M true Full Term [id number] 2054-5 Black or Afric an Ameri can Problems Problem Notes Baby Cuca Rodriguez Problem Name Start Date End Date Resolution Snomed Code Not e Bacterial vaginosis 872674992 Sickle cell trait 95040255 Herpes simplex 01757349 Vitamin D deficiency 21160227 Candidiasis [id number] Deliveries by [id number] Mateo Calculation Initial Mateo Date Initial Exam Date Initial Exam Provider Initial Ultrasound Date Last Menstrual Period Date Ultra Sound Weeks Gestation 01/28/2015 10/01/2014 08/31/2014 04/22/2014 18 Eighteen To Twenty Week Mateo Update Ultra Sound Date Fundal Height At Umbil Quickening Date Ultra Sound Latest Weeks Gestation Final Mateo Confirmed By Final Mateo Confirmed Date Final Mateo Date Ultra Sound Latest Days Gestation 10/09/19 15 23 [email or web address] 12/12/2014 015 6 Pre- Flowsheet Flowsheet Date 10/01/2014 Wilson Score Blood Edema Fundus Height Fundus Units Glucose Ketones Leukocytes Nitrite Labor Signs Protein Cervic Dilation Cervic Effacement Cervic Station neg none 25 cm none negative neg 0cm 0% - 4 Type Weight in lbs Pre/Post Dialysis Refused 149.740078947682 BP Diastolic BP Location Tested BP Systolic BP Type 60 112 sitting Fetus Heart Rate Present A 165 Present Fetus Movement A Yes Comments Flowsheet Date 12/05/2014 Wilson Score Blood Edema Fundus Height Fundus Units Glucose Ketones Leukocytes Nitrite Labor Signs Protein Cervic Dilation Cervic Effacement Cervic Station neg none 32 wks none negative none neg Type Weight in lbs Pre/Post Dialysis Refused 151.590482188874 BP Diastolic BP Location Tested BP Systolic BP Type 62 94 sitting Fetus Heart Rate Present A 144 Present Fetus Movement A Yes Comments on phone entire visit Flowsheet Date 12/26/2014 Wilson Score Blood Edema Fundus Height Fundus Units Glucose Ketones Leukocytes Nitrite Labor Signs Protein Cervic Dilation Cervic Effacement Cervic Station neg none 35 none negative none neg Type Weight in lbs Pre/Post Dialysis Refused 157.069994181445 BP Diastolic BP Location Tested BP Systolic BP Type 76 104 sitting Fetus Heart Rate Present A 164 Present Fetus Movement A Yes Comments Baby cuca Rodriguez. Plan for c-se ction 01/25/15. Wants Nexplenon for contraception after delivery. Plans to breast and bottle feed. Flowsheet Date 01/03/2015 Wilson Score Blood Edema Fundus Height Fundus Units Glucose Ketones Leukocytes Nitrite Labor Signs Protein Cervic Dilation Cervic Effacement Cervic Station neg none 36 cm none negative none neg 0cm 0% - 3 Type Weight in lbs Pre/Post Dialysis Refused 156.412825605940 BP Diastolic BP Location Tested BP Systolic BP Type 72 118 sitting Fetus Heart Rate Present A 144 Present Fetus Movement A Yes Comments Flowsheet Date 01/10/2015 Wilson Score Blood Edema Fundus Height Fundus Units Glucose Ketones Leukocytes Nitrite Labor Signs Protein Cervic Dilation Cervic Effacement Cervic Station neg none 36 cm none negative none neg 1cm 50% - 3 Type Weight in lbs Pre/Post Dialysis Refused 156.491377497787 BP Diastolic BP Location Tested BP Systolic BP Type 70 110 sitting Fetus Heart Rate Present A 150 Present Fetus Movement A Yes Comments c/s 01/25 Flowsheet Date 01/17/2015 Wilson Score Blood Edema Fundus Height Fundus Units Glucose Ketones Leukocytes Nitrite Labor Signs Protein Cervic Dilation Cervic Effacement Cervic Station neg none 36 wks none negative neg 0cm 40% - 3 Type Weight in lbs Pre/Post Dialysis Refused 161.083172937609 BP Diastolic BP Location Tested BP Systolic BP Type 64 114 sitting Fetus Heart Rate Present A 144 Present Fetus Movement A Yes Comments Changed Repeat to 01/22/15 at noon. Flowsheet Date 02/18/2015 Wilson Score Blood Edema Fundus Height Fundus Units Glucose Ketones Leukocytes Nitrite Labor Signs Protein Cervic Dilation Cervic Effacement Cervic Station none Type Weight in lbs Pre/Post Dialysis Refused 139.654381348176 BP Diastolic BP Location Tested BP Systolic BP Type 86 128 sitting Fetus Heart Rate Present Fetus Movement Comments Post op incision check. C/O soreness around incision. No sign of infection, appears ethan healing well. Flowsheet Date 05/07/2016 Wilson Score Blood Edema Fundus Height Fundus Units Glucose Ketones Leukocytes Nitrite Labor Signs Protein Cervic Dilation Cervic Effacement Cervic Station Type Weight in lbs Pre/Post Dialysis Refused 122.485510893934 BP Diastolic BP Location Tested BP Systolic BP Type 100 122 sitting Fetus Heart Rate Present Fetus Movement Comments Menstrual History Last Menstrual Date Menses Monthly On Bcp Conception Prior Menses Frequency Hcg Plus Date Menarche Onset Age 1004/22/2014 Genetic Screening And Infection History Question Response Note Patient's Age Will Be 35 Yea rs Or Older At Estimated Date of Delivery false Thalassemia (Yemeni, French, Mediterranean, Or Background): MCV < 80 false Neural Tube Defect (Meningom yelocele, Spina Bifida, Or Anencephaly) false Congenital Heart Defect false Down Syndrome false Oh-Sachs (eg, Adventist, Cajun, Montserratian-Sri Lankan) f alse Pily Disease false Sickle Cell Disease Or Trait () true sickle cell trait Hemophilia Or Other Blood Disorders false Muscular Dystrophy false Cystic Fibrosis false Austin's Chorea false Mental Retardation/Autism false If Yes, Was Person Tested For Fragile X? false Other Inherited Genetic Or Chromosomal Disorder false Maternal Metabolic Disorder (eg, Type 1 Diabetes , PKU) false Patient Or Baby's Father Had A Child With Defects Not Listed Above false Recurrent Loss, Or A Stillbirth false Medications (including Suppl ements, Vitamins, Herbs, OTC Drugs), Illicit/Recreational Drugs, Alcohol false If Yes, Agent(s) And Strength/Dosage false Any Other Genetic History false Live With Someone With TB Or Exposed To TB false Patient Or Partner Has History Of Genital Herpes false Rash Or Viral Illness Since Last Menstrual Perio d false History Of STD, Gonorrhea, Chlamydia, HPV, Syphi lis false Other Infection History false Delivery Information Delivery Date Delivery Type Labor Anesthesia Weeks Gestation Incision Type Labor Labor Length Hrs Delivered By Post Complications Tubal Sterilization Discharge Date Comments 5 [place] Regional-Ep idural [address] Jay KOEHLER false 01/24/[address] Giselle bhat Discharge Information Feeding Method Contraceptive Method Maternal HG B and HCT Levels Combination Ob Episode Information Episode Created Date Number of Fetuses Patient Bloodtype Patient rh Status Prepregnancy Weight lbs Domestic Partner Domestic Partner Phone Father Name Cloth Shrinking Machine Operator Helper Status 02/19/20 15 1 DELETED Mateo Calculation Initial Mateo Date Initial Exam Date Initial Exam Provider Initial Ultrasound Date Last Menstrual Period Date Ultra Sound Weeks Gestation 0 Eighteen To Twenty Week Mateo Update Ultra Sound Date Fundal Height At Umbil Quickening Date Ultra Sound Latest Weeks Gestation Final Mateo Confirmed By Final Mateo Confirmed Date Final Mateo Date Ultra Sound Latest Days Gestation 0 0 Menstrual History Last Menstrual Date Menses Monthly On Bcp Conception Prior Menses Frequency Hcg Plus Date Menarche Onset Age Delivery Information Delivery Date Delivery Type Labor Anesthesia Weeks Gestation Incision Type Labor Labor Length Hrs Delivered By Post Complications Tubal Sterilization Discharge Date Comments 5 Regional-Ep idural 38 false 20 Discharge Information Feeding Method Contraceptive Method Maternal HG B and HCT Levels
--- OUTSIDE RECORDS SUMMARY | 2025-05-17 15:31 | XMS_ITS | Encounter Summary ---
Author Organization [facility] Address [address] [place] [address] Care Team Providers Care Film Historian Name Role Phone Tong Emanuel Unavailable [phone] Nadiya Layton RN Unavailable [phone] Tong Emanuel Primary Care Provider Encounter Details Date Type Department Care Team (Late st Contact Info) Description 06/30/2023 Telephone [facility] Women's Health Maternal & Care [address] [phone] Hien Knapp Social History Tobacco Use Types Packs/Day Years Used Date Smoking Tobacco: Never Assessed Comments No Sex and Gender Information Value Date Recorded Sex Assigned at Female 05/16/2025 7:10 PM 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 Sex Female 5:34 AM HYDROGEN POWER PLANT MANAGER Gender Identity Not on file Sexual Orientation Not on file documented as of this encounter Plan of Treatment Not on file documented as of this encounter Visit Diagnoses Not on filedocumented in this encounter Care Teams Film Historian Relationship Specialty Start Date End Date Tong Emanuel APRN-CNP [address] [place] [phone] PCP - Attributed-[employer] Medicaid [place] 08/12/19 Tong Emanuel APRN-CNP [address] [place] [phone] PCP - General Nurse Practitioner 04/11/25 Nadiya Layton, RN School Cafeteria Head CookBottle Booth Attendant 11/29/23 11/29/23 documented as of this encounter
--- OUTSIDE RECORDS SUMMARY | 2025-05-17 15:31 | XMS_ITS | Encounter Summary ---
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 [place] [address] Luis Antonio Meadows Scheduling Social History Tobacco Use Types Packs/Day Years Used Date Smoking Tobacco: Never Assessed AUDIT-C Answer Date Recorded Q1: How often do you have a drink containing alc ohol? Never 09/14/2023 Q2: How many drinks containi ng alcohol do you have on a typical day when you are drinking? 1 or 2 09/14/2023 Q3: How often do you have si x or more drinks on one occasion? Less than monthly 09/14/2023 Overall Financial Resource Strain (CARDIA) Answe r Date Recorded How hard is it for you to pa y for the very basics like food, housing, medical care, and heating? Not hard at all 09/14/2023 [facility] - Occupational Stress Questionnaire Answer Date Recorded Do you feel stress - tense, restless, nervous, or anxious, or unable to sleep at night because your mind is troubled all the time - these days? Not at all 09/14/2023 Hunger Vital Sign Answer Date Recorded Within the past 12 months, y ou worried that your food would run out before you got the money to buy more. Never true 09/14/19 24 Within the past 12 months, t he food you bought just didn't last and you didn't have money to get more. Never true 09/14/2023 PRAPARE - Transportation Answer Date Re corded In the past 12 months, has l ack of transportation kept you from medical appointments or from getting medications? No 11/2023 In the past 12 months, has l ack of transportation kept you from meetings, work, or from getting things needed for daily living? No 09/14/2023 Housing Stability Vital Sign Answer Herbie e Recorded In the last 12 months, was t here a time when you were not able to pay the mortgage or rent on time? No 09/14/2023 In the last 12 months, how many places have you lived? 1 09/14/2023 In the last 12 months, was t here a time when you did not have a steady place to sleep or slept in a chcf (including now)? No 09/14/2023 [place] Depression Scale Answer Date Recorded [place] Depression Scale Total 2 07/21/2023 The thought of harming myself has occurred to me . 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 Gender Identity Not on file Sexual Orientation Not on file documented as of this encounter Plan of Treatment Not on file documented as of this encounter Visit Diagnoses Not on filedocumented in this encounter Care Teams Tumbler Dyeing Machine Operator Relationship Specialty Start Date End Date Tong Emanuel APRN-BRACELET FORMER [address] [place] [address] Lisa Brennan ZEINAB FERRARA [phone] PCP - Attributed-[employer] Medicaid [place] 08/12/19 Tong Emanuel APRN-BRACELET FORMER [address] [place] [address] [place] [phone] PCP - General Nurse Practitioner 04/11/25 Nadiya Layton, RN Gas Welding Equipment MechanicClinical Scientist 11/29/23 11/29/23 documented as of this encounter
== END 2025-05-16 18:40 | disposition left against medical advice (07) ==
LOC: ANHED 19:08
DX: O16.5 Unspecified maternal hypertension, complicating the puerperium (principal)
CPT/HCPCS: 99199